=== PATIENT | female | born 1950 | race Caucasian/White ===

== ENCOUNTER 2016-06-20 13:03 | Outpatient (RCR) | payer MEDICARE ==
[2016-06-23] MEDS ORDERED: FOLI1TAB6 PO (10:51)
[2016-06-23] MEDS ORDERED: CALC600T12 PO (10:51)
[2016-06-23] MEDS ORDERED: ASCO1TAB12 PO (10:51)
[2016-06-23] MEDS ORDERED: RAMI2.5C PO (10:51)
[2016-06-23] MEDS ORDERED: IBUP-30 PO (10:51)
[2016-06-23] MEDS ORDERED: PRAV40TA2 PO (10:51)
[2016-06-23] MEDS ORDERED: OMG1KC PO (10:51)
[2016-06-23] MEDS ORDERED: AMIT50TA3 PO (10:51)
[2016-06-23] MEDS ORDERED: RT-ALBUINH IH (10:51)
[2016-06-23] MEDS ORDERED: ESTR0.5T PO (10:51)
[2016-06-23] MEDS ORDERED: CYCL5TAB PO (10:51)
[2016-06-23] MEDS ORDERED: HYDR-3812 PO (11:52)
== END 2016-09-18 | disposition home or self-care (01) ==
LOC: FS 13:03
PROVIDERS: ATTEND Internal Medicine Hematology & Oncology
DX: C34.2 Malignant neoplasm of middle lobe, bronchus or lung (principal); C77.1 Secondary and unspecified malignant neoplasm of intrathoracic lymph nodes; J44.9 Chronic obstructive pulmonary disease, unspecified; F17.210 Nicotine dependence, cigarettes, uncomplicated; I10 Essential (primary) hypertension; E78.00 Pure hypercholesterolemia, unspecified; Z79.899 Other long term (current) drug therapy
CPT/HCPCS: 99214

== ENCOUNTER → 2016-06-22 | Outpatient (CLI) | payer MEDICARE ==
[~2016-06-22] MED LIST: AMIT50TA3 PO; ASCO1TAB12 PO; CALC600T12 PO; CYCL5TAB PO; ESTR0.5T PO; FOLI1TAB6 PO; HYDR-3812 PO; IBUP-30 PO; OMG1KC PO; PRAV40TA2 PO; RAMI2.5C PO; RT-ALBUINH IH
== END ==
LOC: PREOP 15:05
PROVIDERS: ATTEND Surgery
DX: Z01.818 Encounter for other preprocedural examination (principal); C34.2 Malignant neoplasm of middle lobe, bronchus or lung

== ENCOUNTER 2016-06-23 08:35 | Day surgery (SDC) | payer MEDICARE ==
[~2016-06-23] VITALS: Ht 157.5 cm; Wt 75.0 kg
[2016-06-23] MEDS ORDERED: ceFAZolin 1,000 MG (ANCEF) VIAL ONE (09:01)
[2016-06-23] MEDS ORDERED: NS (IVPB) 50 ML ONE (09:01)
[2016-06-23 09:30] VITALS: BP 129/65
[2016-06-23] MEDS ORDERED: proPOfol 200 MG/20 ML (DIPRIVAN) VIAL IV ONE (09:52)
[2016-06-23] MEDS ORDERED: ONDANSETRON 4 MG/2 ML (SDV) Z0FRAN ONE (09:52)
[2016-06-23] MEDS ORDERED: DEXAMETHASONE PF 10 MG/ML (DECADRON) VIAL ONE (09:52)
[2016-06-23] MEDS ORDERED: MIDAZOLAM 2 MG/2 ML (VERSED) VIAL ONE (09:52)
[2016-06-23] MEDS ORDERED: LACTATED RINGERS 1,000 ML IV PRN (09:53)
[2016-06-23] MEDS ORDERED: fentaNYL INJECTION 100 MCG/2 ML AMP ONE (09:53)
[2016-06-23] MEDS ORDERED: ASCO1TAB12 PO (10:51)
[2016-06-23] MEDS ORDERED: RAMI2.5C PO (10:51)
[2016-06-23] MEDS ORDERED: OMG1KC PO (10:51)
[2016-06-23] MEDS ORDERED: PRAV40TA2 PO (10:51)
[2016-06-23] MEDS ORDERED: ESTR0.5T PO (10:51)
[2016-06-23] MEDS ORDERED: AMIT50TA3 PO (10:51)
[2016-06-23] MEDS ORDERED: RT-ALBUINH IH (10:51)
[2016-06-23] MEDS ORDERED: FOLI1TAB6 PO (10:51)
[2016-06-23] MEDS ORDERED: CYCL5TAB PO (10:51)
[2016-06-23] MEDS ORDERED: IBUP-30 PO (10:51)
[2016-06-23] MEDS ORDERED: CALC600T12 PO (10:51)
[2016-06-23] MEDS ORDERED: BUP/EPI 0.25% 1:200,000 (MARCAINE) 30 ML VIAL ONE (10:54)
[2016-06-23] MEDS ORDERED: HEParin (CENTRAL IV FLUSH) 500 UNIT/5 ML SYR ONE (10:54)
[2016-06-23] MEDS ORDERED: SEVOFLURANE (ULTANE) 15 ML INHAL SOLN ONE (11:46)
[2016-06-23] MEDS ORDERED: LACTATED RINGERS 1,000 ML IV ONE (11:47)
--- NOTE | 2016-06-23 11:51 | Progress Note-Pre Operative ---
Pre-Operative Progress Note H&P Reviewed The H&P was reviewed, patient examined and no changes noted. Date H&P Reviewed: Jun 23, 2016 Time H&P Reviewed: 08:15 Pre-Operative Diagnosis: Inoperable carcinoma of right lung ANANYA ABREU MD Jun 23, 2016 11:51 am
[2016-06-23] MEDS ORDERED: HYDR-3812 PO (11:52)
--- NOTE | 2016-06-23 11:52 | Progress Note-Post Operative ---
Post-Operative Progess Note Pre-Operative Diagnosis Inoperable carcinoma of right lung Post-Operative Diagnosis Same Post-Op Procedure Note Date of Procedure: Jun 23, 2016 Name of Procedure: Lnxntl-u-Ajxx placement Anesthesia Type Gen. Estimated blood loss (mL): Minimal ANANYA ABREU MD Jun 23, 2016 11:52 am
--- NOTE | 2016-06-23 11:53 | Discharge Inst-Simple/Standard ---
Discharge Inst-Standard Discharge Medications New, Converted or Re-Newed RX: RX on Chart Patient Instructions/Follow Up Plan of Care/Instructions/FU: Dressings off in 48 hours. May use the port Activity as Tolerated: Yes Discharge Diet: No Restrictions ANANYA ABREU MD Jun 23, 2016 11:53 am
[2016-06-23] MEDS ORDERED: morphine INJ 10 MG/ML 1ML (SYR OR VIAL) IV PRN (12:00)
[2016-06-23] MEDS ORDERED: ONDANSETRON 4 MG/2 ML (SDV) Z0FRAN IV PRN (12:00)
[2016-06-23] MEDS ORDERED: CATHETER FLUSH 10 ML SYR IV PRN (12:15)
[2016-06-23] MEDS ORDERED: ceFAZolin 1 GM/NS 50 ML IVPB IV ONE ×2 (12:15)
[2016-06-23 12:45] VITALS: BP 116/54
[2016-06-23 13:15] VITALS: BP 106/54
[2016-06-23] MEDS ORDERED: HYDROcodone/APAP 5 MG/325 MG (LORTAB) TAB PO ONE (13:30)
[2016-06-23 13:45] VITALS: BP 147/63
--- NOTE | 2016-06-23 18:20 | Diagnostic Imaging Report ---
INDICATION: Port placement. Fluoroscopy was utilized in the operating room during placement of chest wall port. Digital image obtained over the upper thoracic spine reveals catheter reaching the level of upper superior vena cava. IMPRESSION: Catheter reaches superior vena cava. Dictated by: Dictated on workstation # [id number]
--- NOTE | 2016-06-23 19:14 | OPERATIVE REPORT ---
PROCEDURE PHYSICIAN: ANANYA ABREU DATE OF PROCEDURE: 06/23/2016 PREOPERATIVE DIAGNOSIS: Carcinoma of the right lung. POSTOPERATIVE DIAGNOSIS: Carcinoma of the right lung. OPERATION: 1. Ultrasound localization of right internal jugular vein. 2. Intraoperative fluoroscopy. 3. Qxkufh-i-Nghb placement. SURGEON: Dr. Abreu. INDICATION FOR THE PROCEDURE: This lady is due to receive systemic chemotherapy to manage inoperable carcinoma of the middle lobe of the right lung. To facilitate this, placing an Kgclhs-b-Gwjp was felt to be reasonable. Informed consent was obtained after reviewing the operative details and complications of hematoma, wound infection, bacteremia and malfunction of the catheter, requiring replacement. DESCRIPTION OF PROCEDURE: She was placed supine on the operative table and general anesthesia induced using a laryngeal mask airway. A gram of Ancef was administered intravenously as prophylaxis against wound infection. Sequential compression devices were placed around her legs, to minimize the risk of venous thrombosis. Her neck and upper chest were prepared and draped in the usual sterile manner. Right internal jugular vein was localized using a 10 MHz ultrasound probe and a floppy guidewire introduced into the heart, under fluoroscopy. A subcutaneous pocket was created over the infraclavicular fossa and the Carlton catheter brought into the neck, in a retrograde fashion. It was advanced into the heart, under fluoroscopy using the peel-away sheath. The catheter was then pulled back to the superior vena cava and connected to the Ivmnvz-k-Btxw, that had been primed with heparinized saline. I was able to aspirate and flush the system without any difficulty. The port was then secured to the pectoralis tissue, using 2-0 Prolene sutures. The incision was then closed using 3-0 Vicryl for the dermal layer and 4-0 Vicryl for skin, in a subcuticular fashion. Preemptive analgesia was established using 0.25% Marcaine with epinephrine. She tolerated the procedure well, was extubated in the operating room and taken to the recovery room in a stable condition. [place], sponges, and instruments were correct at the end of the operation. Job ID: [id number] Dictated Date: 06/23/2016 11:57:12 Assistant Softball Coach Date: 06/23/2016 19:12:06 / delphine
== END 2016-06-23 13:46 | disposition home or self-care (01) ==
LOC: SDC 08:35
PROVIDERS: ATTEND Surgery
DX: C34.2 Malignant neoplasm of middle lobe, bronchus or lung (principal)
CPT/HCPCS: 87081

== ENCOUNTER 2016-08-21 13:38 | Outpatient (RCR) | payer MEDICARE ==
[2016-06-22 13:42] LABS: BASOPHILS # (AUTO) 0.1 10^3/uL (0.0-0.1); BASOPHILS % (AUTO) 0 % (0-10); EOSINOPHILS # (AUTO) 0.3 10^3/uL (0.0-0.3); EOSINOPHILS % (AUTO) 2 % (0-10); LYMPHOCYTES % (AUTO) 26 % (12-44); MEAN CORPUSCULAR HEMOGLOBIN 23 PG (25-34); MEAN CORPUSCULAR HGB CONC 30 G/DL (32-36); MEAN CORPUSCULAR VOLUME 76 FL (80-99); MEAN PLATELET VOLUME 8.4 FL (7.4-10.4); MONOCYTES # (AUTO) 1.4 X 10^3 (0.0-1.0); MONOCYTES % (AUTO) 12 % (0-12); NEUTROPHILS # (AUTO) 6.7 X 10^3 (1.8-7.8); NEUTROPHILS % (AUTO) 59 % (42-75); PLATELET COUNT 696 10^3/uL (130-400); RED BLOOD COUNT 3.81 10^6/uL (4.35-5.85); RED CELL DISTRIBUTION WIDTH 18.7 % (10.0-14.5); WHITE BLOOD COUNT 11.5 10^3/uL (4.3-11.0)
[2016-06-22 14:23] LABS: ALANINE AMINOTRANSFERASE 16 U/L (0-55); ALBUMIN 3.8 G/DL (3.2-4.5); ANION GAP 10 MMOL/L (5-14); ASPARTATE AMINO TRANSFERASE 16 U/L (5-34); BILIRUBIN,TOTAL 0.2 MG/DL (0.1-1.0); BLOOD UREA NITROGEN 14 MG/DL (7-18); BUN/CREATININE RATIO 18; CALCIUM 9.1 MG/DL (8.5-10.1); CARBON DIOXIDE 25 MMOL/L (21-32); CHLORIDE 104 MMOL/L (98-107); CREATININE SERUM 0.77 MG/DL (0.60-1.30); GFR ESTIMATED > 60; GLUCOSE 112 MG/DL (70-105); POTASSIUM 3.9 MMOL/L (3.6-5.0); SODIUM 139 MMOL/L (135-145); TOTAL PROTEIN 6.8 G/DL (6.4-8.2)
[2016-07-03 10:43] LABS: BASOPHILS % (AUTO) 0 % (0-10); EOSINOPHILS % (AUTO) 0 % (0-10); LYMPHOCYTES # (AUTO) 0.7 X 10^3 (1.0-4.0); LYMPHOCYTES % (AUTO) 5 % (12-44); MEAN CORPUSCULAR HEMOGLOBIN 23 PG (25-34); MEAN CORPUSCULAR HGB CONC 30 G/DL (32-36); MEAN CORPUSCULAR VOLUME 75 FL (80-99); MEAN PLATELET VOLUME 8.6 FL (7.4-10.4); MONOCYTES # (AUTO) 0.1 X 10^3 (0.0-1.0); MONOCYTES % (AUTO) 1 % (0-12); NEUTROPHILS # (AUTO) 12.8 X 10^3 (1.8-7.8); NEUTROPHILS % (AUTO) 94 % (42-75); PLATELET COUNT 630 10^3/uL (130-400); RED CELL DISTRIBUTION WIDTH 17.8 % (10.0-14.5); WHITE BLOOD COUNT 13.6 10^3/uL (4.3-11.0)
[2016-07-03 11:14] LABS: ALANINE AMINOTRANSFERASE 12 U/L (0-55); ALBUMIN 3.8 G/DL (3.2-4.5); ANION GAP 10 MMOL/L (5-14); ASPARTATE AMINO TRANSFERASE 12 U/L (5-34); BILIRUBIN,TOTAL 0.1 MG/DL (0.1-1.0); BLOOD UREA NITROGEN 15 MG/DL (7-18); BUN/CREATININE RATIO 21; CALCIUM 9.2 MG/DL (8.5-10.1); CARBON DIOXIDE 22 MMOL/L (21-32); CHLORIDE 105 MMOL/L (98-107); GFR ESTIMATED > 60; GLUCOSE 192 MG/DL (70-105); POTASSIUM 3.7 MMOL/L (3.6-5.0); SODIUM 137 MMOL/L (135-145); TOTAL PROTEIN 6.7 G/DL (6.4-8.2)
[2016-07-10 09:04] LABS: BASOPHILS % (AUTO) 0 % (0-10); EOSINOPHILS % (AUTO) 0 % (0-10); LYMPHOCYTES # (AUTO) 0.5 X 10^3 (1.0-4.0); LYMPHOCYTES % (AUTO) 5 % (12-44); MEAN CORPUSCULAR HEMOGLOBIN 24 PG (25-34); MEAN CORPUSCULAR HGB CONC 31 G/DL (32-36); MEAN CORPUSCULAR VOLUME 77 FL (80-99); MEAN PLATELET VOLUME 8.3 FL (7.4-10.4); MONOCYTES # (AUTO) 0.1 X 10^3 (0.0-1.0); MONOCYTES % (AUTO) 1 % (0-12); NEUTROPHILS # (AUTO) 8.4 X 10^3 (1.8-7.8); NEUTROPHILS % (AUTO) 94 % (42-75); PLATELET COUNT 552 10^3/uL (130-400); RED BLOOD COUNT 3.63 10^6/uL (4.35-5.85); RED CELL DISTRIBUTION WIDTH 19.7 % (10.0-14.5)
[2016-07-10 09:37] LABS: ANION GAP 11 MMOL/L (5-14); BLOOD UREA NITROGEN 15 MG/DL (7-18); BUN/CREATININE RATIO 19; CALCIUM 9.1 MG/DL (8.5-10.1); CARBON DIOXIDE 21 MMOL/L (21-32); CHLORIDE 103 MMOL/L (98-107); CREATININE SERUM 0.77 MG/DL (0.60-1.30); GFR ESTIMATED > 60; GLUCOSE 228 MG/DL (70-105); POTASSIUM 3.9 MMOL/L (3.6-5.0); SODIUM 135 MMOL/L (135-145)
[2016-07-17 09:12] LABS: BASOPHILS % (AUTO) 0 % (0-10); EOSINOPHILS % (AUTO) 0 % (0-10); LYMPHOCYTES # (AUTO) 0.3 X 10^3 (1.0-4.0); LYMPHOCYTES % (AUTO) 6 % (12-44); MEAN CORPUSCULAR HEMOGLOBIN 25 PG (25-34); MEAN CORPUSCULAR HGB CONC 31 G/DL (32-36); MEAN CORPUSCULAR VOLUME 80 FL (80-99); MEAN PLATELET VOLUME 8.5 FL (7.4-10.4); MONOCYTES % (AUTO) 1 % (0-12); NEUTROPHILS # (AUTO) 5.6 X 10^3 (1.8-7.8); NEUTROPHILS % (AUTO) 93 % (42-75); PLATELET COUNT 516 10^3/uL (130-400); RED BLOOD COUNT 3.33 10^6/uL (4.35-5.85); RED CELL DISTRIBUTION WIDTH 22.4 % (10.0-14.5)
[2016-07-17 09:39] LABS: ANION GAP 11 MMOL/L (5-14); BLOOD UREA NITROGEN 13 MG/DL (7-18); BUN/CREATININE RATIO 18; CALCIUM 9.1 MG/DL (8.5-10.1); CARBON DIOXIDE 23 MMOL/L (21-32); CHLORIDE 103 MMOL/L (98-107); CREATININE SERUM 0.71 MG/DL (0.60-1.30); GFR ESTIMATED > 60; GLUCOSE 198 MG/DL (70-105); POTASSIUM 3.7 MMOL/L (3.6-5.0); SODIUM 137 MMOL/L (135-145)
[2016-07-24 08:51] LABS: BASOPHILS % (AUTO) 0 % (0-10); EOSINOPHILS # (AUTO) 0.1 10^3/uL (0.0-0.3); EOSINOPHILS % (AUTO) 1 % (0-10); LYMPHOCYTES # (AUTO) 0.5 X 10^3 (1.0-4.0); LYMPHOCYTES % (AUTO) 9 % (12-44); MEAN CORPUSCULAR HEMOGLOBIN 25 PG (25-34); MEAN CORPUSCULAR HGB CONC 31 G/DL (32-36); MEAN CORPUSCULAR VOLUME 81 FL (80-99); MEAN PLATELET VOLUME 8.9 FL (7.4-10.4); MONOCYTES # (AUTO) 0.9 X 10^3 (0.0-1.0); MONOCYTES % (AUTO) 16 % (0-12); NEUTROPHILS # (AUTO) 4.3 X 10^3 (1.8-7.8); NEUTROPHILS % (AUTO) 74 % (42-75); PLATELET COUNT 469 10^3/uL (130-400); RED BLOOD COUNT 3.29 10^6/uL (4.35-5.85); RED CELL DISTRIBUTION WIDTH 23.7 % (10.0-14.5); WHITE BLOOD COUNT 5.9 10^3/uL (4.3-11.0)
[2016-07-24 09:28] LABS: ALANINE AMINOTRANSFERASE 21 U/L (0-55); ALBUMIN 3.3 G/DL (3.2-4.5); ANION GAP 9 MMOL/L (5-14); ASPARTATE AMINO TRANSFERASE 16 U/L (5-34); BILIRUBIN,TOTAL 0.2 MG/DL (0.1-1.0); BLOOD UREA NITROGEN 9 MG/DL (7-18); BUN/CREATININE RATIO 13; CALCIUM 8.9 MG/DL (8.5-10.1); CARBON DIOXIDE 25 MMOL/L (21-32); CHLORIDE 103 MMOL/L (98-107); GFR ESTIMATED > 60; GLUCOSE 156 MG/DL (70-105); MAGNESIUM 1.7 MG/DL (1.8-2.4); POTASSIUM 3.7 MMOL/L (3.6-5.0); SODIUM 137 MMOL/L (135-145)
[2016-07-31 09:17] LABS: BASOPHILS % (AUTO) 0 % (0-10); EOSINOPHILS # (AUTO) 0.1 10^3/uL (0.0-0.3); EOSINOPHILS % (AUTO) 1 % (0-10); LYMPHOCYTES # (AUTO) 0.9 X 10^3 (1.0-4.0); LYMPHOCYTES % (AUTO) 12 % (12-44); MEAN CORPUSCULAR HEMOGLOBIN 26 PG (25-34); MEAN CORPUSCULAR HGB CONC 32 G/DL (32-36); MEAN CORPUSCULAR VOLUME 82 FL (80-99); MEAN PLATELET VOLUME 8.7 FL (7.4-10.4); MONOCYTES # (AUTO) 1.2 X 10^3 (0.0-1.0); MONOCYTES % (AUTO) 17 % (0-12); NEUTROPHILS # (AUTO) 4.9 X 10^3 (1.8-7.8); NEUTROPHILS % (AUTO) 69 % (42-75); PLATELET COUNT 483 10^3/uL (130-400); RED CELL DISTRIBUTION WIDTH 23.3 % (10.0-14.5); WHITE BLOOD COUNT 7.1 10^3/uL (4.3-11.0)
[2016-07-31 09:37] LABS: ANION GAP 9 MMOL/L (5-14); BLOOD UREA NITROGEN 14 MG/DL (7-18); BUN/CREATININE RATIO 18; CALCIUM 8.9 MG/DL (8.5-10.1); CARBON DIOXIDE 25 MMOL/L (21-32); CHLORIDE 103 MMOL/L (98-107); CREATININE SERUM 0.79 MG/DL (0.60-1.30); GFR ESTIMATED > 60; GLUCOSE 106 MG/DL (70-105); POTASSIUM 3.8 MMOL/L (3.6-5.0); SODIUM 137 MMOL/L (135-145)
[2016-08-07 09:19] LABS: BASOPHILS % (AUTO) 0 % (0-10); EOSINOPHILS # (AUTO) 0.1 10^3/uL (0.0-0.3); EOSINOPHILS % (AUTO) 2 % (0-10); LYMPHOCYTES % (AUTO) 17 % (12-44); MEAN CORPUSCULAR HEMOGLOBIN 26 PG (25-34); MEAN CORPUSCULAR HGB CONC 31 G/DL (32-36); MEAN CORPUSCULAR VOLUME 84 FL (80-99); MEAN PLATELET VOLUME 8.8 FL (7.4-10.4); MONOCYTES % (AUTO) 16 % (0-12); NEUTROPHILS # (AUTO) 3.9 X 10^3 (1.8-7.8); NEUTROPHILS % (AUTO) 66 % (42-75); PLATELET COUNT 452 10^3/uL (130-400); RED BLOOD COUNT 3.77 10^6/uL (4.35-5.85); WHITE BLOOD COUNT 5.9 10^3/uL (4.3-11.0)
[2016-08-07 09:51] LABS: ANION GAP 8 MMOL/L (5-14); BLOOD UREA NITROGEN 10 MG/DL (7-18); BUN/CREATININE RATIO 15; CARBON DIOXIDE 25 MMOL/L (21-32); CHLORIDE 106 MMOL/L (98-107); CREATININE SERUM 0.68 MG/DL (0.60-1.30); GFR ESTIMATED > 60; GLUCOSE 109 MG/DL (70-105); POTASSIUM 3.9 MMOL/L (3.6-5.0); SODIUM 139 MMOL/L (135-145)
[2016-08-14 09:45] LABS: BASOPHILS % (AUTO) 0 % (0-10); EOSINOPHILS # (AUTO) 0.1 10^3/uL (0.0-0.3); EOSINOPHILS % (AUTO) 1 % (0-10); LYMPHOCYTES # (AUTO) 1.1 X 10^3 (1.0-4.0); LYMPHOCYTES % (AUTO) 18 % (12-44); MEAN CORPUSCULAR HEMOGLOBIN 27 PG (25-34); MEAN CORPUSCULAR HGB CONC 32 G/DL (32-36); MEAN CORPUSCULAR VOLUME 86 FL (80-99); MONOCYTES # (AUTO) 0.8 X 10^3 (0.0-1.0); MONOCYTES % (AUTO) 14 % (0-12); NEUTROPHILS # (AUTO) 4.1 X 10^3 (1.8-7.8); NEUTROPHILS % (AUTO) 68 % (42-75); PLATELET COUNT 399 10^3/uL (130-400); RED BLOOD COUNT 3.85 10^6/uL (4.35-5.85); RED CELL DISTRIBUTION WIDTH 26.5 % (10.0-14.5); WHITE BLOOD COUNT 6.1 10^3/uL (4.3-11.0)
[2016-08-14 10:17] LABS: ALANINE AMINOTRANSFERASE 23 U/L (0-55); ALBUMIN 3.7 G/DL (3.2-4.5); ANION GAP 8 MMOL/L (5-14); ASPARTATE AMINO TRANSFERASE 15 U/L (5-34); BILIRUBIN,TOTAL 0.3 MG/DL (0.1-1.0); BLOOD UREA NITROGEN 15 MG/DL (7-18); BUN/CREATININE RATIO 21; CALCIUM 9.5 MG/DL (8.5-10.1); CARBON DIOXIDE 25 MMOL/L (21-32); CHLORIDE 104 MMOL/L (98-107); CREATININE SERUM 0.71 MG/DL (0.60-1.30); GFR ESTIMATED > 60; GLUCOSE 114 MG/DL (70-105); MAGNESIUM 1.9 MG/DL (1.8-2.4); POTASSIUM 3.9 MMOL/L (3.6-5.0); SODIUM 137 MMOL/L (135-145); TOTAL PROTEIN 6.3 G/DL (6.4-8.2)
[~2016-08-21] VITALS: Ht 157.5 cm; Wt 75.3 kg
[~2016-08-21 13:38] MED LIST changes: +ACETAMINOPHEN 500 MG TAB (TYLENOL) CANCER CTR ONE; +CARBOPLATIN 170 MG in D5W 50 ML IV(CANCER CTR) 50 ML IV SCH; +FAMOTIDINE 20MG/2ML IV (CANCER CTR) IV SCH; +FERRIC CARBOXYMALTOSE (CANCER) 750 MG in NS (IVPB) CANCER CENTER 250 ML IV SCH; +NORMAL SALINE IV SCH; +NS IV 1000 ML (CANCER CTR) IV SCH; +NS IV 500 ML (CANCER CENTER) 500 ML ONE; +NS IV SCH; +PACLITAXEL IV SCH; +PALONOSETRON 0.25 MG, DEXAMETHASONE 10 MG/NS 50 ML IVPB IV PRN; +diphenhydrAMINE 25 MG TAB (BENADRYL) CANCER CENTER PO SCH; +diphenhydrAMINE 50 MG/ML INJ (CANCER CENTER) IV PRN
== END 2016-09-19 | disposition home or self-care (01) ==
LOC: ONC 13:38
PROVIDERS: ATTEND Internal Medicine Hematology & Oncology
DX: Z51.11 Encounter for antineoplastic chemotherapy (principal); Z51.0 Encounter for antineoplastic radiation therapy; C34.2 Malignant neoplasm of middle lobe, bronchus or lung; C77.1 Secondary and unspecified malignant neoplasm of intrathoracic lymph nodes; J44.9 Chronic obstructive pulmonary disease, unspecified; F17.210 Nicotine dependence, cigarettes, uncomplicated; I10 Essential (primary) hypertension; E78.00 Pure hypercholesterolemia, unspecified; Z79.899 Other long term (current) drug therapy
CPT/HCPCS: 36415; 36430; 36591; 77280; 77290; 77295; 77300; 77307; 77332; 77334; 77336; 77417; 77470; 80048; 80053; 82728; 83540; 83735; 85025; 86850; 86900; 86901; 86920; 96367; 96375; 96413; 96417; 99213; 99214

== ENCOUNTER 2016-12-11 10:50 | Outpatient (RCR) | payer MEDICARE ==
[2016-09-20 11:19] LABS: BASOPHILS % (AUTO) 1 % (0-10); EOSINOPHILS # (AUTO) 0.3 10^3/uL (0.0-0.3); EOSINOPHILS % (AUTO) 4 % (0-10); LYMPHOCYTES % (AUTO) 14 % (12-44); MEAN CORPUSCULAR HEMOGLOBIN 29 PG (25-34); MEAN CORPUSCULAR HGB CONC 32 G/DL (32-36); MEAN CORPUSCULAR VOLUME 91 FL (80-99); MEAN PLATELET VOLUME 9.1 FL (7.4-10.4); MONOCYTES % (AUTO) 14 % (0-12); NEUTROPHILS # (AUTO) 4.9 X 10^3 (1.8-7.8); NEUTROPHILS % (AUTO) 67 % (42-75); PLATELET COUNT 508 10^3/uL (130-400); RED CELL DISTRIBUTION WIDTH 23.8 % (10.0-14.5); WHITE BLOOD COUNT 7.2 10^3/uL (4.3-11.0)
[2016-09-20 11:47] LABS: ALANINE AMINOTRANSFERASE 17 U/L (0-55); ALBUMIN 4.1 G/DL (3.2-4.5); ANION GAP 9 MMOL/L (5-14); ASPARTATE AMINO TRANSFERASE 15 U/L (5-34); BILIRUBIN,TOTAL 0.2 MG/DL (0.1-1.0); BLOOD UREA NITROGEN 11 MG/DL (7-18); BUN/CREATININE RATIO 16; CALCIUM 9.7 MG/DL (8.5-10.1); CARBON DIOXIDE 26 MMOL/L (21-32); CHLORIDE 106 MMOL/L (98-107); CREATININE SERUM 0.67 MG/DL (0.60-1.30); GFR ESTIMATED > 60; GLUCOSE 106 MG/DL (70-105); MAGNESIUM 1.9 MG/DL (1.8-2.4); POTASSIUM 3.8 MMOL/L (3.6-5.0); SODIUM 141 MMOL/L (135-145)
[2016-09-20 11:49] LABS: BAND NEUTROPHILS 3 %; BASOPHILS % (MANUAL) 1 %; EOSINOPHILS % (MANUAL) 1 %; LYMPHOCYTES % (MANUAL) 18 %; NEUTROPHILS % (MANUAL) 65 %; REACTIVE LYMPHOCYTES 2 %
[2016-09-20 11:50] LABS: ANISOCYTOSIS MODERATE; HOWELL-JOLLY BODIES MODERATE; POIKILOCYTOSIS SLIGHT; TARGET CELLS SLIGHT
[2016-10-02 10:11] LABS: BASOPHILS % (AUTO) 0 % (0-10); EOSINOPHILS # (AUTO) 0.2 10^3/uL (0.0-0.3); EOSINOPHILS % (AUTO) 3 % (0-10); LYMPHOCYTES % (AUTO) 13 % (12-44); MEAN CORPUSCULAR HEMOGLOBIN 29 PG (25-34); MEAN CORPUSCULAR HGB CONC 32 G/DL (32-36); MEAN CORPUSCULAR VOLUME 92 FL (80-99); MEAN PLATELET VOLUME 9.1 FL (7.4-10.4); MONOCYTES # (AUTO) 0.6 X 10^3 (0.0-1.0); MONOCYTES % (AUTO) 8 % (0-12); NEUTROPHILS # (AUTO) 5.9 X 10^3 (1.8-7.8); NEUTROPHILS % (AUTO) 76 % (42-75); PLATELET COUNT 484 10^3/uL (130-400); RED BLOOD COUNT 3.72 10^6/uL (4.35-5.85); RED CELL DISTRIBUTION WIDTH 21.2 % (10.0-14.5); WHITE BLOOD COUNT 7.8 10^3/uL (4.3-11.0)
[2016-10-02 10:32] LABS: ANION GAP 9 MMOL/L (5-14); BLOOD UREA NITROGEN 13 MG/DL (7-18); BUN/CREATININE RATIO 19 (0-20); CALCIUM 9.4 MG/DL (8.5-10.1); CARBON DIOXIDE 26 MMOL/L (21-32); CHLORIDE 106 MMOL/L (98-107); CREATININE SERUM 0.68 MG/DL (0.60-1.30); GFR ESTIMATED > 60; GLUCOSE 124 MG/DL (70-105); HEMOLYSIS 3 (-100-29); ICTERUS 0.2 (-100-1.9); LIPEMIA 6 (-100-49); POTASSIUM 3.7 MMOL/L (3.6-5.0); SODIUM 141 MMOL/L (135-145)
[2016-10-09 10:23] LABS: BASOPHILS % (AUTO) 0 % (0-10); EOSINOPHILS # (AUTO) 0.1 10^3/uL (0.0-0.3); EOSINOPHILS % (AUTO) 1 % (0-10); LYMPHOCYTES # (AUTO) 0.8 X 10^3 (1.0-4.0); LYMPHOCYTES % (AUTO) 13 % (12-44); MEAN CORPUSCULAR HEMOGLOBIN 31 PG (25-34); MEAN CORPUSCULAR HGB CONC 33 G/DL (32-36); MEAN CORPUSCULAR VOLUME 92 FL (80-99); MONOCYTES # (AUTO) 0.8 X 10^3 (0.0-1.0); MONOCYTES % (AUTO) 13 % (0-12); NEUTROPHILS # (AUTO) 4.3 X 10^3 (1.8-7.8); NEUTROPHILS % (AUTO) 72 % (42-75); PLATELET COUNT 566 10^3/uL (130-400); RED BLOOD COUNT 3.57 10^6/uL (4.35-5.85); RED CELL DISTRIBUTION WIDTH 20.8 % (10.0-14.5)
[2016-10-09 10:44] LABS: ANION GAP 8 MMOL/L (5-14); BLOOD UREA NITROGEN 12 MG/DL (7-18); BUN/CREATININE RATIO 18 (0-20); CALCIUM 9.4 MG/DL (8.5-10.1); CARBON DIOXIDE 27 MMOL/L (21-32); CHLORIDE 104 MMOL/L (98-107); CREATININE SERUM 0.66 MG/DL (0.60-1.30); GFR ESTIMATED > 60; GLUCOSE 100 MG/DL (70-105); HEMOLYSIS 4 (-100-29); ICTERUS 0.3 (-100-1.9); LIPEMIA 4 (-100-49); POTASSIUM 3.9 MMOL/L (3.6-5.0); SODIUM 139 MMOL/L (135-145)
[2016-10-23 11:03] LABS: BASOPHILS % (AUTO) 0 % (0-10); EOSINOPHILS # (AUTO) 0.1 10^3/uL (0.0-0.3); EOSINOPHILS % (AUTO) 1 % (0-10); LYMPHOCYTES % (AUTO) 12 % (12-44); MEAN CORPUSCULAR HEMOGLOBIN 30 PG (25-34); MEAN CORPUSCULAR HGB CONC 32 G/DL (32-36); MEAN CORPUSCULAR VOLUME 94 FL (80-99); MEAN PLATELET VOLUME 8.8 FL (7.4-10.4); MONOCYTES # (AUTO) 1.2 X 10^3 (0.0-1.0); MONOCYTES % (AUTO) 14 % (0-12); NEUTROPHILS # (AUTO) 5.8 X 10^3 (1.8-7.8); NEUTROPHILS % (AUTO) 72 % (42-75); PLATELET COUNT 486 10^3/uL (130-400); RED BLOOD COUNT 3.58 10^6/uL (4.35-5.85); WHITE BLOOD COUNT 8.1 10^3/uL (4.3-11.0)
[2016-10-23 11:29] LABS: ALANINE AMINOTRANSFERASE 17 U/L (0-55); ALBUMIN 3.7 GM/DL (3.2-4.5); ANION GAP 8 MMOL/L (5-14); ASPARTATE AMINO TRANSFERASE 14 U/L (5-34); BILIRUBIN,TOTAL 0.3 MG/DL (0.1-1.0); BLOOD UREA NITROGEN 12 MG/DL (7-18); BUN/CREATININE RATIO 17; CALCIUM 9.6 MG/DL (8.5-10.1); CARBON DIOXIDE 25 MMOL/L (21-32); CHLORIDE 104 MMOL/L (98-107); CREATININE SERUM 0.71 MG/DL (0.60-1.30); GFR ESTIMATED > 60; GLUCOSE 109 MG/DL (70-105); MAGNESIUM 1.7 MG/DL (1.8-2.4); POTASSIUM 3.8 MMOL/L (3.6-5.0); SODIUM 137 MMOL/L (135-145); TOTAL PROTEIN 6.8 GM/DL (6.4-8.2)
[2016-10-30 09:16] LABS: BASOPHILS % (AUTO) 0 % (0-10); EOSINOPHILS # (AUTO) 0.1 10^3/uL (0.0-0.3); EOSINOPHILS % (AUTO) 1 % (0-10); LYMPHOCYTES # (AUTO) 0.8 X 10^3 (1.0-4.0); LYMPHOCYTES % (AUTO) 10 % (12-44); MEAN CORPUSCULAR HEMOGLOBIN 31 PG (25-34); MEAN CORPUSCULAR HGB CONC 33 G/DL (32-36); MEAN CORPUSCULAR VOLUME 95 FL (80-99); MEAN PLATELET VOLUME 8.9 FL (7.4-10.4); MONOCYTES # (AUTO) 0.8 X 10^3 (0.0-1.0); MONOCYTES % (AUTO) 10 % (0-12); NEUTROPHILS # (AUTO) 6.8 X 10^3 (1.8-7.8); NEUTROPHILS % (AUTO) 80 % (42-75); PLATELET COUNT 469 10^3/uL (130-400); RED BLOOD COUNT 3.41 10^6/uL (4.35-5.85); WHITE BLOOD COUNT 8.5 10^3/uL (4.3-11.0)
[2016-10-30 09:51] LABS: ANION GAP 11 MMOL/L (5-14); BLOOD UREA NITROGEN 9 MG/DL (7-18); BUN/CREATININE RATIO 13; CALCIUM 9.2 MG/DL (8.5-10.1); CARBON DIOXIDE 24 MMOL/L (21-32); CHLORIDE 105 MMOL/L (98-107); CREATININE SERUM 0.69 MG/DL (0.60-1.30); GFR ESTIMATED > 60; GLUCOSE 107 MG/DL (70-105); POTASSIUM 3.5 MMOL/L (3.6-5.0); SODIUM 140 MMOL/L (135-145)
[2016-11-06 09:11] LABS: BASOPHILS % (AUTO) 1 % (0-10); EOSINOPHILS # (AUTO) 0.1 10^3/uL (0.0-0.3); EOSINOPHILS % (AUTO) 1 % (0-10); LYMPHOCYTES # (AUTO) 0.8 X 10^3 (1.0-4.0); LYMPHOCYTES % (AUTO) 12 % (12-44); MEAN CORPUSCULAR HEMOGLOBIN 31 PG (25-34); MEAN CORPUSCULAR HGB CONC 32 G/DL (32-36); MEAN CORPUSCULAR VOLUME 95 FL (80-99); MEAN PLATELET VOLUME 9.2 FL (7.4-10.4); MONOCYTES # (AUTO) 0.7 X 10^3 (0.0-1.0); MONOCYTES % (AUTO) 11 % (0-12); NEUTROPHILS # (AUTO) 4.9 X 10^3 (1.8-7.8); NEUTROPHILS % (AUTO) 76 % (42-75); PLATELET COUNT 410 10^3/uL (130-400); RED BLOOD COUNT 3.24 10^6/uL (4.35-5.85); WHITE BLOOD COUNT 6.5 10^3/uL (4.3-11.0)
[2016-11-06 09:43] LABS: ANION GAP 9 MMOL/L (5-14); BLOOD UREA NITROGEN 13 MG/DL (7-18); BUN/CREATININE RATIO 21; CALCIUM 9.3 MG/DL (8.5-10.1); CARBON DIOXIDE 25 MMOL/L (21-32); CHLORIDE 104 MMOL/L (98-107); CREATININE SERUM 0.63 MG/DL (0.60-1.30); GFR ESTIMATED > 60; GLUCOSE 107 MG/DL (70-105); POTASSIUM 3.7 MMOL/L (3.6-5.0); SODIUM 138 MMOL/L (135-145)
[2016-11-20 10:09] LABS: BASOPHILS % (AUTO) 0 % (0-10); EOSINOPHILS # (AUTO) 0.1 10^3/uL (0.0-0.3); EOSINOPHILS % (AUTO) 1 % (0-10); LYMPHOCYTES # (AUTO) 0.8 X 10^3 (1.0-4.0); LYMPHOCYTES % (AUTO) 13 % (12-44); MEAN CORPUSCULAR HEMOGLOBIN 31 PG (25-34); MEAN CORPUSCULAR HGB CONC 33 G/DL (32-36); MEAN CORPUSCULAR VOLUME 96 FL (80-99); MEAN PLATELET VOLUME 8.9 FL (7.4-10.4); MONOCYTES # (AUTO) 0.8 X 10^3 (0.0-1.0); MONOCYTES % (AUTO) 14 % (0-12); NEUTROPHILS % (AUTO) 71 % (42-75); PLATELET COUNT 518 10^3/uL (130-400); RED BLOOD COUNT 3.38 10^6/uL (4.35-5.85); WHITE BLOOD COUNT 5.6 10^3/uL (4.3-11.0)
[2016-11-20 10:41] LABS: ALANINE AMINOTRANSFERASE 17 U/L (0-55); ALBUMIN 3.5 GM/DL (3.2-4.5); ANION GAP 11 MMOL/L (5-14); ASPARTATE AMINO TRANSFERASE 17 U/L (5-34); BILIRUBIN,TOTAL 0.3 MG/DL (0.1-1.0); BLOOD UREA NITROGEN 13 MG/DL (7-18); BUN/CREATININE RATIO 19; CALCIUM 9.7 MG/DL (8.5-10.1); CARBON DIOXIDE 22 MMOL/L (21-32); CHLORIDE 106 MMOL/L (98-107); CREATININE SERUM 0.69 MG/DL (0.60-1.30); GFR ESTIMATED > 60; GLUCOSE 107 MG/DL (70-105); MAGNESIUM 1.6 MG/DL (1.8-2.4); POTASSIUM 3.6 MMOL/L (3.6-5.0); SODIUM 139 MMOL/L (135-145); TOTAL PROTEIN 6.7 GM/DL (6.4-8.2)
--- NOTE | 2016-11-20 11:11 | Diagnostic Imaging Report ---
EXAMINATION: PA and lateral views of the chest. INDICATION: Lung cancer. Shortness of breath. COMPARISON: 04/28/2007. FINDINGS: There is an infusion port through the right IJ with the tip at the upper SVC level. There are predominantly interstitial infiltrates seen in the right lung and a small right pleural effusion. The left lung is clear. The heart size is normal. No effusion or pneumothorax. The mediastinum and isamar appear unremarkable. If comparison study is available from a more recent date, it can be helpful. IMPRESSION: Predominantly interstitial infiltrates seen in the right lung with a small right pleural effusion. Consider possibility of atypical pneumonia. Dictated by: Dictated on workstation # [id number]
[2016-12-04 10:02] LABS: BASOPHILS % (AUTO) 0 % (0-10); EOSINOPHILS % (AUTO) 0 % (0-10); LYMPHOCYTES # (AUTO) 0.9 X 10^3 (1.0-4.0); LYMPHOCYTES % (AUTO) 6 % (12-44); MEAN CORPUSCULAR HEMOGLOBIN 31 PG (25-34); MEAN CORPUSCULAR HGB CONC 33 G/DL (32-36); MEAN CORPUSCULAR VOLUME 95 FL (80-99); MEAN PLATELET VOLUME 8.4 FL (7.4-10.4); MONOCYTES # (AUTO) 1.3 X 10^3 (0.0-1.0); MONOCYTES % (AUTO) 8 % (0-12); NEUTROPHILS # (AUTO) 13.9 X 10^3 (1.8-7.8); NEUTROPHILS % (AUTO) 86 % (42-75); PLATELET COUNT 495 10^3/uL (130-400); RED BLOOD COUNT 3.67 10^6/uL (4.35-5.85); RED CELL DISTRIBUTION WIDTH 17.9 % (10.0-14.5); WHITE BLOOD COUNT 16.1 10^3/uL (4.3-11.0)
[2016-12-04 10:34] LABS: ANION GAP 8 MMOL/L (5-14); BLOOD UREA NITROGEN 19 MG/DL (7-18); BUN/CREATININE RATIO 27; CARBON DIOXIDE 28 MMOL/L (21-32); CHLORIDE 101 MMOL/L (98-107); GFR ESTIMATED > 60; GLUCOSE 152 MG/DL (70-105); POTASSIUM 3.8 MMOL/L (3.6-5.0); SODIUM 137 MMOL/L (135-145)
[~2016-12-11] VITALS: Ht 157.5 cm; Wt 72.6 kg
[~2016-12-11 10:50] MED LIST changes: -ACETAMINOPHEN 500 MG TAB (TYLENOL) CANCER CTR ONE; -NS IV 500 ML (CANCER CENTER) 500 ML ONE; -NS IV SCH; +PACLITAXEL 130 MG in NORMAL SALINE (CANCER CENTER) 250 ML IV SCH; +PALONOSETRON HCL 0.25 MG, DEXAMETHASONE PF INJ (CANCER C 5 MG in NS (IVPB) CANCER CENTE... IV PRN; -diphenhydrAMINE 50 MG/ML INJ (CANCER CENTER) IV PRN
[2016-12-11 11:31] LABS: BASOPHILS % (AUTO) 0 % (0-10); EOSINOPHILS # (AUTO) 0.1 10^3/uL (0.0-0.3); EOSINOPHILS % (AUTO) 1 % (0-10); LYMPHOCYTES # (AUTO) 0.8 X 10^3 (1.0-4.0); LYMPHOCYTES % (AUTO) 8 % (12-44); MEAN CORPUSCULAR HEMOGLOBIN 30 PG (25-34); MEAN CORPUSCULAR HGB CONC 32 G/DL (32-36); MEAN CORPUSCULAR VOLUME 95 FL (80-99); MONOCYTES # (AUTO) 0.7 X 10^3 (0.0-1.0); MONOCYTES % (AUTO) 7 % (0-12); NEUTROPHILS # (AUTO) 8.9 X 10^3 (1.8-7.8); NEUTROPHILS % (AUTO) 85 % (42-75); PLATELET COUNT 423 10^3/uL (130-400); RED BLOOD COUNT 3.49 10^6/uL (4.35-5.85); RED CELL DISTRIBUTION WIDTH 17.7 % (10.0-14.5); WHITE BLOOD COUNT 10.5 10^3/uL (4.3-11.0)
[2016-12-11 11:51] LABS: ANION GAP 10 MMOL/L (5-14); BLOOD UREA NITROGEN 17 MG/DL (7-18); BUN/CREATININE RATIO 27; CALCIUM 9.2 MG/DL (8.5-10.1); CARBON DIOXIDE 25 MMOL/L (21-32); CHLORIDE 103 MMOL/L (98-107); CREATININE SERUM 0.62 MG/DL (0.60-1.30); GFR ESTIMATED > 60; GLUCOSE 119 MG/DL (70-105); POTASSIUM 3.6 MMOL/L (3.6-5.0); SODIUM 138 MMOL/L (135-145)
[2016-12-19] MEDS ORDERED: CYCL10TA9 PO (11:11)
[2016-12-19] MEDS ORDERED: FLUT1AER IH (11:11)
[2016-12-19] MEDS ORDERED: CA C1TAB75 PO (11:11)
[2016-12-19] MEDS ORDERED: HYDR-3812 PO (11:11)
[2016-12-19] MEDS ORDERED: DOCU-143 PO (11:12)
== END 2016-12-19 | disposition home or self-care (01) ==
LOC: ONC 10:50
PROVIDERS: ATTEND Internal Medicine Hematology & Oncology
DX: Z51.11 Encounter for antineoplastic chemotherapy (principal); C34.2 Malignant neoplasm of middle lobe, bronchus or lung; C77.1 Secondary and unspecified malignant neoplasm of intrathoracic lymph nodes; J44.9 Chronic obstructive pulmonary disease, unspecified; F17.210 Nicotine dependence, cigarettes, uncomplicated; I10 Essential (primary) hypertension; E78.00 Pure hypercholesterolemia, unspecified; Z79.899 Other long term (current) drug therapy
CPT/HCPCS: 36591; 71020; 80048; 80053; 83735; 85007; 85025; 85027; 96375; 96413; 96417; 99213

== ENCOUNTER 2016-12-18 21:48 | Inpatient (IN) | payer MEDICARE ==
[~2016-12-18] VITALS: Ht 160 cm; Wt 78.0 kg
[~2016-12-18 21:48] MED LIST changes: -CARBOPLATIN 170 MG in D5W 50 ML IV(CANCER CTR) 50 ML IV SCH; -FAMOTIDINE 20MG/2ML IV (CANCER CTR) IV SCH; -FERRIC CARBOXYMALTOSE (CANCER) 750 MG in NS (IVPB) CANCER CENTER 250 ML IV SCH; -NORMAL SALINE IV SCH; -NS IV 1000 ML (CANCER CTR) IV SCH; -PACLITAXEL 130 MG in NORMAL SALINE (CANCER CENTER) 250 ML IV SCH; -PACLITAXEL IV SCH; -PALONOSETRON 0.25 MG, DEXAMETHASONE 10 MG/NS 50 ML IVPB IV PRN; -PALONOSETRON HCL 0.25 MG, DEXAMETHASONE PF INJ (CANCER C 5 MG in NS (IVPB) CANCER CENTE... IV PRN; -diphenhydrAMINE 25 MG TAB (BENADRYL) CANCER CENTER PO SCH
[2016-12-18] MEDS ORDERED: morphine INJ 10 MG/ML 1ML (SYR OR VIAL) IVP STA (22:34)
[2016-12-18 22:52] LABS: BASOPHILS % (AUTO) 0 % (0-10); EOSINOPHILS # (AUTO) 0.1 10^3/uL (0.0-0.3); EOSINOPHILS % (AUTO) 1 % (0-10); LYMPHOCYTES # (AUTO) 0.9 X 10^3 (1.0-4.0); LYMPHOCYTES % (AUTO) 10 % (12-44); MEAN CORPUSCULAR HEMOGLOBIN 31 PG (25-34); MEAN CORPUSCULAR HGB CONC 33 G/DL (32-36); MEAN CORPUSCULAR VOLUME 94 FL (80-99); MEAN PLATELET VOLUME 9.3 FL (7.4-10.4); MONOCYTES # (AUTO) 0.8 X 10^3 (0.0-1.0); MONOCYTES % (AUTO) 9 % (0-12); NEUTROPHILS # (AUTO) 7.4 X 10^3 (1.8-7.8); NEUTROPHILS % (AUTO) 80 % (42-75); PLATELET COUNT 406 10^3/uL (130-400); RED BLOOD COUNT 3.33 10^6/uL (4.35-5.85); WHITE BLOOD COUNT 9.2 10^3/uL (4.3-11.0)
[2016-12-18 23:03] LABS: PROTHROMBIN TIME PATIENT 12.9 SEC (12.2-14.7)
[2016-12-18 23:14] LABS: ALANINE AMINOTRANSFERASE 19 U/L (0-55); ALBUMIN 3.4 GM/DL (3.2-4.5); ANION GAP 9 MMOL/L (5-14); ASPARTATE AMINO TRANSFERASE 9 U/L (5-34); BILIRUBIN,TOTAL 0.4 MG/DL (0.1-1.0); BLOOD UREA NITROGEN 18 MG/DL (7-18); BUN/CREATININE RATIO 27; CARBON DIOXIDE 24 MMOL/L (21-32); CHLORIDE 100 MMOL/L (98-107); CREATININE SERUM 0.66 MG/DL (0.60-1.30); GFR ESTIMATED > 60; GLUCOSE 140 MG/DL (70-105); POTASSIUM 3.7 MMOL/L (3.6-5.0); SODIUM 133 MMOL/L (135-145)
[2016-12-19] VITALS (11 sets, daily range): BP systolic 92–148; BP diastolic 48–88
[2016-12-19] MEDS ORDERED: LEVOFLOXACIN 750 MG/150 ML IV 150 ML IV ONE
[2016-12-19] MEDS ORDERED: NS (IVPB) 0 ML ONE ×2 (01:31→20:18)
[2016-12-19] MEDS ORDERED: CEFEPIME 1 GM (MAXIPIME) VIAL ONE (01:31)
[2016-12-19] MEDS ORDERED: NS (IVPB) 50 ML ONE (01:33)
[2016-12-19] MEDS ORDERED: CEFEPIME HCL 2 GM (MAXIPIME) VIAL ONE (01:33)
[2016-12-19] MEDS ORDERED: CATHETER FLUSH 10 ML SYR IV PRN (03:30)
[2016-12-19] MEDS ORDERED: RT-ALBUTEROL/IPRATROPIUM 3 ML (DUONEB) VIAL INH PRN (03:30)
[2016-12-19] MEDS: morphine INJ 4 MG/ML 1 ML (VIAL/SYRINGE) IV PRN ×4 (03:34→17:37)
[2016-12-19 05:36] LABS: BASOPHILS % (AUTO) 0 % (0-10); EOSINOPHILS # (AUTO) 0.1 10^3/uL (0.0-0.3); EOSINOPHILS % (AUTO) 1 % (0-10); LYMPHOCYTES # (AUTO) 0.8 X 10^3 (1.0-4.0); LYMPHOCYTES % (AUTO) 8 % (12-44); MEAN CORPUSCULAR HEMOGLOBIN 31 PG (25-34); MEAN CORPUSCULAR HGB CONC 33 G/DL (32-36); MEAN CORPUSCULAR VOLUME 94 FL (80-99); MEAN PLATELET VOLUME 9.3 FL (7.4-10.4); MONOCYTES # (AUTO) 0.8 X 10^3 (0.0-1.0); MONOCYTES % (AUTO) 8 % (0-12); NEUTROPHILS # (AUTO) 7.8 X 10^3 (1.8-7.8); NEUTROPHILS % (AUTO) 83 % (42-75); PLATELET COUNT 385 10^3/uL (130-400); RED BLOOD COUNT 3.42 10^6/uL (4.35-5.85); RED CELL DISTRIBUTION WIDTH 17.9 % (10.0-14.5); WHITE BLOOD COUNT 9.3 10^3/uL (4.3-11.0)
[2016-12-19 05:58] LABS: ALANINE AMINOTRANSFERASE 18 U/L (0-55); ALBUMIN 3.2 GM/DL (3.2-4.5); ANION GAP 9 MMOL/L (5-14); ASPARTATE AMINO TRANSFERASE 10 U/L (5-34); BILIRUBIN,TOTAL 0.4 MG/DL (0.1-1.0); BLOOD UREA NITROGEN 16 MG/DL (7-18); BUN/CREATININE RATIO 26; CALCIUM 8.6 MG/DL (8.5-10.1); CARBON DIOXIDE 24 MMOL/L (21-32); CHLORIDE 101 MMOL/L (98-107); CREATININE SERUM 0.62 MG/DL (0.60-1.30); GFR ESTIMATED > 60; GLUCOSE 156 MG/DL (70-105); POTASSIUM 3.8 MMOL/L (3.6-5.0); SODIUM 134 MMOL/L (135-145); TOTAL PROTEIN 5.7 GM/DL (6.4-8.2)
[2016-12-19] MEDS: RT-ALBUTEROL/IPRATROPIUM 3 ML (DUONEB) VIAL INH SCH ×5 (06:54→21:42)
--- NOTE | 2016-12-19 07:04 | Diagnostic Imaging Report ---
INDICATION: Chest discomfort and dyspnea PA and lateral views of the chest are obtained. Comparison is made to study of 11/20/2016. There has been an overall increase in abnormal density throughout the right lung with an upper lobe predominance. Left lung remains clear. Right anterior chest wall port is in stable position. No significant pleural fluid is identified. IMPRESSION: Increasing pneumonitis and/or atypical pneumonia in the right lung. Dictated by: Dictated on workstation # [id number]
[2016-12-19] MEDS: ACETAMINOPHEN 325 MG TABLET/CAPLET (TYLENOL) PO PRN (08:30)
[2016-12-19] MEDS ORDERED: CYCL10TA9 PO (11:11)
[2016-12-19] MEDS ORDERED: CA C1TAB75 PO (11:11)
[2016-12-19] MEDS ORDERED: FLUT1AER IH (11:11)
[2016-12-19] MEDS ORDERED: HYDR-3812 PO (11:11)
[2016-12-19] MEDS ORDERED: DOCU-143 PO (11:12)
[2016-12-19] MEDS ORDERED: CEFEPIME 2 GM/NS 50 ML IVPB IV SCH ×2 (12:00)
[2016-12-19] MEDS: CATHETER FLUSH 10 ML SYR IV SCH ×2 (13:06→22:10)
[2016-12-19] MEDS ORDERED: RT-ALBUTEROL HFA (VENTOLIN) PER PUFF IH PRN (14:45)
--- NOTE | 2016-12-19 14:53 | History & Physical-Hospitalist ---
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 She he subsequently went combination chemotherapy and radiation therapy. She was to take 3 additional courses of chemotherapy. She had been feeling sluggish because of her illness and treatment. Yesterday she noted fever to 102+, diaphoresis and increased cough and shortness of breath. Chest x-ray last night showed increasing pneumonitis or pneumonia in the right lung and she was admitted. Source: patient Exam Limitations: no limitations Date Seen 12/19/16 Time Seen by Provider: 14:48 Attending Physician Lauren Bermeo PCP No,Local Physician Referring Physician Date of Admission Dec 19, 2016 at 01:00 Home Medications & Allergies Home Medications Reviewed patient Home Medication Reconciliation Form Allergies Allergies Coded Allergies clindamycin (Verified Allergy, Unknown, 04/01/07) rofecoxib (Verified Allergy, Unknown, PT CAN TAKE MOTRIN, 04/01/07) Past Fgwqhjo-Efclaa-Zfivep Hx Patient Social History Alcohol Use: Denies Use Recreational Drug Use: No Smoking Status: Current Everyday Smoker Type Used: Cigarettes Physical Abuse Screen: No Sexual Abuse: No Recent Foreign Travel: No Contact w/other who traveled: No Recent Hopitalizations: No Recent Infectious Disease Expo: No Immunizations Up To Date Tetanus Booster (TDap): Unknown Date of Pneumonia Vaccine: Jun 21, 2016 Date of Influenza Vaccine: Feb 14, 2016 Seasonal Allergies Seasonal Allergies: No Surgeries Yes (FACIAL SX x3, SPLEENECTOMY, COLON RESECTION, A&P VAGINAL REPAIR) Adenoidectomy, Appendectomy, Gallbladder, Hysterectomy, Tonsillectomy Respiratory Yes (PNEUMONIA HX) Cardiovascular Yes High Cholesterol, Hypertension Neurological 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 Genitourinary Yes (STRESS INCONT) Gastrointestinal Yes (HX C-DIFF WITH CLINDAMYCIN) Musculoskeletal No Endocrine History of Endocrine Disorders: No HEENT Loss of Vision: Bilateral Hearing Impairment: Denies Cancer Yes (ADENOCARCINOMA MIDDLE LOBE RT LUNG) Lung Psychosocial History of Psychiatric Problem: Yes Behavioral Health Disorders: Depression Integumentary 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) Blood Transfusions History of Blood Disorders: No Adverse Reaction to a Blood Tr: No (HAD BLOOD WITHOUT REACTION) Review of Systems Constitutional: see HPI EENTM: no symptoms reported Respiratory: cough, phlegm, short of breath Cardiovascular: no symptoms reported Gastrointestinal: loss of appetite, nausea Genitourinary: no symptoms reported : No Musculoskeletal: no symptoms reported Skin: no symptoms reported Psychiatric/Neurological: No Symptoms Reported Physical Exam Physical Exam Vital Signs Vital Sign - Last 12Hours 12/18/16 12/18/16 22:08 23:00 Temp 99.2 Pulse 108 Resp 22 B/P (MAP) 156/79 Pulse Ox 93 O2 Delivery Room Air O2 Flow Rate 2.00 Capillary Refill : Less Than 3 Seconds General Appearance: Other (chemotherapy-related alopecia) Eyes: Bilateral Eye Normal Inspection HEENT: Normal ENT Inspection Neck: Normal Inspection Respiratory: Decreased Breath Sounds Cardiovascular: Regular Rate, Rhythm Gastrointestinal: Abnormal Bowel Sounds (decreased ) Extremity: Normal Capillary Refill, Normal Inspection, Normal Range of Motion, Non Tender, No Calf Tenderness, No Pedal Edema Neurologic/Psychiatric: Alert, Oriented x3, No Motor/Sensory Deficits, Normal Mood/Affect Skin: Normal Color, Warm/Dry Lymphatic: No Adenopathy Results Results/Procedures Lab Laboratory Tests 12/18/16 22:40 12/19/16 05:20 Assessment/Plan Admission Diagnosis Adenocarcinoma of the right lung. 2.pneumonitis/pneumonia right lung. 3.COPD Assessment and Plan Await cultures. Empiric antibiotic. Clinical Quality Measures DVT/VTE Risk/Contraindication: Risk Factor Score Per Nursin RFS Level Per Nursing on Admit: 4+=Very High NATHALIE PATRICIA MD Dec 19, 2016 14:53
[2016-12-19] MEDS ORDERED: HYDROcodone/APAP 5 MG/325 MG (LORTAB) TAB PO PRN (15:45)
--- NOTE | 2016-12-19 16:06 | Clinic Account Progress/Dx ---
Clinic Account Progress/Dx DIAGNOSIS: Date Seen by Provider: Dec 19, 2016 Time Seen by Provider: 16:03 Diagnosis S: Called by RN about increased HR. Patient feeling poorly. EKG ordered and showed a-fib with RVR. Went to bedside and patient alert and awake. Reports heart racing. Denies history of a-fib. No respiratory distress. O: Gen: NAD, pleasant, lying in bed Resp: No distress, rhonchi bilaterally Card: irregularly irregular rhythm, tachycardiac no murmurs Abd: soft nontender, normal BS Neuro: Alert and oriented, normal speech A/P Atrial Fibrillation with RVR - Will transfer to ICU and start on cardizem gtt (SBP low 100s so will avoid bolus) - Will consult cardiology - New onset, could potentially by cardioverted - Echo ordered, CXR order, adding TSH and Mag to lab - Will start therapeutic lovenox for anticoagulation ([id number] of 3) 32minutes critical care time spent caring for the patient and directing management. GILLES RICHARDSON MD Dec 19, 2016 16:06
[2016-12-19] MEDS: ONDANSETRON 4 MG/2 ML (SDV) Z0FRAN IVP PRN (16:28)
[2016-12-19] MEDS: predniSONE 20 MG TAB PO SCH (16:30)
[2016-12-19] MEDS: BENZONATATE 100 MG (TESSALON) CAPSULE PO SCH ×2 (16:30→22:09)
[2016-12-19] MEDS ORDERED: DILTIAZEM 120 MG (CARDIZEM CD) CAP PO ONE (16:53)
[2016-12-19 16:55] LABS: MAGNESIUM 1.6 MG/DL (1.8-2.4)
[2016-12-19] MEDS: DILTIAZEM 120 MG (CARDIZEM CD) CAP PO SCH (17:01)
--- NOTE | 2016-12-19 17:02 | Diagnostic Imaging Report ---
EXAM: CHEST 1 VIEW, AP/PA ONLY. INDICATION: History of lung cancer. Shortness of breath. Atrial fibrillation. COMPARISON: Chest radiographs 12/18/2016. FINDINGS: Interval progression of the airspace opacities in the right upper lobe and right lung base. No definite pleural effusion or pneumothorax. Right IJ tunneled port CVC tip upper SVC. Normal heart size and pulmonary vascularity. No acute osseous findings. IMPRESSION: Interval progression of the airspace opacities in the right upper lobe and right lung base. Dictated by: Dictated on workstation # [id number]
[2016-12-19] MEDS: IBUPROFEN TABLET 200 MG TAB PO SCH (17:10)
[2016-12-19 17:21] LABS: THYROID STIMULATING HORMONE 3.23 UIU/ML (0.35-4.94)
[2016-12-19] MEDS: ENOXAPARIN 80 MG/0.8 ML (LOVENOX) SYR SC SCH (17:39)
[2016-12-19] MEDS: MAGNESIUM 1 GM/100 ML IVPB 100 ML IV SCH ×2 (18:51→20:29)
[2016-12-19] MEDS ORDERED: VANCOMYCIN INJECTION 1,000 MG in NS (IVPB) 250 ML IV SCH (19:15)
[2016-12-19] MEDS ORDERED: VANCOMYCIN 1250 MG/NS 250 ML IVPB IV NR ×2 (19:30)
[2016-12-19] MEDS ORDERED: VANCOMYCIN 500 MG/VIAL IV ONE (20:18)
[2016-12-19] MEDS ORDERED: VANCOMYCIN 750 MG/VIAL IV ONE (20:18)
[2016-12-19] MEDS ORDERED: cefTRIAXone INJECTION 1,000 MG in NS (IVPB) 50 ML IV SCH (21:00)
[2016-12-19] MEDS: LEVOFLOXACIN 750 MG/D5W 150 ML PRE-MIX IV SCH (22:09)
[2016-12-19] MEDS: CYCLOBENZAPRINE 10 MG (FLEXERIL) TAB PO SCH (22:10)
[2016-12-19] MEDS: AMITRIPTYLINE 50 MG (ELAVIL) TAB PO SCH (22:25)
[2016-12-20] VITALS (20 sets, daily range): BP systolic 94–144; BP diastolic 46–98
[2016-12-20] MEDS: morphine INJ 4 MG/ML 1 ML (VIAL/SYRINGE) IV PRN ×2 (00:19→04:23)
[2016-12-20] MEDS: RT-ALBUTEROL/IPRATROPIUM 3 ML (DUONEB) VIAL INH SCH ×6 (02:04→22:34)
--- NOTE | 2016-12-20 02:14 | CONSULTATION REPORT ---
DATE OF SERVICE: 12/19/2016 The patient is admitted to ICU bed 7. REFERRING PHYSICIAN: Tyrese Morrison MD. IMPRESSION: 1. Fever and right lung pneumonia. 2. Non-small cell lung cancer adenocarcinoma subtype stage III, status post combined chemoradiation followed by adjuvant chemotherapy with carboplatinum and paclitaxel regimen on a weekly basis. 3. Diagnosis of radiation pneumonitis a month ago, status post treatment with prednisone 40 mg daily x2 weeks followed by 30 mg daily x2 weeks, currently on 20 mg daily. 4. 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 5. New onset atrial fibrillation with rapid ventricular response, currently on Cardizem with controlled rate. RECOMMENDATIONS: 1. I agree with monitoring the patient in ICU and management of atrial fibrillation as your doing. 2. With regards to the pneumonia and fever, we would recommend adding vancomycin and Rocephin to the regimen and replacing cefepime because of her splenectomy and high risk for Strep pneumoniae. 3. I will hold further chemotherapy for a non-small cell lung cancer at this point until she has recovered from the infectious etiology. 4. Continue prednisone 20 mg daily as treatment for radiation pneumonitis. 5. We will follow patient with you. BRIEF HISTORY: The patient is a 66-year-old female with a stage III non-small lung cancer, adenocarcinoma subtype diagnosed in early 2016. She had a mediastinal lymphadenopathy as well as severe COPD and was not a surgical candidate. Because of this combined chemoradiation using the low dose carboplatinum and paclitaxel regimen was completed. The patient tolerated this well. Following this she was started on adjuvant chemotherapy with the same regimen and has completed 2 cycles and is currently on third cycle. She developed radiation pneumonitis with increasing shortness of breath and lung infiltrates within the radiation field. After consultation with Dr. Say Miner from radiation oncology, she was started on prednisone 40 mg daily for two weeks followed by 30 mg daily for two weeks and is currently on 20 mg daily. She was feeling better and her respirations have had improved. Approximately, 3 days ago she started developing pleuritic right-sided chest pain and yesterday developed fever to more than 102 degree Fahrenheit at home and came to the emergency room. She was noted to have a new right lung infiltrates in the upper and lower lobes and was admitted to the hospital for further management and antibiotic therapy. PAST MEDICAL HISTORY: Significant for lung cancer as mentioned above and treated as listed above. 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 History of hypertension for 10 years and is on treatment. Hypercholesterolemia for 5 years and on treatment. PRIOR SURGERIES: Include 3 facial surgeries for hemangioma in the 1960s. Tonsillectomy and adenoidectomy in 1964. Vaginal hysterectomy in 1979 because of bleeding. Cholecystectomy in 1981. Abdominal perineal repair and bladder tie up in 2006. A perforated diverticula requiring emergency descending and sigmoid colectomy in March 2007. Two days later she required an emergency splenectomy and appendectomy for splenic laceration and bleeding. SOCIAL HISTORY: The patient is and lives alone [place], [place]. She has 3 children, 1 daughter and 2 sons ranging in age from 37 through 46 years. A son lives in [place], [place] and another son in [place], [place]. Daughter lives in [place], but is estranged from the patient with no contact. 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 She has more than 100 pack year history of tobacco use and was smoking two packs of cigarettes a day prior to diagnosis. Denied any significant alcohol or other recreational drug use. FAMILY HISTORY: Significant for both parents with nonmelanoma skin cancer. Maternal grandmother with questionable primary brain cancer. Paternal aunt with colon cancer diagnosed at the age of 55 years. No other malignancies in the family that the patient knows of. PHYSICAL EXAMINATION: GENERAL: Today, showed an elderly female, weak appearing, awake and oriented and in mild discomfort because of the right-sided pleuritic chest pain. VITAL SIGNS: Temperature was 99.4 with a Tmax of 102 degree Fahrenheit at the time of admission. Pulse rate 109, respiratory rate 24, blood pressure 111/53, and oxygen saturation of 94% on room air. HEENT: Normocephalic with alopecia, extraocular muscles intact, evidence of right-sided hemangiomas. Oral mucosa moist. NECK: Supple with no JVD. No cervical, supraclavicular or axillary lymphadenopathy palpable. CHEST: Symmetrical. LUNGS: With diminished breath sounds bilaterally. A few rhonchi heard on the right lung kay without wheezes. CARDIOVASCULAR: Irregular and tachycardic with no murmurs heard. ABDOMEN: Obese, soft, nontender with no hepatosplenomegaly or other masses palpable. EXTREMITIES: Showed no edema. NEUROLOGIC: Grossly intact without focal motor deficits. Review her lab work. A CBC done today showed WBC 9.3, hemoglobin 10.5 and platelet count of 385,000 with neutrophil count of 7.8. Chemistry panel showed sodium level of 134 with rest of the electrolytes normal. BUN was 16 and creatinine 0.62 with a GFR more than 60 mL per minute and fasting glucose was 156. Liver function studies were within normal limits. Lactic acid level drawn at the emergency room was normal at 1.17. Chest x-ray done at the emergency room showed overall increase in abdominal density throughout the right lung with upper lobe predominance. Left lung was clear. Right anterior chest was port in stable position. No significant pleural fluid identified. A repeat chest x-ray done today morning showed interval progression of airspace opacities in the right upper lobe and right lung base. Thank you for allowing me to participate in this patient's care. I will follow the patient with you and make appropriate recommendations. Job ID: [id number] DocumentID: [id number] Dictated Date: 12/19/2016 19:06:35 Supervisor Purification Date: 12/20/2016 02:13:42 Dictated By: SAL SCHWARZ MD
[2016-12-20] MEDS: ENOXAPARIN 80 MG/0.8 ML (LOVENOX) SYR SC SCH ×2 (04:23→17:12)
[2016-12-20 04:26] LABS: BASOPHILS % (AUTO) 0 % (0-10); EOSINOPHILS % (AUTO) 0 % (0-10); LYMPHOCYTES # (AUTO) 0.4 X 10^3 (1.0-4.0); LYMPHOCYTES % (AUTO) 4 % (12-44); MEAN CORPUSCULAR HEMOGLOBIN 31 PG (25-34); MEAN CORPUSCULAR HGB CONC 33 G/DL (32-36); MEAN CORPUSCULAR VOLUME 93 FL (80-99); MEAN PLATELET VOLUME 8.7 FL (7.4-10.4); MONOCYTES # (AUTO) 0.9 X 10^3 (0.0-1.0); MONOCYTES % (AUTO) 8 % (0-12); NEUTROPHILS # (AUTO) 9.4 X 10^3 (1.8-7.8); NEUTROPHILS % (AUTO) 88 % (42-75); PLATELET COUNT 339 10^3/uL (130-400); RED BLOOD COUNT 3.25 10^6/uL (4.35-5.85); RED CELL DISTRIBUTION WIDTH 17.5 % (10.0-14.5); WHITE BLOOD COUNT 10.8 10^3/uL (4.3-11.0)
[2016-12-20 04:45] LABS: ANION GAP 12 MMOL/L (5-14); BLOOD UREA NITROGEN 18 MG/DL (7-18); BUN/CREATININE RATIO 25; CALCIUM 8.1 MG/DL (8.5-10.1); CARBON DIOXIDE 21 MMOL/L (21-32); CHLORIDE 97 MMOL/L (98-107); CREATININE SERUM 0.71 MG/DL (0.60-1.30); GFR ESTIMATED > 60; GLUCOSE 154 MG/DL (70-105); MAGNESIUM 2.1 MG/DL (1.8-2.4); POTASSIUM 3.9 MMOL/L (3.6-5.0); SODIUM 130 MMOL/L (135-145)
[2016-12-20] MEDS: ONDANSETRON 4 MG/2 ML (SDV) Z0FRAN IVP PRN (06:30)
[2016-12-20] MEDS: KCL 20 MEQ TAB (K-DUR) PO SCH (06:30)
[2016-12-20] MEDS: CATHETER FLUSH 10 ML SYR IV SCH ×3 (06:30→19:59)
[2016-12-20] MEDS: MAGNESIUM 1 GM/100 ML IVPB 100 ML IV SCH (06:30)
[2016-12-20] MEDS: POTASSIUM CL 10MEQ/50ML IVPB 50 ML IV SCH (06:31)
[2016-12-20] MEDS: DILTIAZEM DRIP 100 MG in SODIUM CHLORIDE (ADD-VANTAGE) 100 ML IV SCH ×2 (07:59→12:15)
--- NOTE | 2016-12-20 08:27 | ED Respiratory ---
General Chief Complaint: Respiratory Problems Stated Complaint: [id number]-LCC-JHAR CANCER ON CHEMO Nursing Triage Note: Pt ambulatory to ED reporting difficulty with right lung pain. Can not take deep breathe for coughing spells. Pt on treatment for right lung CA and has completed radiation. Chemo scheduled for tomorrow. Source: patient History of Present Illness Time seen by provider: 22:25 Initial Comments PT ARRIVES VIA POV FROM HOME C/O RIGHT SIDED CHEST PAIN WITH BREATHING FOR 3-4 DAYS--THINKS SHE HAS PNEUMONIA PT HAS CHRONIC COUGH, BUT HAS BEEN NON-PRODUCTIVE AND HAS ACTUALLY HAD A DECREASED COUGH THE LAST FEW DAYS PT WAS DX WITH LUNG CANCER 06/06/16 ( METS TO STERNUM ) AND HAS COMPLETED RADIATION TREATMENT AND IS NOW GETTING CHEMO ( 3 WEEKS ON, 1 WEEK OFF) --NEXT ROUND IS TO START TOMORROW HAS HAD TEMP OF 101 TONIGHT--TOOK TYLENOL AND HYDROCODONE HAS BEEN SHORT OF BREATH, BUT NO WHEEZING PT HAS USED REGULAR BREO INHALER THIS MORNING AND PROAIR INHALER X 1 TODAY-- AROUND 2030 TONIGHT HAS COPD, BUT IS NOT ON HOME O2. PT CONTINUES TO SMOKE AT LEAST 2 PPD NO SWELLING IN LEGS/ FEET OR PAIN IN CALVES. PT WANTING MORPHINE SOON SHE ARRIVES. PCP: FT. KENDELL VELÁZQUEZ ONCOLOGIST: DR. SCHWARZ Allergies and Home Medications Allergies Coded Allergies: clindamycin (Verified Allergy, Unknown, 04/01/07) rofecoxib (Verified Allergy, Unknown, PT CAN TAKE MOTRIN, 04/01/07) Home Medications Albuterol Sulfate 6.7 Gm Hfa.aer.ad, 2 PUFF IH Q6H PRN for SHORTNESS OF BREATH, (Reported) Amitriptyline HCl 50 Mg Tablet, 50 MG PO HS, (Reported) Ascorbate Calcium/Bioflavonoid 1 Each Tablet, 1 TAB PO DAILY, (Reported) Ca Carbonate/Vitamin D3/Vit K 1 Each Tab.chew, 1 TAB.CHEW PO BID, (Reported) Cyclobenzaprine HCl 10 Mg Tablet, 5 MG PO HS, (Reported) TAKES 1/2 (10MG) TABLET Docusate Sodium 100 Mg Capsule, 100 MG PO DAILY PRN for CONSTIPATION-1ST LINE, ( Reported) Fluticasone/Vilanterol 1 Each Blst.w.dev, 1 PUFF IH DAILY, (Reported) Hydrocodone/Acetaminophen 1 Each Tablet, 1-2 TAB PO Q6H PRN for PAIN-MODERATE, ( Reported) Ibuprofen 200 Mg Tablet, 800 MG PO BID, (Reported) TAKES 4 (200MG) TABLETS Multivitamin/Iron/Folic Acid 1 Each Tablet, 1 TAB PO DAILY, (Reported) [place] 3 Polyunsat Fatty Acids 1,000 Mg Cap, 1,000 MG PO DAILY, (Reported) Pravastatin Sodium 40 Mg Tablet, 40 MG PO HS, (Reported) Ramipril 2.5 Mg Capsule, 2.5 MG PO DAILY, (Reported) Constitutional: see HPI, fever EENTM: no symptoms reported Respiratory: see HPI, cough, short of breath, No wheezing Cardiovascular: see HPI, chest pain, No edema, No palpitations, No syncope Gastrointestinal: no symptoms reported Genitourinary: no symptoms reported : No Musculoskeletal: see HPI Skin: no symptoms reported Psychiatric/Neurological: No Symptoms Reported Past Zsdfqon-Fqminy-Kwgxjh Hx Patient Social History Alcohol Use: Denies Use Recreational Drug Use: No Smoking Status: Current Everyday Smoker (2 PPD) Type Used: Cigarettes Recent Foreign Travel: No Contact w/Someone Who Travel: No Recent Infectious Disease Expo: No Recent Hopitalizations: No Immunizations Up To Date Tetanus Booster (TDap): Unknown Date of Pneumonia Vaccine: Jun 21, 2016 Date of Influenza Vaccine: Feb 14, 2016 Seasonal Allergies Seasonal Allergies: No Surgeries History of Surgeries: Yes (FACIAL SX x3 FOR HEMANGIOMA; LAMINECTOMY; SPLEENECTOMY FOR SPLENIC RUPTURE 04/2007, COLON RESECTION FOR DIVERTICULITIS WITH PERFORATION 2006, A&P VAGINAL REPAIR; COLONOSCOPY) Surgeries: Abdominal, Adenoidectomy, Appendectomy, Bowel Surgery, Gallbladder, Hysterectomy, Tonsillectomy Respiratory History of Respiratory Disorde: Yes (LUNG CANCER WITH METS TO STERNUM DX ) Respiratory Disorders: Pneumonia, COPD, Emphysema Cardiovascular History of Cardiac Disorders: Yes Cardiac Disorders: High Cholesterol, Hypertension Neurological History of Neurological Disord: No 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 ) HEENT: PERRL/EOMI, other (HEMANGIOMA RIGHT FACE) Neck: normal inspection Respiratory: no respiratory distress, no accessory muscle use, decreased breath sounds (LUNG SOUNDS DIMINISHED ON RIGHT, AND SLIGHTLY COARSE), No accessory muscle use Cardiovascular: regular rate, rhythm, no murmur Gastrointestinal: non tender, soft Extremities: normal inspection, no pedal edema, normal capillary refill Neurologic/Psychiatric: foamite mixer II-XII nml as tested, no motor/sensory deficits, alert, normal mood/affect, oriented x 3 Skin: normal color, warm/dry Focused Exam Evaluation Lactate Level Laboratory Tests 12/18/16 22:40: Lactic Acid Level 1.17 Lactic Acid Level Laboratory Tests Test 12/18/16 22:40 Lactic Acid Level 1.17 MMOL/L (0.50-2.00) Progress/Results/Core Measures Results/Orders Lab Results Laboratory Tests Test 12/18/16 22:40 Range/Units White Blood Count 9.2 4.3-11.0 10^3/uL Red Blood Count 3.33 L 4.35-5.85 10^6/uL Hemoglobin 10.3 L 11.5-16.0 G/DL Hematocrit 31 L 35-52 % Mean Corpuscular Volume 94 80-99 FL Mean Corpuscular Hemoglobin 31 25-34 PG Mean Corpuscular Hemoglobin Concent 33 32-36 G/DL Red Cell Distribution Width 18.0 H 10.0-14.5 % Platelet Count 406 H 130-400 10^3/uL Mean Platelet Volume 9.3 7.4-10.4 FL Neutrophils (%) (Auto) 80 H 42-75 % Lymphocytes (%) (Auto) 10 L 12-44 % Monocytes (%) (Auto) 9 0-12 % Eosinophils (%) (Auto) 1 0-10 % Basophils (%) (Auto) 0 0-10 % Neutrophils # (Auto) 7.4 1.8-7.8 X 10^3 Lymphocytes # (Auto) 0.9 L 1.0-4.0 X 10^3 Monocytes # (Auto) 0.8 0.0-1.0 X 10^3 Eosinophils # (Auto) 0.1 0.0-0.3 10^3/uL Basophils # (Auto) 0.0 0.0-0.1 10^3/uL Prothrombin Time 12.9 12.2-14.7 SEC INR Comment 1.0 0.8-1.4 Activated Partial Thromboplast Time 28 24-35 SEC Sodium Level 133 L 135-145 MMOL/L Potassium Level 3.7 3.6-5.0 MMOL/L Chloride Level 100 98-107 MMOL/L Carbon Dioxide Level 24 21-32 MMOL/L Anion Gap 9 5-14 MMOL/L Blood Urea Nitrogen 18 7-18 MG/DL Creatinine 0.66 0.60-1.30 MG/DL Estimat Glomerular Filtration Rate > 60 BUN/Creatinine Ratio 27 Glucose Level 140 H 70-105 MG/DL Lactic Acid Level 1.17 0.50-2.00 MMOL/L Calcium Level 9.0 8.5-10.1 MG/DL Total Bilirubin 0.4 0.1-1.0 MG/DL Aspartate Amino Transf (AST/SGOT) 9 5-34 U/L Alanine Aminotransferase (ALT/SGPT) 19 0-55 U/L Alkaline Phosphatase 67 40-136 U/L B-Type Natriuretic Peptide 37.2 <100.0 PG/ML Total Protein 6.0 L 6.4-8.2 GM/DL Albumin 3.4 3.2-4.5 GM/DL Micro Results Microbiology 12/18/16 Blood Culture - Preliminary, Resulted No growth 12/18/16 Blood Culture - Preliminary, Resulted No growth My Orders Orders - EARLINE CHAO DO Saline Lock/Iv-Start (12/18/16 22:34) Monitor-Rhythm Ecg Trace Only (12/18/16 22:34) BNP (12/18/16 22:34) Cbc With Automated Diff (12/18/16 22:34) Comprehensive Metabolic Panel (12/18/16 22:34) Lactic Acid Analyzer (12/18/16 22:34) Protime With Inr (12/18/16 22:34) Partial Thromboplastin Time (12/18/16 22:34) Blood Culture (12/18/16 22:34) Morphine Injection (Morphine Injection (12/18/16 22:34) O2 (12/18/16 22:59) Chest Pa/Lat (2 View) (12/18/16 22:59) Levofloxacin 750 Mg/150 Ml Iv (Levaquin (12/19/16 00:00) Vital Signs/I&O Vital Sign - Last 12Hours 12/18/16 12/18/16 22:08 23:00 Temp 99.2 Pulse 108 Resp 22 B/P (MAP) 156/79 Pulse Ox 93 92 O2 Delivery Room Air Nasal Cannula O2 Flow Rate 2.00 Blood Pressure Mean: 67 Progress Note : Progress Note O2 SATS 91-92% ON ROOM AIR--UP TO MID TO UPPER 90'S ON O2 AT 2L/NC PAIN IMPROVED WITH MORPHINE Diagnostic Imaging Comments CXR--RIGHT SIDED INFILTRATES-VIJAY RLL, PENDING RADIOLOGIST REVIEW Reviewed: Reviewed by Me Departure Communication (Admissions) Progress Notes [id number]--ATTEMPTING TO CONTACT DR. SCHWARZ, MESSAGE ON CELL. NO ANSWER ON HOME PHONE [phone]--PAGED/ SPOKE WITH DR. SCHWARZ. ACCEPTS PT FOR ADMIT. ORDERS FOR ANTIBIOTICS NOTED. 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 Referrals: NO,LOCAL PHYSICIAN (PCP) Primary Care Physician EARLINE CHAO DO Dec 20, 2016 08:27
--- NOTE | 2016-12-20 08:29 | Pulmonary Consultation ---
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 She has underwent chemo/radiation presented secondary to feeling worsening fatigue and SOB and was found to have a fever of 102. CXR shows worsening pneumonia. SHe was admitted to ICU for close observation. I am consulted for Pulm/ICU management. Allergies and Home Medications Allergies Coded Allergies: clindamycin (Verified Allergy, Unknown, 04/01/07) rofecoxib (Verified Allergy, Unknown, PT CAN TAKE MOTRIN, 04/01/07) Home Medications Albuterol Sulfate 6.7 Gm Hfa.aer.ad, 2 PUFF IH Q6H PRN for SHORTNESS OF BREATH, (Reported) Amitriptyline HCl 50 Mg Tablet, 50 MG PO HS, (Reported) Ascorbate Calcium/Bioflavonoid 1 Each Tablet, 1 TAB PO DAILY, (Reported) Ca Carbonate/Vitamin D3/Vit K 1 Each Tab.chew, 1 TAB.CHEW PO BID, (Reported) Cyclobenzaprine HCl 10 Mg Tablet, 5 MG PO HS, (Reported) TAKES 1/2 (10MG) TABLET Docusate Sodium 100 Mg Capsule, 100 MG PO DAILY PRN for CONSTIPATION-1ST LINE, ( Reported) Fluticasone/Vilanterol 1 Each Blst.w.dev, 1 PUFF IH DAILY, (Reported) Hydrocodone/Acetaminophen 1 Each Tablet, 1-2 TAB PO Q6H PRN for PAIN-MODERATE, ( Reported) Ibuprofen 200 Mg Tablet, 800 MG PO BID, (Reported) TAKES 4 (200MG) TABLETS Multivitamin/Iron/Folic Acid 1 Each Tablet, 1 TAB PO DAILY, (Reported) [place] 3 Polyunsat Fatty Acids 1,000 Mg Cap, 1,000 MG PO DAILY, (Reported) Pravastatin Sodium 40 Mg Tablet, 40 MG PO HS, (Reported) Ramipril 2.5 Mg Capsule, 2.5 MG PO DAILY, (Reported) Past Talcciv-Krrpeu-Saeeqv Hx Patient Social History Alcohol Use: Denies Use Recreational Drug Use: No Smoking Status: Current Everyday Smoker Type Used: Cigarettes Recent Foreign Travel: No Contact w/Someone Who Travel: No Recent Infectious Disease Expo: No Recent Hopitalizations: No Immunizations Up To Date Tetanus Booster (TDap): Unknown Date of Pneumonia Vaccine: Jun 21, 2016 Date of Influenza Vaccine: Feb 14, 2016 Seasonal Allergies Seasonal Allergies: No Surgeries History of Surgeries: Yes (FACIAL SX x3, SPLEENECTOMY, COLON RESECTION, A&P VAGINAL REPAIR) Surgeries: Adenoidectomy, Appendectomy, Gallbladder, Hysterectomy, Tonsillectomy Respiratory History of Respiratory Disorde: Yes (PNEUMONIA HX) Respiratory Disorders: Pneumonia, COPD, Emphysema Cardiovascular History of Cardiac Disorders: Yes Cardiac Disorders: High Cholesterol, Hypertension Neurological History of Neurological Disord: No 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 Genitourinary History of Genitourinary Disor: Yes (STRESS INCONT) Gastrointestinal History of Gastrointestinal Di: Yes (HX C-DIFF WITH CLINDAMYCIN) Musculoskeletal History of Musculoskeletal Dis: No Endocrine History of Endocrine Disorders: No HEENT Loss of Vision: Bilateral Hearing Impairment: Denies Cancer History of Cancer: Yes (ADENOCARCINOMA MIDDLE LOBE RT LUNG) Cancer: Lung Psychosocial History of Psychiatric Problem: Yes Behavioral Health Disorders: Depression Integumentary 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) Blood Transfusions History of Blood Disorders: No Adverse Reaction to a Blood Tr: No (HAD BLOOD WITHOUT REACTION) Review of Systems Time Seen by Provider: 09:25 Exam Exam Vital Signs Date Time Temp Pulse Resp B/P (MAP) Pulse Ox O2 Delivery O2 Flow Rate FiO2 12/20/16 07:56 98.0 12/20/16 07:00 105 12/20/16 06:00 93 16 103/50 98 Nasal Cannula 6.00 12/20/16 05:00 88 17 101/48 93 Nasal Cannula 6.00 12/20/16 04:00 98 23 102/52 93 Nasal Cannula 6.00 12/20/16 03:00 102 21 100/50 93 Nasal Cannula 6.00 12/20/16 02:30 Nasal Cannula 6.00 12/20/16 02:04 93 Nasal Cannula 4.00 12/20/16 02:00 99 25 99/46 92 Nasal Cannula 4.00 12/20/16 01:00 102 19 94/49 92 Nasal Cannula 4.00 12/20/16 01:00 102 12/20/16 00:30 Nasal Cannula 4.00 12/20/16 00:00 87 20 105/53 94 Nasal Cannula 8.00 12/19/16 23:00 84 19 92/55 94 Nasal Cannula 8.00 12/19/16 22:00 90 13 110/49 93 Nasal Cannula 8.00 12/19/16 22:00 Nasal Cannula 8.00 12/19/16 21:42 96 Nasal Cannula 4.00 12/19/16 21:00 Nasal Cannula 4.00 12/19/16 21:00 82 19 100/52 94 Nasal Cannula 4.00 12/19/16 20:00 88 17 100/55 93 Nasal Cannula 4.00 12/19/16 20:00 98.4 Nasal Cannula 4.00 12/19/16 19:00 112 14 125/59 97 Nasal Cannula 4.00 12/19/16 19:00 93 Nasal Cannula 4.00 12/19/16 19:00 112 12/19/16 18:00 106 20 101/48 94 Room Air 12/19/16 17:00 109 24 111/53 94 Room Air 12/19/16 16:25 116 12/19/16 12:04 99.4 111 18 106/69 93 Room Air 12/19/16 11:31 90 Nasal Cannula 4.00 12/19/16 09:00 Nasal Cannula 4.00 12/19/16 08:30 102.0 General Appearance: Mild Distress, Other (chemotherapy-related alopecia) HEENT: Normal ENT Inspection Neck: Normal Inspection Respiratory: Decreased Breath Sounds Cardiovascular: Regular Rate, Rhythm Capillary Refill: Less Than 3 Seconds Extremity: Normal Capillary Refill, Normal Inspection, Normal Range of Motion, Non Tender, No Calf Tenderness, No Pedal Edema Neurologic/Psychiatric: Alert, Oriented x3, No Motor/Sensory Deficits, Normal Mood/Affect Skin: Normal Color, Warm/Dry Lymphatic: No Adenopathy Results Lab Laboratory Tests 12/18/16 22:40 12/19/16 05:20 12/20/16 04:20 Assessment/Plan Assessment/Plan Pneumonia HCAP -broadspectrum abx with Rocephin , vanco, and levaquin Adenocarcinoma of lung stage III s/p chemoradiation followed by adjuvant chemotherapy -Oncology is following radiation pneumonitis dx 1 month ago -S/p tx with prednisone Afib RVR -cardiology following -Cardizem gtt Continue to monitor in ICU 255 Clinical Quality Measures DVT/VTE Risk/Contraindication: Risk Factor Score Per Nursin RFS Level Per Nursing on Admit: 4+=Very High CELIA BARKSDALE DO Dec 20, 2016 08:29
[2016-12-20] MEDS ORDERED: PROMETHAZINE INJ 25 MG/ML (PHENERGAN) AMP ONE (08:33)
[2016-12-20] MEDS: PROMETHAZINE INJ 25 MG/ML (PHENERGAN) AMP IVP PRN ×3 (08:42→17:04)
[2016-12-20] MEDS: VANCOMYCIN 1 GM/NS 250 ML IVPB IV SCH ×4 (08:50→19:58)
[2016-12-20] MEDS ORDERED: CEFEPIME INJECTION 2,000 MG in NS (IVPB) 50 ML IV SCH (09:00)
--- NOTE | 2016-12-20 09:05 | Progress Note-Hospitalist ---
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 She he subsequently went combination chemotherapy and radiation therapy. She was to take 3 additional courses of chemotherapy. She had been feeling sluggish because of her illness and treatment. Yesterday she noted fever to 102+, diaphoresis and increased cough and shortness of breath. Chest x-ray last night showed increasing pneumonitis or pneumonia in the right lung and she was admitted. Subjective/Events-last exam She reports feeling poorly this morning due to nausea. She ultimately never needed cardizem gtt yesterday as rate improved and tolerated cardizem PO. She is now having intractable nausea withmultiple episodes of emesis despite Zofran use. Objective Exam Vital Signs Vital Sign - Last 12Hours 12/18/16 12/18/16 22:08 23:00 Temp 99.2 Pulse 108 Resp 22 B/P (MAP) 156/79 Pulse Ox 93 O2 Delivery Room Air O2 Flow Rate 2.00 Capillary Refill : Less Than 3 Seconds General Appearance: No Apparent Distress, WD/WN Respiratory: No Accessory Muscle Use, No Respiratory Distress, Rhonci (right sided) Cardiovascular: No JVD, No Murmur, Tachycardia Gastrointestinal: Normal Bowel Sounds, Non Tender, Soft Neurologic/Psychiatric: Alert, Oriented x3 Skin: Ecchymosis (on right side of face) Results/Procedures Lab Laboratory Tests 12/20/16 04:20 Assessment/Plan Assessment and Plan Assess & Plan/Chief Complaint CAP Diagnosis/Problems Diagnosis/Problems (1) Adenocarcinoma of lung Assessment & Plan: Follows with Dr. Bermeo, receives radiation and chemotherapy Holding chemo per Jean-Claude's recs (2) Atrial fibrillation Assessment & Plan: Was in a-fib with RVR yesterday, never necessitated cardizem gtt so will transfer out of ICU Cardiology consulted, appreciate recs Follow up ECHO TSH, K, and Mag normal Continue oral Cardizem Lovenox for anticoagulation (3) Intractable nausea and vomiting Status: Acute Assessment & Plan: Refractory to Zofran, will add phenergan Will continue IVF (4) Pneumonia involving right lung Status: Acute Assessment & Plan: Diagnosed with radiation pneumonitis recently (on steroids) On Ceftriaxone, Levaquin, Vanc Follows with Dr. Bermeo for oncology Continue on Prednisone (may need stress dosing if becomes hypotensive) (5) COPD (chronic obstructive pulmonary disease) Status: Chronic Assessment & Plan: No acute exacerbation GILLES RICHARDSON MD Dec 20, 2016 09:05
[2016-12-20] MEDS: DILTIAZEM 120 MG (CARDIZEM CD) CAP PO SCH (10:31)
[2016-12-20] MEDS: NICOTINE 14 MG (NICODERM) PATCH TD SCH (12:52)
[2016-12-20] MEDS: BENZONATATE 100 MG (TESSALON) CAPSULE PO SCH ×3 (12:55→20:34)
--- NOTE | 2016-12-20 13:18 | Consultation-Cardiology ---
HPI-Cardiology Cardiology Consultation: Date of Consultation 12/20/16 Date of Admission Attending Physician Lauren Bermeo Admitting Physician No,Local Physician Consulting Physician Ashley VICTORIA MD HPI: Time Seen by Provider: 13:15 Chief Complaint: Shortness of breath, not feeling well This is a 66-year-old lady with history of lung cancer with admission for pneumonia. She complains of shortness of breath and was found to have atrial fibrillation during her hospitalization. She was started on by mouth Cardizem. She converted to sinus rhythm. However she continues to feel unwell. Review of Systems-Cardiology Review of Systems Constitutional: malaise, tiredness Eyes: No As described under HPI, No no symptoms reported, No blindness, No blurred vision, No contact lenses, No drainage, No decreased acuity, No foreign body sensation, No glasses, No inflammation, No pain, No photophobia, No previous injury, No shadows, No tunnel vision, No other, No vision change Ears/Nose/Throat: No As described under HPI, No no symptoms reported, No chronic hearing loss, No epistaxis, No ear discharge, No ear pain, No loose teeth, No mouth pain, No mouth swelling, No nasal drainage, No nose pain, No recent hearing loss, No throat pain, No throat swelling, No ulcerations, No other Respiratory: shortness of breath Cardiovascular: irregular heart rate Gastrointestinal: No no symptoms reported, No As described under HPI, No abdomen distended, No abdominal pain, No blood streaked bowels, No constipation , No diarrhea, No difficulty swallowing, No nausea, No poor appetite, No poor fluid intake, No rectal bleeding, No vomiting, No other, No nausea/vomiting/ diarrhea, No stool coloration changes Genitourinary: No no symptoms reported, No As described under HPI, No burning, No dysuria, No discharge, No frequency, No flank pain, No hematuria, No incontinence, No pain, No urgency, No other, No urine frequency changes, No urine coloration changes : No Musculoskeletal: No no symptoms reported, No As describe under HPI, No back pain, No gout, No joint pain, No joint swelling, No muscle pain, No muscle stiffness, No neck pain, No other Skin: No no symptoms reported, No As described under HPI, No change in color, No change in hair/nails, No dryness, No lesions, No lumps, No rash, No other, No skin related problems, No ulcerations, No rash on exposed areas, No ulcerations on exposed areas Psychiatric/Neurological: No no symptoms reported, No As described under HPI, No anxiety, No depression, No emotional problems, No headache, No numbness, No pre-existing deficit, No seizure, No tingling, No tremors, No weakness, No other , No focal weakness, No syncope [id number] Hx Patient Social History Alcohol Use: Denies Use Recreational Drug Use: No Smoking Status: Current Everyday Smoker (2 PPD) Type Used: Cigarettes Recent Foreign Travel: No Recent Infectious Disease Expo: No Hospitalization with Isolation: Denies Physical Abuse Screen: No Sexual Abuse: No Immunizations Up To Date Tetanus Booster (TDap): Unknown Date of Pneumonia Vaccine: Jun 21, 2016 Date of Influenza Vaccine: Feb 14, 2016 Past Medical History PMH As described under Assessment. Allergies and Home Medications Allergies Coded Allergies: clindamycin (Verified Allergy, Unknown, 04/01/07) rofecoxib (Verified Allergy, Unknown, PT CAN TAKE MOTRIN, 04/01/07) Home Medications Albuterol Sulfate 6.7 Gm Hfa.aer.ad, 2 PUFF IH Q6H PRN for SHORTNESS OF BREATH, (Reported) Amitriptyline HCl 50 Mg Tablet, 50 MG PO HS, (Reported) Ascorbate Calcium/Bioflavonoid 1 Each Tablet, 1 TAB PO DAILY, (Reported) Ca Carbonate/Vitamin D3/Vit K 1 Each Tab.chew, 1 TAB.CHEW PO BID, (Reported) Cyclobenzaprine HCl 10 Mg Tablet, 5 MG PO HS, (Reported) TAKES 1/2 (10MG) TABLET Docusate Sodium 100 Mg Capsule, 100 MG PO DAILY PRN for CONSTIPATION-1ST LINE, ( Reported) Fluticasone/Vilanterol 1 Each Blst.w.dev, 1 PUFF IH DAILY, (Reported) Hydrocodone/Acetaminophen 1 Each Tablet, 1-2 TAB PO Q6H PRN for PAIN-MODERATE, ( Reported) Ibuprofen 200 Mg Tablet, 800 MG PO BID, (Reported) TAKES 4 (200MG) TABLETS Multivitamin/Iron/Folic Acid 1 Each Tablet, 1 TAB PO DAILY, (Reported) [place] 3 Polyunsat Fatty Acids 1,000 Mg Cap, 1,000 MG PO DAILY, (Reported) Pravastatin Sodium 40 Mg Tablet, 40 MG PO HS, (Reported) Ramipril 2.5 Mg Capsule, 2.5 MG PO DAILY, (Reported) Physical Exam-Cardiology Physical Exam Vital Signs/I&O Vital Sign - Last 12Hours 12/20/16 12/20/16 12/20/16 12/20/16 02:00 02:04 02:30 03:00 Pulse 99 102 Resp 25 21 B/P (MAP) 99/46 100/50 Pulse Ox 92 93 93 O2 Delivery Nasal Cannula Nasal Cannula Nasal Cannula Nasal Cannula O2 Flow Rate 4.00 4.00 6.00 6.00 12/20/16 12/20/16 12/20/16 12/20/16 04:00 05:00 06:00 07:00 Pulse 98 88 93 99 Resp 23 17 16 28 B/P (MAP) 102/52 101/48 103/50 144/56 Pulse Ox 93 93 98 98 O2 Delivery Nasal Cannula Nasal Cannula Nasal Cannula Nasal Cannula O2 Flow Rate 6.00 6.00 6.00 6.00 12/20/16 12/20/16 12/20/16 12/20/16 07:00 07:56 08:00 08:29 Temp 98.0 Pulse 105 104 Resp 21 B/P (MAP) 144/98 Pulse Ox 91 96 O2 Delivery Nasal Cannula Nasal Cannula O2 Flow Rate 3.00 4.00 12/20/16 12/20/16 12/20/16 12/20/16 09:00 09:00 10:00 11:00 Pulse 96 102 96 Resp 26 30 24 B/P (MAP) 111/59 116/59 132/61 Pulse Ox 93 97 95 O2 Delivery Nasal Cannula Nasal Cannula Nasal Cannula Nasal Cannula O2 Flow Rate 3.00 6.00 3.00 3.00 12/20/16 12:00 Temp 98.2 Capillary Refill : Less Than 3 Seconds Constitutional: apparent distress, other (looks unwell) HEENT: No PERRL, No normal ENT inspection, No TMs normal, No pharynx normal, No scleral icterus (R), No scleral icterus (L), No pale conjunctivae (R), No pale conjunctivae (L), No photophobia, No TM abnormal (R), No TM abnormal (L), No pharyngeal erythema, No tonsillar exudate, No other, No discharge, No EOMI, No hearing is well preserved, No hard of hearing, No oral hygience is good, No ulceration, No xanthelasmas are seen Neck: No non-tender, No full range of motion, No supple, No normal inspection, No carotid bruit, No limited range of motion, No lymphadenopathy (R), No lymphadenopathy (L), No tender lateral, No tender midline, No thyromegaly, No other, No carotid pulses are 2 + bilaterally, No with good upstrokes Respiratory: No accessory muscle use, No respiratory distress, No chest tender , No chest expansion is symmetric, No chest is bilaterally symmetric, No lungs clear to percussion, No lungs clear to auscultation, No crackles, No rhonchi, No rales, No stridor, No wheezing, No pleural rub, No other Cardiovascular: irregularly irregular, tachycardia, S1 and S2 Gastrointestinal: No tender, No soft, No round, No distended, No pulsatile mass , No organomegaly, No guarding, No rebound, No tenderness, No hernia, No mass, No audible bowel sounds, No abnormal bowel sounds, No abdominal bruits, No spleenomegaly, No other Rectal: deferred Extremities: No normal range of motion, No non-tender, No normal inspection, No pedal edema, No calf tenderness, No normal capillary refill, No pelvis stable , No calf tenderness, No inflammation, No pedal edema, No slow capillary refill , No swelling, No other, No abrasion, No clubbing, No cyanosis, No ecchymosis, No laceration, No no lower extremity edema bilateral, No significant edema, No tenderness, No wound Skin: No normal color, No warm/dry, No cyanosis, No cool, No diaphoresis, No damp, No ecchymosis, No jaundice, No mottled, No pallor, No rash, No tattoos/ piercings, No ulcerations, No rash on exposed areas, No ulcerations on exposed areas, No other Data Review Labs Laboratory Tests 12/20/16 04:20: White Blood Count 10.8, Red Blood Count 3.25L, Hemoglobin 9.9L, Hematocrit 30L, Mean Corpuscular Volume 93, Mean Corpuscular Hemoglobin 31, Mean Corpuscular Hemoglobin Concent 33, Red Cell Distribution Width 17.5H, Platelet Count 339, Mean Platelet Volume 8.7, Neutrophils (%) (Auto) 88H, Lymphocytes (%) (Auto) 4L , Monocytes (%) (Auto) 8, Eosinophils (%) (Auto) 0, Basophils (%) (Auto) 0, Neutrophils # (Auto) 9.4H, Lymphocytes # (Auto) 0.4L, Monocytes # (Auto) 0.9, Eosinophils # (Auto) 0.0, Basophils # (Auto) 0.0, Sodium Level 130L, Potassium Level 3.9, Chloride Level 97L, Carbon Dioxide Level 21, Anion Gap 12, Blood Urea Nitrogen 18, Creatinine 0.71, Estimat Glomerular Filtration Rate > 60, BUN/ Creatinine Ratio 25, Glucose Level 154H, Calcium Level 8.1L, Phosphorus Level 4.0, Magnesium Level 2.1 Microbiology 12/18/16 Blood Culture - Preliminary, Resulted No growth ECG Impression ECG Initial ECG Rhythm: Normal Sinus, PAC A/P-Cardiology Assessment/Admission Diagnosis Lung cancer, Pneumonia, Paroxysmal atrial fibrillation, Frequent PACs Plan Lung cancer: On chemotherapy. Pneumonia: Defer to primary service. Paroxysmal atrial fibrillation: Likely agree to lung cancer and pneumonia. Currently in sinus rhythm with frequent PACs. On examination the patient does not have any wheezing, therefore, I've recommended changing Cardizem to metoprolol 25 mg 3 times a day. Echocardiogram is recommended. Dr. Jay to take over my service from this afternoon. Thank you for your consultation. Please call me if you have any questions. Mateus Victoria MD, FACP, FACC, FSCAI, FHRS, CCDS Interventional Cardiology Cardiac Electrophysiology Vascular Medicine and Endovascular Interventions Clinical Quality Measures DVT/VTE Risk/Contraindication: Risk Factor Score Per Nursin RFS Level Per Nursing on Admit: 4+=Very High Ashley VICTORIA MD Dec 20, 2016 1:18 pm
--- NOTE | 2016-12-20 15:29 | Progress Note-Standard ---
Standard Progress Note Progress Notes/Assess & Plan Date Seen by Provider: Dec 20, 2016 Time Seen by Provider: 15:24 Progress/Assessment & Plan 66 year old female non-small cell lung cancer, status post combined chemoradiation. Currently on adjuvant chemotherapy with weekly carboplatinum paclitaxel regimen. Patient admitted with fever and right upper lobe infiltrates consistent with pneumonia. She was diagnosed with radiation pneumonitis in the right lower lobe approximately a month ago and was on treatment with weaning dose of prednisone. Currently she is on 20 mg by mouth daily. No further temperature spikes. Paroxysmal cough productive of scanty sputum. Complained of mild nausea and not eating or drinking today. History of splenectomy following laceration. Currently on broad-spectrum antibiotics with Rocephin, Levaquin and vancomycin. Exam today showed tongue coated and few whitish lesions suspicious for candidiasis. We will start her on Diflucan 100 mg IV daily. History of atrial fibrillation with rapid ventricular response , currently in sinus rhythm. Cardiology adjusting medications. Chemotherapy on hold. Recheck lab work tomorrow. Recheck chest x-ray tomorrow. SAL SCHWARZ Dec 20, 2016 15:29
[2016-12-20] MEDS: OMEGA 3 (FISH OIL) 1000 MG CAP PO SCH (15:41)
[2016-12-20] MEDS: IBUPROFEN TABLET 200 MG TAB PO SCH ×2 (15:41→17:05)
[2016-12-20] MEDS: RAMIPRIL 2.5 MG (ALTACE) CAP PO SCH (15:41)
[2016-12-20] MEDS: predniSONE 20 MG TAB PO SCH (15:41)
[2016-12-20] MEDS: FLUCONAZOLE 100 MG/50 ML 50 ML IV SCH (17:12)
[2016-12-20] MEDS: meTOprolol TARTRATE 25 MG (LOPRESSOR) TABLET PO SCH (20:34)
[2016-12-20] MEDS: CYCLOBENZAPRINE 10 MG (FLEXERIL) TAB PO SCH (20:34)
[2016-12-20] MEDS: AMITRIPTYLINE 50 MG (ELAVIL) TAB PO SCH (20:34)
[2016-12-20] MEDS: LEVOFLOXACIN 750 MG/D5W 150 ML PRE-MIX IV SCH (21:04)
[2016-12-20] MEDS: ACETAMINOPHEN 325 MG TABLET/CAPLET (TYLENOL) PO PRN (23:33)
[2016-12-21] VITALS (7 sets, daily range): BP systolic 94–175; BP diastolic 50–116
[2016-12-21] MEDS: PROMETHAZINE INJ 25 MG/ML (PHENERGAN) AMP IVP PRN (00:29)
[2016-12-21] MEDS: RT-ALBUTEROL/IPRATROPIUM 3 ML (DUONEB) VIAL INH SCH ×6 (01:54→22:03)
[2016-12-21] MEDS: CATHETER FLUSH 10 ML SYR IV SCH ×3 (02:13→19:27)
[2016-12-21] MEDS: morphine INJ 4 MG/ML 1 ML (VIAL/SYRINGE) IV PRN (02:13)
[2016-12-21] MEDS: KCL 20 MEQ TAB (K-DUR) PO SCH (05:07)
[2016-12-21] MEDS: POTASSIUM CL 10MEQ/50ML IVPB 50 ML IV SCH (05:07)
[2016-12-21] MEDS: MAGNESIUM 1 GM/100 ML IVPB 100 ML IV SCH (05:07)
[2016-12-21] MEDS: ENOXAPARIN 80 MG/0.8 ML (LOVENOX) SYR SC SCH ×2 (05:37→17:29)
[2016-12-21 06:58] LABS: BASOPHILS % (AUTO) 0 % (0-10); EOSINOPHILS % (AUTO) 0 % (0-10); LYMPHOCYTES # (AUTO) 0.8 X 10^3 (1.0-4.0); LYMPHOCYTES % (AUTO) 6 % (12-44); MEAN CORPUSCULAR HEMOGLOBIN 30 PG (25-34); MEAN CORPUSCULAR HGB CONC 32 G/DL (32-36); MEAN CORPUSCULAR VOLUME 93 FL (80-99); MEAN PLATELET VOLUME 8.7 FL (7.4-10.4); MONOCYTES # (AUTO) 0.9 X 10^3 (0.0-1.0); MONOCYTES % (AUTO) 7 % (0-12); NEUTROPHILS # (AUTO) 11.6 X 10^3 (1.8-7.8); NEUTROPHILS % (AUTO) 87 % (42-75); PLATELET COUNT 336 10^3/uL (130-400); RED BLOOD COUNT 2.88 10^6/uL (4.35-5.85); RED CELL DISTRIBUTION WIDTH 17.3 % (10.0-14.5); WHITE BLOOD COUNT 13.3 10^3/uL (4.3-11.0)
[2016-12-21] MEDS ORDERED: TROUGH ORDER-PHARMACY XX NR (07:00)
[2016-12-21 07:20] LABS: ALANINE AMINOTRANSFERASE 18 U/L (0-55); ALBUMIN 2.5 GM/DL (3.2-4.5); ANION GAP 9 MMOL/L (5-14); ASPARTATE AMINO TRANSFERASE 12 U/L (5-34); BILIRUBIN,TOTAL 0.5 MG/DL (0.1-1.0); BLOOD UREA NITROGEN 26 MG/DL (7-18); BUN/CREATININE RATIO 34; CALCIUM 8.4 MG/DL (8.5-10.1); CARBON DIOXIDE 24 MMOL/L (21-32); CHLORIDE 98 MMOL/L (98-107); CREATININE SERUM 0.76 MG/DL (0.60-1.30); GFR ESTIMATED > 60; GLUCOSE 155 MG/DL (70-105); POTASSIUM 4.1 MMOL/L (3.6-5.0); SODIUM 131 MMOL/L (135-145); TOTAL PROTEIN 5.1 GM/DL (6.4-8.2)
--- NOTE | 2016-12-21 07:56 | Diagnostic Imaging Report ---
EXAM: CHEST 1 VIEW, AP/PA ONLY INDICATION: Pneumonia. Lung cancer. COMPARISON: Chest radiograph 12/19/2016. FINDINGS: Increasing consolidation in the right upper lobe. Persistent bibasilar atelectasis or infiltrate. Normal heart size and pulmonary vascularity. No definite pleural effusion or pneumothorax. No acute osseous findings. Right IJ CVC tip upper SVC. IMPRESSION: Increasing consolidation in the right upper lobe. Stable bibasilar atelectasis and/or infiltrate. Dictated by: Dictated on workstation # [id number]
[2016-12-21] MEDS: NICOTINE 14 MG (NICODERM) PATCH TD SCH (08:06)
[2016-12-21] MEDS: OMEGA 3 (FISH OIL) 1000 MG CAP PO SCH (08:06)
[2016-12-21] MEDS: BENZONATATE 100 MG (TESSALON) CAPSULE PO SCH ×3 (08:06→20:00)
[2016-12-21] MEDS: VANCOMYCIN 1 GM/NS 250 ML IVPB IV SCH ×4 (08:06→19:27)
[2016-12-21] MEDS: meTOprolol TARTRATE 25 MG (LOPRESSOR) TABLET PO SCH ×3 (08:06→20:00)
[2016-12-21] MEDS: RAMIPRIL 2.5 MG (ALTACE) CAP PO SCH (08:06)
[2016-12-21] MEDS: IBUPROFEN TABLET 200 MG TAB PO SCH ×2 (08:14→17:28)
[2016-12-21] MEDS: predniSONE 20 MG TAB PO SCH (08:14)
--- NOTE | 2016-12-21 08:39 | Pulmonary Progress Note ---
Exam Exam Vital Signs Date Time Temp Pulse Resp B/P (MAP) Pulse Ox O2 Delivery O2 Flow Rate FiO2 12/21/16 03:37 97.7 77 18 94/61 92 High Flow N/C 6.00 12/21/16 01:54 92 Nasal Cannula 6.00 12/21/16 01:00 86 12/21/16 00:30 97.9 12/20/16 23:10 101.7 95 20 104/55 90 High Flow N/C 6.00 12/20/16 22:34 90 Nasal Cannula 6.00 12/20/16 20:40 99.7 98 24 98/63 91 High Flow N/C 6.00 12/20/16 20:00 High Flow N/C 6.00 12/20/16 19:00 122 12/20/16 18:44 91 Nasal Cannula 6.00 12/20/16 16:30 98.2 62 22 114/61 91 High Flow N/C 6.00 12/20/16 16:00 116 28 111/60 90 Nasal Cannula 6.00 12/20/16 16:00 98.6 Nasal Cannula 6.00 12/20/16 15:27 91 Nasal Cannula 6.00 12/20/16 15:00 110 22 136/54 94 Nasal Cannula 6.00 12/20/16 14:00 115 27 141/58 93 Nasal Cannula 6.00 12/20/16 13:00 114 12/20/16 13:00 114 20 129/78 93 Nasal Cannula 3.00 12/20/16 12:00 111 25 120/52 98 Nasal Cannula 3.00 12/20/16 12:00 98.2 12/20/16 12:00 Nasal Cannula 6.00 12/20/16 11:00 96 24 132/61 95 Nasal Cannula 3.00 12/20/16 10:00 102 30 116/59 97 Nasal Cannula 3.00 12/20/16 09:00 Nasal Cannula 6.00 12/20/16 09:00 96 26 111/59 93 Nasal Cannula 3.00 General Appearance: No Apparent Distress, WD/WN Neck: Normal Inspection Respiratory: No Accessory Muscle Use, No Respiratory Distress, Rhonci (right sided) Cardiovascular: No JVD, No Murmur, Tachycardia Capillary Refill: Less Than 3 Seconds Gastrointestinal: non tender, soft Extremity: Normal Capillary Refill, Normal Inspection, Normal Range of Motion, Non Tender, No Calf Tenderness, No Pedal Edema Neurologic/Psychiatric: Alert, Oriented x3 Skin: Ecchymosis (on right side of face) Lymphatic: No Adenopathy Results Lab Laboratory Tests 12/20/16 04:20 12/21/16 06:50 Assessment/Plan Assessment/Plan Pneumonia HCAP -broadspectrum abx with Rocephin , vanco, and levaquin Adenocarcinoma of lung stage III s/p chemoradiation followed by adjuvant chemotherapy -Oncology is following Thrush -Diflucan radiation pneumonitis dx 1 month ago prednisone Afib RVR -cardiology following -Cardizem gtt 232 Clinical Quality Measures DVT/VTE Risk/Contraindication: Risk Factor Score Per Nursin RFS Level Per Nursing on Admit: 4+=Very High CELIA BARKSDALE DO Dec 21, 2016 08:39
[2016-12-21] MEDS: FLUCONAZOLE 100 MG/50 ML 50 ML IV SCH (09:11)
--- NOTE | 2016-12-21 09:37 | Progress Note-Hospitalist ---
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 She he subsequently went combination chemotherapy and radiation therapy. She was to take 3 additional courses of chemotherapy. She had been feeling sluggish because of her illness and treatment. Yesterday she noted fever to 102+, diaphoresis and increased cough and shortness of breath. Chest x-ray last night showed increasing pneumonitis or pneumonia in the right lung and she was admitted. Subjective/Events-last exam Patient reports feeling better today than yesterday. Her nausea is improved from yesterday and she has been able to tolerate some of her food. She had minimal UOP yesterday but states she is "filled her depends" this morning. Still complains of cough. Objective Exam Vital Signs Vital Sign - Last 12Hours 12/18/16 12/18/16 22:08 23:00 Temp 99.2 Pulse 108 Resp 22 B/P (MAP) 156/79 Pulse Ox 93 O2 Delivery Room Air O2 Flow Rate 2.00 Capillary Refill : Less Than 3 Seconds General Appearance: No Apparent Distress, WD/WN Respiratory: Chest Non Tender, No Accessory Muscle Use, No Respiratory Distress , No Respiratory Distress, Rhonci, No Stridor, Wheezing Cardiovascular: Regular Rate, Rhythm, No Edema, No Murmur Gastrointestinal: Normal Bowel Sounds, Non Tender, Soft Neurologic/Psychiatric: Alert, Oriented x3 Results/Procedures Lab Laboratory Tests 12/21/16 06:50 Assessment/Plan Assessment and Plan Assess & Plan/Chief Complaint CAP Diagnosis/Problems Diagnosis/Problems (1) Pneumonia involving right lung Status: Acute Assessment & Plan: Diagnosed with radiation pneumonitis recently (on steroids) On Ceftriaxone, Levaquin, Vanc Follows with Dr. Bermeo for oncology Continue on Prednisone (may need stress dosing if becomes hypotensive) Has persistent coughing, will add promethazine/codeine cough syrup along with tessalon Will check for pertussis as well (2) Adenocarcinoma of lung Assessment & Plan: Follows with Dr. Bermeo, receives radiation and chemotherapy Holding chemo per Jean-Claude's recs (3) Atrial fibrillation Assessment & Plan: Was in a-fib with RVR 12/19, never necessitated cardizem gtt Cardiology consulted, appreciate recs Follow up ECHO Continue oral Cardizem, started on metoprolol as aell Lovenox for anticoagulation (4) Intractable nausea and vomiting Status: Acute Assessment & Plan: Improved with Phenergan and Zofran Will continue IVF (5) COPD (chronic obstructive pulmonary disease) Status: Chronic Assessment & Plan: No acute exacerbation (6) Prophylactic measure Assessment & Plan: Therapeutic Lovenox for a fib, no further dvt ppx GILLES RICHARDSON MD Dec 21, 2016 09:36
[2016-12-21] MEDS: PROMETHAZINE/ CODEINE SYRUP 5 ML UDC PO PRN (11:21)
--- NOTE | 2016-12-21 16:44 | Cardiology Progress Note ---
Subjective Date Seen by Provider: Dec 21, 2016 Time Seen by Provider: 16:42 Subjective/Events-last exam patient is sitting up, seen at bedside, still having shortness of breath and cough. No chest pain, still in sinus rhythm Review of Systems General: No Chills, No Night Sweats, Fatigue, Malaise, No Appetite, No Other HEENT: No Head Aches, No Visual Changes, No Eye Pain, No Ear Pain, No Dysphasia , No Sinus Congestion, No Post Nasal Drip, No Sore Throat, No Other Pulmonary: Dyspnea, Cough Cardiovascular: No: Chest Pain, Palpitations, Orthopnea, Paroxysmal Noc. Dyspnea, Edema, Lt Headedness, Other Objective-Cardiology Exam Last Set of Vital Signs Vital Signs 12/21/16 15:34 Temp 96.5 Pulse 92 Resp 22 B/P (MAP) 110/55 Pulse Ox 85 O2 Delivery High Flow N/C O2 Flow Rate 6.00 Capillary Refill : Less Than 3 Seconds I&O Intake and Output 12/22/16 00:00 Intake Total 200 ml Output Total 125 ml Balance 75 ml Intake Oral 200 ml Output Urine Total 125 ml General: Alert, Oriented X3, Cooperative HEENT: Atraumatic, PERRLA Neck: Supple, No JVD, No Thyromegaly Lungs: Normal Air Movement, Other (bilateral rhonchi) Heart: Regular Rate, Normal S1, Normal S2, No Murmurs Abdomen: Normal Bowel Sounds, Soft, No Tenderness, No Hepatosplenomegaly, No Masses Extremities: No Clubbing, No Cyanosis, No Edema, Normal Pulses, No Tenderness/ Swelling Skin: No Rashes, No Breakdown, No Significant Lesion Neuro: Normal Gait, Normal Speech, Strength at 5/5 X4 Ext, Normal Tone, Sensation Intact Psych/Mental Status: Mental Status NL, Mood NL Results Lab Laboratory Tests 12/21/16 06:50 A/P-Cardiology Admission Diagnosis Paroxysmal atrial fibrillation Pneumonia Lung cancer Shortness of breath Assessment/Plan Paroxysmal atrial fibrillation, back to sinus rhythm, continue on telemetry and monitored, continue current medication. Pneumonia, radiation pneumonitis, lung cancer, receiving treatment and antibiotics. Followed and managed by primary care physician Shortness of breath, cough, secondary to pneumonia. COPD. Clinical Quality Measures DVT/VTE Risk/Contraindication: Risk Factor Score Per Nursin RFS Level Per Nursing on Admit: 4+=Very High JIGNESH MAE MD Dec 21, 2016 4:44 pm
--- NOTE | 2016-12-21 18:08 | Progress Note-Standard ---
Standard Progress Note Progress Notes/Assess & Plan Date Seen by Provider: Dec 21, 2016 Time Seen by Provider: 18:01 Progress/Assessment & Plan 66 year old female non-small cell lung cancer, status post combined chemoradiation. Was on adjuvant chemotherapy with weekly carboplatin and paclitaxel regimen. Patient admitted with fever, right-sided pleuritic pain and right upper lobe infiltrates consistent with pneumonia. She was diagnosed with radiation pneumonitis in the right lower lobe approximately a month ago and was on treatment with weaning dose of prednisone. Currently she is on 20 mg by mouth daily. No further temperature spikes. Feels better today and right -sided pleuritic pain has resolved. Paroxysmal cough productive of scanty sputum. Starting to eat small amounts. No diarrhea. History of splenectomy following laceration. Currently on broad-spectrum antibiotics with Rocephin, Levaquin and vancomycin. Continue. On Diflucan 100 mg IV daily since 12/20/2016 because of evidence of oral candidiasis. History of atrial fibrillation with rapid ventricular response on 12/19/16, currently in sinus rhythm. Cardiology following and adjusting medications. Chemotherapy on hold. Gradually worsening anemia, recheck lab work tomorrow. If worsening or symptomatic, she may need packed red blood cell transfusion. I am out of town until 01/01/2017. No medical oncology coverage this weekend. Dr. Duncan is diversional therapist next week. SAL SCHWARZ Dec 21, 2016 18:08
[2016-12-21] MEDS: CYCLOBENZAPRINE 10 MG (FLEXERIL) TAB PO SCH (20:00)
[2016-12-21] MEDS: AMITRIPTYLINE 50 MG (ELAVIL) TAB PO SCH (20:05)
[2016-12-21] MEDS: LEVOFLOXACIN 750 MG/D5W 150 ML PRE-MIX IV SCH (20:40)
[2016-12-22] MEDS: PROMETHAZINE/ CODEINE SYRUP 5 ML UDC PO PRN ×3 (00:14→13:03)
[2016-12-22] MEDS: RT-ALBUTEROL/IPRATROPIUM 3 ML (DUONEB) VIAL INH SCH ×6 (03:07→21:42)
[2016-12-22 04:05] VITALS: BP 117/80
[2016-12-22] MEDS: ENOXAPARIN 80 MG/0.8 ML (LOVENOX) SYR SC SCH ×2 (05:23→16:26)
[2016-12-22] MEDS: CATHETER FLUSH 10 ML SYR IV SCH ×3 (05:23→21:13)
[2016-12-22 05:36] LABS: BASOPHILS % (AUTO) 0 % (0-10); EOSINOPHILS % (AUTO) 0 % (0-10); LYMPHOCYTES # (AUTO) 0.6 X 10^3 (1.0-4.0); LYMPHOCYTES % (AUTO) 4 % (12-44); MEAN CORPUSCULAR HEMOGLOBIN 30 PG (25-34); MEAN CORPUSCULAR HGB CONC 33 G/DL (32-36); MEAN CORPUSCULAR VOLUME 92 FL (80-99); MONOCYTES % (AUTO) 7 % (0-12); NEUTROPHILS # (AUTO) 12.6 X 10^3 (1.8-7.8); NEUTROPHILS % (AUTO) 89 % (42-75); PLATELET COUNT 349 10^3/uL (130-400); RED BLOOD COUNT 2.74 10^6/uL (4.35-5.85); RED CELL DISTRIBUTION WIDTH 17.2 % (10.0-14.5); WHITE BLOOD COUNT 14.3 10^3/uL (4.3-11.0)
[2016-12-22 08:20] VITALS: BP 117/65
[2016-12-22] MEDS: predniSONE 20 MG TAB PO SCH (09:11)
[2016-12-22] MEDS: RAMIPRIL 2.5 MG (ALTACE) CAP PO SCH (09:11)
[2016-12-22] MEDS: meTOprolol TARTRATE 25 MG (LOPRESSOR) TABLET PO SCH ×3 (09:11→21:13)
[2016-12-22] MEDS: IBUPROFEN TABLET 200 MG TAB PO SCH ×2 (09:12→16:28)
[2016-12-22] MEDS: BENZONATATE 100 MG (TESSALON) CAPSULE PO SCH ×3 (09:12→21:13)
[2016-12-22] MEDS: FLUCONAZOLE 100 MG/50 ML 50 ML IV SCH (09:13)
[2016-12-22] MEDS: NICOTINE 14 MG (NICODERM) PATCH TD SCH (09:13)
[2016-12-22] MEDS: VANCOMYCIN 1 GM/NS 250 ML IVPB IV SCH ×4 (09:13→20:00)
[2016-12-22] MEDS: OMEGA 3 (FISH OIL) 1000 MG CAP PO SCH (09:13)
[2016-12-22 12:00] VITALS: BP 140/66
--- NOTE | 2016-12-22 13:45 | Progress Note-Hospitalist ---
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 She he subsequently went combination chemotherapy and radiation therapy. She was to take 3 additional courses of chemotherapy. She had been feeling sluggish because of her illness and treatment. Yesterday she noted fever to 102+, diaphoresis and increased cough and shortness of breath. Chest x-ray last night showed increasing pneumonitis or pneumonia in the right lung and she was admitted. Subjective/Events-last exam She reports feeling better today. She has been able to eat more food and she still feels short of breath and has increased oxygen requirement she is asking for a transfusion of blood. She does acknowledge a history of ARDS secondary to a blood transfusion in the past though. Objective Exam Vital Signs Vital Sign - Last 12Hours 12/18/16 12/18/16 22:08 23:00 Temp 99.2 Pulse 108 Resp 22 B/P (MAP) 156/79 Pulse Ox 93 O2 Delivery Room Air O2 Flow Rate 2.00 Capillary Refill : Less Than 3 Seconds General Appearance: No Apparent Distress Respiratory: Chest Non Tender, No Accessory Muscle Use, No Respiratory Distress , Wheezing Cardiovascular: Regular Rate, Rhythm, No Edema, No Murmur Gastrointestinal: Normal Bowel Sounds, Non Tender, Soft Extremity: Non Tender, No Calf Tenderness, No Pedal Edema Neurologic/Psychiatric: Alert, Oriented x3 Results/Procedures Lab Laboratory Tests 12/22/16 05:30 Assessment/Plan Assessment and Plan Assess & Plan/Chief Complaint CAP Diagnosis/Problems Diagnosis/Problems (1) Pneumonia involving right lung Status: Acute Assessment & Plan: Diagnosed with radiation pneumonitis recently (on steroids) On Ceftriaxone, Levaquin, Vanc Follows with Dr. Bermeo for oncology Continue on Prednisone (may need stress dosing if becomes hypotensive) Cont promethazine/codeine cough syrup along with tessalon Awaiting pertussis results (2) Adenocarcinoma of lung Assessment & Plan: Follows with Dr. Bermeo, receives radiation and chemotherapy Holding chemo per Jean-Claude's recs (3) Normocytic anemia Status: Chronic Assessment & Plan: Baseline anemia, stable over past few days Discussed pros and cons of blood transfusion and how no indication at this time for one Will continue to trend blood counts (4) Atrial fibrillation Assessment & Plan: Was in a-fib with RVR 12/19, never necessitated cardizem gtt Cardiology consulted, appreciate recs Continue oral Cardizem and metoprolol as well Lovenox for anticoagulation- consider switch to warfarin (5) Intractable nausea and vomiting Status: Resolved Assessment & Plan: Improved with Phenergan and Zofran Tolerating PO now (6) COPD (chronic obstructive pulmonary disease) Status: Chronic Assessment & Plan: No acute exacerbation (7) Prophylactic measure Assessment & Plan: Therapeutic Lovenox for a fib, no further dvt ppx Saline lock GILLES RICHARDSON MD Dec 22, 2016 13:45
--- NOTE | 2016-12-22 13:57 | Physical Therapy Evaluation ---
PT Evaluation-General Medical Diagnosis Admission Date Dec 19, 2016 at 01:00 Medical Diagnosis: pneumonia/lung cancer Onset Date: Dec 19, 2016 Therapy Diagnosis Therapy Diagnosis: generalized weakness/debility Height/Weight Height (Feet): 5 Height (Inches): 3.00 Weight (Pounds): 165 Weight (Ounces): 0.0 Precautions Precautions/Isolations: Chemo Precautions, Standard Precautions Referral Physician: Ricardo Reason for Referral: Evaluation/Treatment Medical History Pertinent Medical History: Atrial Fib, COPD, HTN, Smoking Additional Medical History congenital facial hemangioma Current History ED with fever and SOA diagnosed with lung cancer with mets to sternum Reviewed History: Yes Social History Home: Single Level Current Living Status: Alone Prior/Core FIM Prior Level of Function Functional [place] Measure 0=Not Assessed/NA 4=Minimal Assistance 1=Total Assistance 5=Supervision or Setup 2=Maximal Assistance 6=Modified [place] 3=Moderate Assistance 7=Complete [place] Bed Mobility: 7 Transfers (B,C,W/C) (FIM): 7 Gait: 7 Locomotion: 7 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 Currently on 10L O2 NC. SAO2 at rest 95%. Pain Numeric Pain Scale: 0-No Pain Location: No Pain Reported Objective Patient Orientation: Normal For Age Problem Solving: Good Attachments: Oxygen, IV ROM/Strength ROM Lower Extremities bilateral LE WNL Strenght Lower Extremities right knee flexion/extension 3+/5; hip flexion 3+/5; ankle dorsi/plantarflexion 3+/5 left knee flexion/extension 3+/5; hip flexion 3+/5; ankle dorsi/plantarflexion 3 +/5 Integumentary/Posture Integumentary refer to nursing notes Bowel Incontinence: No Bladder Incontinence: No Posture WNL Neuromuscular (Tone, Coordination, Reflexes) grossly intact Sensory Vision: Wears Glasses Hearing: Functional Sensation Right Lower Extremit: Intact Sensation Left Lower Extremity: Intact Transfers Functional [place] Measure 0=Not Assessed/NA 4=Minimal Assistance 1=Total Assistance 5=Supervision or Setup 2=Maximal Assistance 6=Modified [place] 3=Moderate Assistance 7=Complete [place] Transfers (B, C, W/C) (FIM): 5 Scootin Rollin Supine to/from Sit: 5 Sit to/from Stand: 5 Gait Mode of Locomotion: Walk Anticipated Mode of Locomotion: Walk Gait (FIM): 1 Distance (FIM): 1=up to 49 ft Distance: 5' Gait Level of Assist: 5 Gait Persons Needed: 1 Gait Assistive Device: FWW Comments/Gait Description functional; increase SOA with minimal activity Balance Sitting Static: Normal Sitting Dynamic: Normal Standing Static: Normal Standing Dynamic: Normal Assessment/Needs 66 y.o. female, will benefit from short term skilled PT to address functional mobility to improve current LOF and to safely return to home at maximum LOF. SAO2 maintained 95% with activity. Rehab Potential: Guarded PT Nursing Home Goals Education General Manager Goals PT Nursing Home Goals Time Frame: Jan 05, 2017 Transfers (B,C,W/C) (FIM): 6 Gait (FIM): 2 Gait distance (FIM): 6=493-10 ft Distance: 75' Gait Level of Assist: 6 Gait Assistive Device: FWW PT Plan Problem List Problem List: Activity Tolerance, Safety, Gait Treatment/Plan Treatment Plan: Continue Plan of Care Treatment Plan: Education, Functional Activity Silvana, Functional Strength, Gait , Safety, Therapeutic Exercise, Transfers Treatment Duration: Jan 05, 2017 Frequency: 6 times per week Estimated Hrs Per Day: .25 hour per day Patient and/or Family Agrees t: Yes Safety Risks/Education Patient Education: Disease Process Teaching Recipient: Patient Teaching Methods: Discussion Response to Teaching: Verbalize Understanding Discharge Recommendations Therapy D/C Recommendations: Home Independently Time/GCodes Time In: 1250 Time Out: 1315 Total Billed Treatment Time: 25 Total Billed Treatment 1 visit EVModC 25 min JEANNE BANDA PT Dec 22, 2016 13:57
--- NOTE | 2016-12-22 14:22 | Occupational Therapy Eval ---
OT Evaluation-General/PLF Medical Diagnosis Admission Date Dec 19, 2016 at 01:00 Medical Diagnosis: pneumonia/lung cancer Onset Date: Dec 19, 2016 Therapy Diagnosis Therapy Diagnosis: decr self care, weakness, decr activity tolerance Height/Weight Height (Feet): 5 Height (Inches): 3.00 Weight (Pounds): 165 Weight (Ounces): 0.0 Precautions Precautions/Isolations: Droplet Isolation, Chemo Precautions, Standard Precautions Safety Interventions: None Referral Physician: Ricardo Referral Reason: Evaluation/Treatment Medical History Pertinent Medical History: Atrial Fib, COPD, HTN, Smoking Additional Medical History Facial surgery x 3 for congenital hemangioma. laminectomy. Colon resection. Stress incontinence. Hx c diff. Loss of vision bilat. Depression. Lung CA May 2016, with chemo and radiation. Current History Admitted through ED with R lung pain. Reviewed History: Yes Social History Home: Single Level Current Living Status: Alone Steps Into Home: 3 Steps Inside Home: 2 ADL-Prior Level of Function ADL PLOF Comments Pt reported that she has been managing her basic ADLs and IADLs ("My house is a mess but I don't have the energy to deal with it."). 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 Pain 0/10 Appearance Alert, cooperative Mental Status/Objective Patient Orientation: Person, Place, Time, Situation Attachments: Central Line, Oxygen (10L/min nc), Ventilator Current Glasses/Contacts: Yes Hearing Aids: No Dentures/Partials: No Hand Dominance: Right Upper Extremity ROM grossly WFL. Pt reported limited range R shoulder but it was grossly equal to L shoulder. Upper Extremity Coordination Pt reported no problems Upper Extremity Strength grossly 4/5 bilat ADL-Treatment ADL-Current Pt has been getting up to use BSC with assistance and able to get drink. She reported her biggest problem was decreased activity tolerance and coughing. pt coughed quite a bit during evaluation. Transferring SBA, amb with FWW Functional [place] Measure 0=Not Assessed/NA 4=Minimal Assistance 1=Total Assistance 5=Supervision or Setup 2=Maximal Assistance 6=Modified [place] 3=Moderate Assistance 7=Complete IndependenceIRFPAI Quality Coding Scale 6 Independent with activity with or without an assistive device 5 Patient requires set up or clean up by helper. Patient completes activity by themselves 4 Supervision or touching assist (CGA). [place] provide cues , steadying assist 3 The helper provides less than half the effort to complete the activity 2 The helper provides more than half the effort to complete the activity 1 Dependent. The helper does all the effort to complete an activity 7 Patient refused to complete or attempt activity 9 The patient did not perform the activity before the current illness or injury 88 Not attempted due to Medical conditions or safety concerns Education OT Patient Education: Purpose of tx/functional activities, Rehab process Teaching Recipient: Patient Teaching Methods: Discussion Response to Teaching: Verbalize Understanding OT Short Term Goals Short Term Goals 1=Demonstrate adherence to instructed precautions during ADL tasks. 2=Patient will verbalize/demonstrate understanding of assistive devices/ modifications for ADL. 3=Patient will improve strength/tolerance for activity to enable patient to perform ADL's. OT Skein Bander Goals Skein Bander Goals Time Frame: Jan 05, 2017 Eating (FIM): 6 Grooming(FIM): 6 Bathing(FIM): 5 Upper Body Dressing(FIM): 5 Lower Body Dressing(FIM): 5 Toileting(FIM): 6 Toilet/Commode Transfer(FIM): 6 Shower Transfer(FIM): 5 1=Demonstrate adherence to instructed precautions during ADL tasks. 2=Patient will verbalize/demonstrate understanding of assistive devices/ modifications for ADL. 3=Patient will improve strength/tolerance for activity to enable patient to perform ADL's. OT Education/Plan Problem List/Assessment Assessment: Decreased Activ Tolerance, Decreased UE Strength, Impaired Self- Care Skills Pt would benefit from skilled OT to increase her independence in basic self care to allow her to safely return to her home and decrease caregiver burden Discharge Recommendations Plan/Recommendations: Continue POC Treatment Plan/Plan of Care Treatment,Training & Education: Yes Patient would benefit from OT for education, treatment and training to promote independence in ADL's, mobility, safety and/or upper extremity function for ADL' s. Plan of Care: ADL Retraining, UE Funct Exercise/Act, OTHER (energy conservation education) Treatment Duration: Jan 05, 2017 Frequency: 5 times per week Estimated Hrs Per Day: .5 hour per day Agreement: Yes Rehab Potential: Guarded Time/GCodes Start Time: 13:15 Stop Time: 13:30 Total Time Billed (hr/min): 15 Billed Treatment Time visit, 15 minutes evaluation low intensity JAMES JORDAN OT Dec 22, 2016 14:22
[2016-12-22 14:37] LABS: B PARAPERTUSIS DNA Not Detected (Not Detected); B PERTUSSIS DNA Not Detected (Not Detected)
[2016-12-22 15:25] VITALS: BP 123/71
[2016-12-22] MEDS ORDERED: FUROSEMIDE 40 MG/4 ML INJ (LASIX) IVP NR (16:15)
[2016-12-22] MEDS: LACTOBACILLUS Acidoph/Bulgar 1 GM (LACTINEX) PACKET PO SCH ×2 (16:50→21:12)
[2016-12-22] MEDS: methylPREDNISolone 40 MG/ML (Solu-MEDROL) VIAL IV SCH ×2 (17:37→23:19)
--- NOTE | 2016-12-22 19:58 | Clinic Account Progress/Dx ---
Clinic Account Progress/Dx DIAGNOSIS: Date Seen by Provider: Dec 22, 2016 Time Seen by Provider: 16:00 Diagnosis Called to bedside over increasing oxygen requirement. When I entered room, breathing comfortably and talking in full sentences despite increased oxygen requirement (necessitating vapotherm and 35% FiO2). Gen: Laying in bed, appears comfortable Resp: Decreased breath sounds in bases, no wheezing appreciable Card: RRR, no murmur Ext: Trace pedal edema, no calf tenderness Discussed plan with patient to attempt IV lasix to help diurese as she is ~3.5L positive since admission. Will also adjust steroids to IV at this time. Discussed goals of care if respiratory needs increased and expectancy for potentially long course on MV if intubated. She elected to change her code status to DNI/DNR. Orders entered. Time spent at bedside and developing plan of care [id number]. GILLES RICHARDSON MD Dec 22, 2016 19:58
[2016-12-22] MEDS: LEVOFLOXACIN 750 MG/D5W 150 ML PRE-MIX IV SCH (21:12)
[2016-12-22] MEDS: AMITRIPTYLINE 50 MG (ELAVIL) TAB PO SCH (21:13)
[2016-12-22] MEDS: CYCLOBENZAPRINE 10 MG (FLEXERIL) TAB PO SCH (21:13)
[2016-12-22 23:03] VITALS: BP 167/81
[2016-12-23] VITALS (7 sets, daily range): BP systolic 119–153; BP diastolic 64–80
[2016-12-23] MEDS: RT-ALBUTEROL/IPRATROPIUM 3 ML (DUONEB) VIAL INH SCH ×6 (03:16→23:07)
[2016-12-23] MEDS: ENOXAPARIN 80 MG/0.8 ML (LOVENOX) SYR SC SCH ×2 (05:53→17:46)
[2016-12-23] MEDS: CATHETER FLUSH 10 ML SYR IV SCH ×3 (05:55→22:27)
[2016-12-23] MEDS: methylPREDNISolone 40 MG/ML (Solu-MEDROL) VIAL IV SCH ×4 (05:55→23:28)
[2016-12-23] MEDS ORDERED: FUROSEMIDE 40 MG/4 ML INJ (LASIX) IVP ONE (08:30)
--- NOTE | 2016-12-23 08:40 | Progress Note-Hospitalist ---
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 She he subsequently went combination chemotherapy and radiation therapy. She was to take 3 additional courses of chemotherapy. She had been feeling sluggish because of her illness and treatment. Yesterday she noted fever to 102+, diaphoresis and increased cough and shortness of breath. Chest x-ray last night showed increasing pneumonitis or pneumonia in the right lung and she was admitted. Subjective/Events-last exam Reports feeling okay. Not coughing as much. Oxygen was increased overnight while asleep but they have already started to titrate down. She has difficulty going to the bathroom and thinks oxygen gets worse then and is requesting a cody. Speaks in full sentences Objective Exam Vital Signs Vital Sign - Last 12Hours 12/18/16 12/18/16 12/22/16 22:08 23:00 19:32 Temp 99.2 Pulse 108 Resp 22 B/P (MAP) 156/79 Pulse Ox 93 O2 Delivery Room Air O2 Flow Rate 2.00 FiO2 100 Capillary Refill : Less Than 3 Seconds General Appearance: No Apparent Distress, WD/WN Respiratory: No Accessory Muscle Use, Rhonci (right worse than left), No Stridor, No Wheezing Cardiovascular: Regular Rate, Rhythm, No JVD, No Murmur Gastrointestinal: Non Tender, Soft Extremity: Non Tender, No Calf Tenderness, Pedal Edema (trace) Neurologic/Psychiatric: Alert, Oriented x3 Assessment/Plan Assessment and Plan Assess & Plan/Chief Complaint CAP Diagnosis/Problems Diagnosis/Problems (1) Pneumonia involving right lung Status: Acute Assessment & Plan: Had worsening oxygen requirements yesterday- will continue Lasix Diagnosed with radiation pneumonitis recently- adjusting steroids to IV On Ceftriaxone, Levaquin, Vanc Follows with Dr. Bermeo for oncology Cont promethazine/codeine cough syrup along with tessalon Vapotherm MAT protocol Will place cody to help avoid desaturations with movement Qualifiers: Qualified Codes: J18.1 - Lobar pneumonia, unspecified organism (2) COPD (chronic obstructive pulmonary disease) Status: Chronic Assessment & Plan: Some wheezing yesterday afternoon Adjusted steroids to IV from oral Continue Vapotherm, Duonebs, MAT Protocol Qualifiers: Qualified Codes: J44.1 - Chronic obstructive pulmonary disease with (acute) exacerbation (3) Adenocarcinoma of lung Assessment & Plan: Follows with Dr. Bermeo, receives radiation and chemotherapy Holding chemo per Jean-Claude's recs (4) Normocytic anemia Status: Chronic Assessment & Plan: Baseline anemia, stable over past few days Discussed pros and cons of blood transfusion and how no indication at this time for one Will continue to trend blood counts and check blood conservatively (5) Atrial fibrillation Assessment & Plan: Paroxysmal Was in a-fib with RVR 12/19, never necessitated cardizem gtt Cardiology consulted, appreciate recs Continue oral Cardizem and metoprolol as well Lovenox for anticoagulation- consider switch to warfarin (6) Intractable nausea and vomiting Status: Resolved Assessment & Plan: Improved with Phenergan and Zofran Tolerating PO now (7) Prophylactic measure Assessment & Plan: Therapeutic Lovenox for a fib, no further dvt ppx Saline lock GILLES RICHARDSON MD Dec 23, 2016 08:40
--- NOTE | 2016-12-23 09:47 | Physical Therapy Progress Note ---
Therapy Progress Note Pt refused PT treatment today. ALEXI JOHNSON PT Dec 23, 2016 09:47
[2016-12-23] MEDS: VANCOMYCIN 1 GM/NS 250 ML IVPB IV SCH ×4 (10:14→20:03)
[2016-12-23] MEDS: meTOprolol TARTRATE 25 MG (LOPRESSOR) TABLET PO SCH ×3 (10:14→21:16)
[2016-12-23] MEDS: BENZONATATE 100 MG (TESSALON) CAPSULE PO SCH ×3 (10:15→21:16)
[2016-12-23] MEDS: OMEGA 3 (FISH OIL) 1000 MG CAP PO SCH (10:15)
[2016-12-23] MEDS: LACTOBACILLUS Acidoph/Bulgar 1 GM (LACTINEX) PACKET PO SCH ×4 (10:15→21:16)
[2016-12-23] MEDS: IBUPROFEN TABLET 200 MG TAB PO SCH ×2 (10:15→17:46)
[2016-12-23] MEDS: RAMIPRIL 2.5 MG (ALTACE) CAP PO SCH (10:15)
[2016-12-23] MEDS: NICOTINE 14 MG (NICODERM) PATCH TD SCH (10:23)
[2016-12-23] MEDS: FLUCONAZOLE 100 MG/50 ML 50 ML IV SCH (12:01)
--- NOTE | 2016-12-23 19:01 | Pulmonary Progress Note ---
Exam Exam Vital Signs Date Time Temp Pulse Resp B/P (MAP) Pulse Ox O2 Delivery O2 Flow Rate FiO2 12/23/16 16:55 98.2 101 18 133/76 96 Vapotherm 30.00 12/23/16 15:06 Vapotherm 30.00 90 12/23/16 12:00 97.6 78 18 137/74 93 Vapotherm 30.00 12/23/16 11:37 92 Vapotherm 30.00 90 12/23/16 08:45 95 Vapotherm 30.00 12/23/16 08:05 98.5 93 20 134/65 92 Vapotherm 30.00 12/23/16 07:23 91 Vapotherm 30.00 90 12/23/16 07:05 73 12/23/16 04:00 96.7 73 20 119/64 94 Vapotherm 30.00 12/23/16 03:16 92 Vapotherm 30.00 90 12/23/16 00:39 100 12/23/16 00:00 96.1 76 20 153/80 95 Vapotherm 12/22/16 23:03 97.2 72 20 167/81 92 Vapotherm 100.00 35.00 12/22/16 21:42 Vapotherm 30.00 90 12/22/16 20:00 95 Vapotherm 30.00 12/22/16 19:45 110 12/22/16 19:32 97 Vapotherm 30.00 100 I & O 12/24/16 07:00 Intake Total 420 ml Output Total 1600 ml Balance -1180 ml General Appearance: No Apparent Distress, WD/WN Neck: Normal Inspection Respiratory: No Accessory Muscle Use, Rhonci (right worse than left), No Stridor, No Wheezing Cardiovascular: Regular Rate, Rhythm, No JVD, No Murmur Capillary Refill: Less Than 3 Seconds Gastrointestinal: non tender, soft Extremity: Non Tender, No Calf Tenderness, Pedal Edema (trace) Neurologic/Psychiatric: Alert, Oriented x3 Skin: Ecchymosis (on right side of face) Lymphatic: No Adenopathy Results Lab Laboratory Tests 12/22/16 05:30 Assessment/Plan Assessment/Plan Pneumonia HCAP Last temp was 12/20 -broadspectrum abx with Rocephin , vanco, and levaquin -Repeat CXR and LAbs Adenocarcinoma of lung stage III s/p chemoradiation followed by adjuvant chemotherapy -Oncology is following Thrush -Diflucan radiation pneumonitis dx 1 month ago prednisone Afib RVR -cardiology following -Cardizem gtt 232 Clinical Quality Measures DVT/VTE Risk/Contraindication: Risk Factor Score Per Nursin RFS Level Per Nursing on Admit: 4+=Very High CELIA BARKSDALE DO Dec 23, 2016 19:01
[2016-12-23 20:04] LABS: BASOPHILS % (AUTO) 0 % (0-10); EOSINOPHILS % (AUTO) 0 % (0-10); LYMPHOCYTES # (AUTO) 0.3 X 10^3 (1.0-4.0); LYMPHOCYTES % (AUTO) 2 % (12-44); MEAN CORPUSCULAR HEMOGLOBIN 30 PG (25-34); MEAN CORPUSCULAR HGB CONC 33 G/DL (32-36); MEAN CORPUSCULAR VOLUME 91 FL (80-99); MEAN PLATELET VOLUME 9.5 FL (7.4-10.4); MONOCYTES # (AUTO) 0.7 X 10^3 (0.0-1.0); MONOCYTES % (AUTO) 5 % (0-12); NEUTROPHILS # (AUTO) 13.3 X 10^3 (1.8-7.8); NEUTROPHILS % (AUTO) 93 % (42-75); PLATELET COUNT 388 10^3/uL (130-400); RED BLOOD COUNT 2.85 10^6/uL (4.35-5.85); RED CELL DISTRIBUTION WIDTH 17.5 % (10.0-14.5); WHITE BLOOD COUNT 14.3 10^3/uL (4.3-11.0)
[2016-12-23 20:17] LABS: ANION GAP 12 MMOL/L (5-14); BLOOD UREA NITROGEN 29 MG/DL (7-18); BUN/CREATININE RATIO 37; CALCIUM 9.2 MG/DL (8.5-10.1); CARBON DIOXIDE 25 MMOL/L (21-32); CHLORIDE 99 MMOL/L (98-107); CREATININE SERUM 0.79 MG/DL (0.60-1.30); GFR ESTIMATED > 60; GLUCOSE 229 MG/DL (70-105); MAGNESIUM 1.4 MG/DL (1.8-2.4); PHOSPHORUS 3.2 MG/DL (2.3-4.7); POTASSIUM 3.5 MMOL/L (3.6-5.0); SODIUM 136 MMOL/L (135-145)
[2016-12-23] MEDS: MEROPENEM 500 MG in NS (IVPB) 100 ML IV SCH (21:16)
--- NOTE | 2016-12-23 21:18 | Diagnostic Imaging Report ---
INDICATION: History of lung cancer. Pneumonia. COMPARISON: 12/21/16. EXAMINATION: Single view of the chest was obtained. FINDINGS: Unchanged infiltrate in the hilum and right upper lobe. Stable effusion is seen in both bases. There is no pneumothorax. The heart remains prominent. Osseous structures are stable. Port-A-Cath is unchanged. IMPRESSION: Unchanged aeration of lungs. Dictated by: Dictated on workstation # [id number]
[2016-12-23] MEDS: AMITRIPTYLINE 50 MG (ELAVIL) TAB PO SCH (21:51)
[2016-12-23] MEDS: CYCLOBENZAPRINE 10 MG (FLEXERIL) TAB PO SCH (21:51)
[2016-12-23] MEDS: LEVOFLOXACIN 750 MG/D5W 150 ML PRE-MIX IV SCH (21:51)
[2016-12-24] VITALS: BP 121/60
[2016-12-24 00:24] VITALS: BP_SYST 153
[2016-12-24] MEDS: MEROPENEM 500 MG in NS (IVPB) 100 ML IV SCH ×4 (02:30→19:29)
[2016-12-24] MEDS: RT-ALBUTEROL/IPRATROPIUM 3 ML (DUONEB) VIAL INH SCH ×6 (02:51→23:07)
[2016-12-24 04:00] VITALS: BP 133/68
[2016-12-24] MEDS: methylPREDNISolone 40 MG/ML (Solu-MEDROL) VIAL IV SCH ×4 (05:36→23:36)
[2016-12-24] MEDS: ENOXAPARIN 80 MG/0.8 ML (LOVENOX) SYR SC SCH ×2 (05:37→17:30)
[2016-12-24 05:49] LABS: BASOPHILS % (AUTO) 0 % (0-10); EOSINOPHILS % (AUTO) 0 % (0-10); LYMPHOCYTES # (AUTO) 0.3 X 10^3 (1.0-4.0); LYMPHOCYTES % (AUTO) 2 % (12-44); MEAN CORPUSCULAR HEMOGLOBIN 30 PG (25-34); MEAN CORPUSCULAR HGB CONC 34 G/DL (32-36); MEAN CORPUSCULAR VOLUME 91 FL (80-99); MEAN PLATELET VOLUME 9.3 FL (7.4-10.4); MONOCYTES # (AUTO) 0.8 X 10^3 (0.0-1.0); MONOCYTES % (AUTO) 6 % (0-12); NEUTROPHILS # (AUTO) 13.1 X 10^3 (1.8-7.8); NEUTROPHILS % (AUTO) 92 % (42-75); PLATELET COUNT 389 10^3/uL (130-400); RED CELL DISTRIBUTION WIDTH 17.5 % (10.0-14.5); WHITE BLOOD COUNT 14.3 10^3/uL (4.3-11.0)
[2016-12-24] MEDS: CATHETER FLUSH 10 ML SYR IV SCH ×3 (06:53→21:22)
[2016-12-24 08:00] VITALS: BP 160/75
[2016-12-24] MEDS: IBUPROFEN TABLET 200 MG TAB PO SCH ×2 (08:06→17:30)
[2016-12-24] MEDS: meTOprolol TARTRATE 25 MG (LOPRESSOR) TABLET PO SCH ×3 (08:07→21:20)
[2016-12-24] MEDS: OMEGA 3 (FISH OIL) 1000 MG CAP PO SCH ×2 (08:07→08:09)
[2016-12-24] MEDS: BENZONATATE 100 MG (TESSALON) CAPSULE PO SCH ×3 (08:07→21:19)
[2016-12-24] MEDS: RAMIPRIL 2.5 MG (ALTACE) CAP PO SCH (08:07)
[2016-12-24] MEDS: VANCOMYCIN 1 GM/NS 250 ML IVPB IV SCH ×4 (08:24→20:12)
[2016-12-24] MEDS: LACTOBACILLUS Acidoph/Bulgar 1 GM (LACTINEX) PACKET PO SCH ×4 (08:46→21:19)
[2016-12-24] MEDS: NICOTINE 14 MG (NICODERM) PATCH TD SCH (08:47)
[2016-12-24] MEDS: FLUCONAZOLE 100 MG/50 ML 50 ML IV SCH (10:01)
[2016-12-24] MEDS: PROMETHAZINE/ CODEINE SYRUP 5 ML UDC PO PRN (10:01)
--- NOTE | 2016-12-24 10:23 | Progress Note-Hospitalist ---
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 She he subsequently went combination chemotherapy and radiation therapy. She was to take 3 additional courses of chemotherapy. She had been feeling sluggish because of her illness and treatment. Yesterday she noted fever to 102+, diaphoresis and increased cough and shortness of breath. Chest x-ray last night showed increasing pneumonitis or pneumonia in the right lung and she was admitted. Subjective/Events-last exam Patient reports feeling slightly better this morning. Did have a headache last night. improved with decreased oxygen flow rate. Would like us to DC her fish oil. Objective Exam Vital Signs Vital Sign - Last 12Hours 12/18/16 12/18/16 12/22/16 22:08 23:00 19:32 Temp 99.2 Pulse 108 Resp 22 B/P (MAP) 156/79 Pulse Ox 93 O2 Delivery Room Air O2 Flow Rate 2.00 FiO2 100 Capillary Refill : Less Than 3 Seconds General Appearance: No Apparent Distress, WD/WN Respiratory: No Accessory Muscle Use, Wheezing Cardiovascular: Regular Rate, Rhythm Extremity: Non Tender, No Calf Tenderness, Pedal Edema Neurologic/Psychiatric: Alert, Oriented x3, Normal Mood/Affect Results/Procedures Lab Laboratory Tests 12/23/16 19:42 12/24/16 05:45 Assessment/Plan Assessment and Plan Assess & Plan/Chief Complaint CAP Diagnosis/Problems Diagnosis/Problems (1) Pneumonia involving right lung Status: Acute Assessment & Plan: Had worsening oxygen requirements yesterday throughout day but have been improving today - will continue Vicix Diagnosed with radiation pneumonitis recently- cont IV steroids On Levaquin, Vanc, Meropenem Follows with Dr. Bermeo for oncology Cont promethazine/codeine cough syrup along with tessalon Vapotherm MAT protocol Qualifiers: Qualified Codes: J18.1 - Lobar pneumonia, unspecified organism (2) COPD (chronic obstructive pulmonary disease) Status: Chronic Assessment & Plan: Some wheezing again today Continue IV steroids Continue Vapotherm, Duonebs, MAT Protocol Qualifiers: Qualified Codes: J44.1 - Chronic obstructive pulmonary disease with (acute) exacerbation (3) Adenocarcinoma of lung Assessment & Plan: Follows with Dr. Bermeo, receives radiation and chemotherapy Holding chemo per Jean-Claude's recs (4) Normocytic anemia Status: Chronic Assessment & Plan: Baseline anemia, slight drop today - If further drop tomorrow will likely need tranfusion Will continue to trend blood counts and check blood conservatively (5) Atrial fibrillation Assessment & Plan: Paroxysmal Was in a-fib with RVR /, never necessitated cardizem gtt Cardiology consulted, appreciate recs Continue oral Cardizem and metoprolol as well Lovenox for anticoagulation- consider switch to warfarin (6) Intractable nausea and vomiting Status: Resolved Assessment & Plan: Improved with Phenergan and Zofran Tolerating PO now (7) Prophylactic measure Assessment & Plan: Therapeutic Lovenox for a fib, no further dvt ppx Saline lock GILLES RICHARDSON MD Dec 24, 2016 10:23
[2016-12-24] MEDS ORDERED: FUROSEMIDE 40 MG/4 ML INJ (LASIX) IVP ONE (10:30)
[2016-12-24] MEDS: CALCIUM CARB + VIT D 600 MG (CALCARB + D) TAB PO SCH ×2 (11:05→21:20)
[2016-12-24 12:00] VITALS: BP 154/62
[2016-12-24 15:45] VITALS: BP 147/63
[2016-12-24] MEDS: LEVOFLOXACIN 750 MG/D5W 150 ML PRE-MIX IV SCH (21:19)
[2016-12-24] MEDS: AMITRIPTYLINE 50 MG (ELAVIL) TAB PO SCH (21:20)
[2016-12-24] MEDS: DOCUSATE SODIUM 100 MG (COLACE) CAP PO PRN (21:20)
[2016-12-24] MEDS: CYCLOBENZAPRINE 10 MG (FLEXERIL) TAB PO SCH (21:20)
[2016-12-25] VITALS: BP 125/60
[2016-12-25] MEDS: MEROPENEM 500 MG in NS (IVPB) 100 ML IV SCH ×4 (01:33→19:53)
[2016-12-25] MEDS: RT-ALBUTEROL/IPRATROPIUM 3 ML (DUONEB) VIAL INH SCH ×6 (03:38→22:22)
[2016-12-25 04:00] VITALS: BP 135/62
[2016-12-25] MEDS: methylPREDNISolone 40 MG/ML (Solu-MEDROL) VIAL IV SCH ×4 (05:38→23:50)
[2016-12-25] MEDS: ENOXAPARIN 80 MG/0.8 ML (LOVENOX) SYR SC SCH ×2 (05:38→18:51)
[2016-12-25] MEDS: CATHETER FLUSH 10 ML SYR IV SCH ×3 (05:39→22:14)
[2016-12-25 05:54] LABS: BASOPHILS % (AUTO) 0 % (0-10); EOSINOPHILS % (AUTO) 0 % (0-10); LYMPHOCYTES # (AUTO) 0.3 X 10^3 (1.0-4.0); LYMPHOCYTES % (AUTO) 2 % (12-44); MEAN CORPUSCULAR HEMOGLOBIN 30 PG (25-34); MEAN CORPUSCULAR HGB CONC 33 G/DL (32-36); MEAN CORPUSCULAR VOLUME 91 FL (80-99); MEAN PLATELET VOLUME 9.2 FL (7.4-10.4); MONOCYTES % (AUTO) 7 % (0-12); NEUTROPHILS # (AUTO) 12.5 X 10^3 (1.8-7.8); NEUTROPHILS % (AUTO) 91 % (42-75); PLATELET COUNT 393 10^3/uL (130-400); RED BLOOD COUNT 2.51 10^6/uL (4.35-5.85); RED CELL DISTRIBUTION WIDTH 17.8 % (10.0-14.5); WHITE BLOOD COUNT 13.7 10^3/uL (4.3-11.0)
[2016-12-25 06:15] LABS: ANION GAP 9 MMOL/L (5-14); BLOOD UREA NITROGEN 30 MG/DL (7-18); BUN/CREATININE RATIO 43; CALCIUM 9.2 MG/DL (8.5-10.1); CARBON DIOXIDE 29 MMOL/L (21-32); CHLORIDE 101 MMOL/L (98-107); CREATININE SERUM 0.69 MG/DL (0.60-1.30); GFR ESTIMATED > 60; GLUCOSE 190 MG/DL (70-105); POTASSIUM 3.5 MMOL/L (3.6-5.0); SODIUM 139 MMOL/L (135-145)
[2016-12-25 08:00] VITALS: BP 100/56
[2016-12-25] MEDS: LACTOBACILLUS Acidoph/Bulgar 1 GM (LACTINEX) PACKET PO SCH ×4 (08:25→20:40)
[2016-12-25] MEDS: NICOTINE 14 MG (NICODERM) PATCH TD SCH (08:26)
[2016-12-25] MEDS: IBUPROFEN TABLET 200 MG TAB PO SCH ×2 (08:26→18:52)
[2016-12-25] MEDS: RAMIPRIL 2.5 MG (ALTACE) CAP PO SCH (08:26)
[2016-12-25] MEDS: meTOprolol TARTRATE 25 MG (LOPRESSOR) TABLET PO SCH ×3 (08:27→20:40)
[2016-12-25] MEDS: CALCIUM CARB + VIT D 600 MG (CALCARB + D) TAB PO SCH ×2 (08:27→20:40)
[2016-12-25] MEDS: BENZONATATE 100 MG (TESSALON) CAPSULE PO SCH ×3 (08:28→20:40)
--- NOTE | 2016-12-25 09:48 | Physical Therapy Progress Note ---
Therapy Progress Note Patient has had a decline in medical status and is currently on vapotherm at 100 %/20L. Patient is on hold per Dr. Allison and RT. JEANNE BANDA PT Dec 25, 2016 09:48
--- NOTE | 2016-12-25 10:08 | Progress Note-Hospitalist ---
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 She he subsequently went combination chemotherapy and radiation therapy. She was to take 3 additional courses of chemotherapy. She had been feeling sluggish because of her illness and treatment. Yesterday she noted fever to 102+, diaphoresis and increased cough and shortness of breath. Chest x-ray last night showed increasing pneumonitis or pneumonia in the right lung and she was admitted. Progress Notes/Assess & Plan Date Seen 12/25/16 Time Seen by Provider: 10:00 Diagonsis/Assessment & Plan Patient requiring Vapotherm of 20 L maximum level and patient is breathing well Wondering about titrating the steroids down as much as possible Dr. Bloom will evaluate COPD management Once to start her iron therapy she takes every day due to her hemoglobin is 7.6 Denies any pain No BM yet the taking stool softeners of which help her in the past AFVSS, Pleasant, O x 3, pale, chronically ill RRR, CTAB diminished BS all kay No edema (1) Pneumonia involving right lung Status: Acute Assessment & Plan: Had worsening oxygen requirements yesterday throughout day but have been improving today - will continue Lasix Diagnosed with radiation pneumonitis recently- cont IV steroids On Levaquin, Vanc, Meropenem Follows with Dr. Bermeo for oncology Cont promethazine/codeine cough syrup along with tessalon Vapotherm MAT protocol Qualifiers: Qualified Codes: J18.1 - Lobar pneumonia, unspecified organism (2) COPD (chronic obstructive pulmonary disease) Status: Chronic Assessment & Plan: Some wheezing again today Continue IV steroids Continue Vapotherm, Duonebs, MAT Protocol Qualifiers: Qualified Codes: J44.1 - Chronic obstructive pulmonary disease with (acute) exacerbation (3) Adenocarcinoma of lung Assessment & Plan: Follows with Dr. Bermeo, receives radiation and chemotherapy Holding chemo per Jean-Claude's recs (4) Normocytic anemia Status: Chronic Assessment & Plan: Baseline anemia, slight drop today - If further drop tomorrow will likely need tranfusion Will continue to trend blood counts and check blood conservatively (5) Atrial fibrillation Assessment & Plan: Paroxysmal Was in a-fib with RVR 9/5, never necessitated cardizem gtt Cardiology consulted, appreciate recs Continue oral Cardizem and metoprolol as well Lovenox for anticoagulation- consider switch to warfarin (6) Intractable nausea and vomiting Status: Resolved Assessment & Plan: Improved with Phenergan and Zofran Tolerating PO now (7) Prophylactic measure Assessment & Plan: Therapeutic Lovenox for a fib, no further dvt ppx Saline lock Plan: Add Iron therapy home dose Colace for constipation Dr Bloom for steroid dosing she is requesting to decrease it Monitor closely Palliative Care consultation Poor prognosis DNR STACI BARTHOLOMEW DO Dec 25, 2016 10:08
[2016-12-25] MEDS ORDERED: FERROUS SULF 325 MG (IRON) TAB PO SCH (10:15)
[2016-12-25] MEDS: VANCOMYCIN 1 GM/NS 250 ML IVPB IV SCH ×4 (10:17→20:40)
--- NOTE | 2016-12-25 10:17 | Occ Therapy Progress Note ---
Therapy Progress Note Patient has had a decline in medical status and is currently on vapotherm at 100 %/20L. Patient is on hold per Nrsg. DURGA FAGAN Dec 25, 2016 10:17
--- NOTE | 2016-12-25 10:17 | Diagnostic Imaging Report ---
Portable upright radiograph of the chest. INDICATION: Pneumonia. FINDINGS: There are right upper lobe infiltrates. There is a component of the infiltrate with central lucency in the right upper lobe. Cavity formation or abscess is not ruled out. Bilateral small/moderate effusions are suggested with adjacent basilar atelectasis. The heart size is at the upper limits of normal. Overall prominence of interstitial markings seen similar to prior exam. There is an infusion port seen without change through the right IJ line with the tip at the upper SVC level. IMPRESSION: Persistent right upper lobe infiltrate with prominent central lucency, may relate to forming abscess or cavity. Consider CT evaluation if this finding persists or if clinically indicated. Dictated by: Dictated on workstation # [id number]
--- NOTE | 2016-12-25 11:41 | Pulmonary Progress Note ---
Subjective Time Seen by Provider: 11:36 Subjective/Events-last exam PT does not appear to be doing any better and CXR now questions abscess formation. Exam Exam Vital Signs Date Time Temp Pulse Resp B/P (MAP) Pulse Ox O2 Delivery O2 Flow Rate FiO2 12/25/16 10:28 89 Vapotherm 20.00 100 12/25/16 08:15 91 Vapotherm 15.00 12/25/16 08:00 97.3 101 20 100/56 99 Vapotherm 95.00 15.00 12/25/16 06:53 87 Vapotherm 15.00 95 12/25/16 04:00 97.1 91 22 135/62 94 Vapotherm 95.00 15.00 12/25/16 01:00 89 12/25/16 00:00 96.2 96 25 125/60 92 Vapotherm 95.00 15.00 12/24/16 23:07 93 Vapotherm 15.00 95 12/24/16 19:37 91 Vapotherm 15.00 95 12/24/16 19:30 91 Vapotherm 15.00 12/24/16 19:00 97 12/24/16 15:45 97.5 113 20 147/63 90 Vapotherm 95.00 15.00 12/24/16 15:21 93 Vapotherm 20.00 95 12/24/16 12:00 98.7 99 20 154/62 94 Vapotherm 18.00 General Appearance: WD/WN, Anxious, Chronically ill, Mild Distress Neck: Normal Inspection Respiratory: Accessory Muscle Use, Wheezing Cardiovascular: Regular Rate, Rhythm Capillary Refill: Less Than 3 Seconds Gastrointestinal: non tender, soft Extremity: Non Tender, No Calf Tenderness, Pedal Edema Neurologic/Psychiatric: Alert, Oriented x3, Normal Mood/Affect Skin: Ecchymosis (on right side of face) Lymphatic: No Adenopathy Results Lab Laboratory Tests 12/23/16 19:42 12/24/16 05:45 12/25/16 05:41 Assessment/Plan Assessment/Plan Pneumonia HCAP Last temp was 12/20 -- Pt is now requiring 100% oxygen via a -Abx increase to vanco merrem yesterday -Today's CXR questions lung abscess will obtain a CT of chest. COPD -SVNS, oxygen Adenocarcinoma of lung stage III s/p chemoradiation followed by adjuvant chemotherapy -Oncology is following Thrush -Diflucan radiation pneumonitis dx 1 month ago prednisone Afib RVR -cardiology following -Cardizem gtt 232 Clinical Quality Measures DVT/VTE Risk/Contraindication: Risk Factor Score Per Nursin RFS Level Per Nursing on Admit: 4+=Very High CELIA BARKSDALE DO Dec 25, 2016 11:41
[2016-12-25] MEDS: FLUCONAZOLE 100 MG/50 ML 50 ML IV SCH (11:52)
[2016-12-25 12:00] VITALS: BP 124/60
[2016-12-25] MEDS: FERROUS SULF 325 MG (IRON) TAB PO SCH (12:43)
[2016-12-25] MEDS ORDERED: NS 100 ML (IVPB) BAG IV ONE (13:15)
[2016-12-25] MEDS ORDERED: IOHEXOL 350 MG/ML 100 ML (OMNIPAQUE 350) VIAL IV ONE (13:15)
[2016-12-25 16:40] VITALS: BP 148/73
--- NOTE | 2016-12-25 17:17 | Diagnostic Imaging Report ---
PROCEDURE: CT chest with contrast only. TECHNIQUE: Multiple contiguous axial images were obtained through the chest after administration of intravenous contrast. INDICATION: Lucency in the right upper lobe adjacent to area of consolidation. Rule out abscess. 75 mL of Omnipaque 350 is administered intravenously. FINDINGS: There is patchy consolidation seen in the right upper lobe with air-filled cavity and septations seen. It is uncertain if this is related to an infection superimposed on area of bullous emphysema. There is no fluid level in it to suggest an abscess. The cavitary mass or infected cavity is not ruled out. No previous CT scan of the chest is available for comparison. There are groundglass opacities in the left lung and mild interstitial thickening which is nonspecific and could be related to infection, edema or less likely pulmonary hemorrhage. There is a moderate to large right pleural effusion and small left pleural effusion. Bibasilar atelectasis is seen. The heart size is normal. No pericardial effusion. The thoracic aorta is normal in caliber. There are mildly enlarged bilateral hilar and infracarinal lymph nodes slightly above a centimeter in size. The right internal jugular infusion port is seen with the tip at the upper SVC level. Sections in the upper abdomen demonstrate a ventral hernia containing nonobstructive bowel loops. The osseous structures demonstrate degenerative changes. IMPRESSION: 1. Patchy consolidation in the right upper lobe surrounding an air-filled central region associated with septations could relate to pneumonia involving pre-existing bulla rather than a cavitary infection or cavitary mass. There is no previous study, however, to compare and a followup exam in a few weeks is recommended. No significant fluid content to suggest an abscess. 2. Moderate to large effusion on the right side and small pleural effusion on the left. Dictated by: Dictated on workstation # [id number]
[2016-12-25 19:20] VITALS: BP 144/77
[2016-12-25] MEDS: DOCUSATE SODIUM 100 MG (COLACE) CAP PO PRN (20:40)
[2016-12-25] MEDS: AMITRIPTYLINE 50 MG (ELAVIL) TAB PO SCH (22:21)
[2016-12-25] MEDS: CYCLOBENZAPRINE 10 MG (FLEXERIL) TAB PO SCH (22:21)
[2016-12-26 00:20] VITALS: BP 140/62
[2016-12-26] MEDS: MEROPENEM 500 MG in NS (IVPB) 100 ML IV SCH ×4 (01:03→19:51)
[2016-12-26] MEDS: PROMETHAZINE/ CODEINE SYRUP 5 ML UDC PO PRN (01:04)
[2016-12-26] MEDS: RT-ALBUTEROL/IPRATROPIUM 3 ML (DUONEB) VIAL INH SCH ×6 (02:21→22:48)
[2016-12-26 03:28] VITALS: BP 150/68
[2016-12-26] MEDS: ENOXAPARIN 80 MG/0.8 ML (LOVENOX) SYR SC SCH (05:34)
[2016-12-26] MEDS: methylPREDNISolone 40 MG/ML (Solu-MEDROL) VIAL IV SCH ×4 (05:34→23:18)
[2016-12-26] MEDS: CATHETER FLUSH 10 ML SYR IV SCH ×3 (06:18→20:27)
[2016-12-26] MEDS: BENZONATATE 100 MG (TESSALON) CAPSULE PO SCH ×3 (07:54→21:48)
[2016-12-26] MEDS: NICOTINE 14 MG (NICODERM) PATCH TD SCH (07:54)
[2016-12-26 08:00] VITALS: BP 150/80
[2016-12-26] MEDS: VANCOMYCIN 1 GM/NS 250 ML IVPB IV SCH ×4 (08:54→20:27)
--- NOTE | 2016-12-26 08:56 | Pulmonary Progress Note ---
Subjective Time Seen by Provider: 08:56 Subjective/Events-last exam CT scan of chest reviewed. and labs reviewed. Exam Exam Vital Signs Date Time Temp Pulse Resp B/P (MAP) Pulse Ox O2 Delivery O2 Flow Rate FiO2 12/26/16 08:00 97.2 86 20 150/80 94 Vapotherm 100.00 20.00 12/26/16 07:35 91 Vapotherm 20.00 100 12/26/16 03:28 97.1 86 22 150/68 93 Vapotherm 100.00 20.00 12/26/16 02:21 96 Vapotherm 20.00 100 12/26/16 01:00 82 12/26/16 00:20 97.6 88 22 140/62 97 Vapotherm 100.00 20.00 12/25/16 22:22 94 Vapotherm 20.00 100 12/25/16 20:00 Vapotherm 15.00 12/25/16 19:20 97.8 79 22 144/77 95 Vapotherm 100.00 20.00 12/25/16 19:00 102 12/25/16 18:57 95 Vapotherm 20.00 100 12/25/16 16:40 98.1 98 22 148/73 91 Vapotherm 95.00 15.00 12/25/16 15:05 92 Vapotherm 20.00 100 12/25/16 13:19 95 12/25/16 12:00 98.2 94 20 124/60 94 Vapotherm 95.00 15.00 12/25/16 10:28 89 Vapotherm 20.00 100 General Appearance: WD/WN, Anxious, Chronically ill, Mild Distress Neck: Normal Inspection Respiratory: Accessory Muscle Use, Wheezing Cardiovascular: Regular Rate, Rhythm Capillary Refill: Less Than 3 Seconds Gastrointestinal: non tender, soft Extremity: Non Tender, No Calf Tenderness, Pedal Edema Neurologic/Psychiatric: Alert, Oriented x3, Normal Mood/Affect Skin: Ecchymosis (on right side of face) Lymphatic: No Adenopathy Results Lab Laboratory Tests 12/25/16 05:41 Assessment/Plan Assessment/Plan Pneumonia HCAP Last temp was 12/20 -- Pt is now requiring 100% oxygen via a -Abx increase to vanco merrem yesterday R> L pleural effusion -If ok with Dr. Morrison hold Lovenox and have Dr. Vallejo do thoracentesis tomorrow. -Hold lovenox last dose was today at 5am COPD -SVNS, oxygen Adenocarcinoma of lung stage III s/p chemoradiation followed by adjuvant chemotherapy -Oncology is following Thrush -Diflucan radiation pneumonitis dx 1 month ago prednisone Afib RVR -cardiology following -Cardizem gtt I discussed plan of care with patient, hospitalist, radiology, and pharmacy. 233 Clinical Quality Measures DVT/VTE Risk/Contraindication: Risk Factor Score Per Nursin RFS Level Per Nursing on Admit: 4+=Very High CELIA BARKSDALE DO Dec 26, 2016 08:55
[2016-12-26] MEDS: RAMIPRIL 2.5 MG (ALTACE) CAP PO SCH (09:09)
[2016-12-26] MEDS: CALCIUM CARB + VIT D 600 MG (CALCARB + D) TAB PO SCH ×2 (09:09→21:48)
[2016-12-26] MEDS: meTOprolol TARTRATE 25 MG (LOPRESSOR) TABLET PO SCH ×3 (09:10→21:48)
[2016-12-26] MEDS: LACTOBACILLUS Acidoph/Bulgar 1 GM (LACTINEX) PACKET PO SCH ×4 (09:10→21:47)
[2016-12-26] MEDS: IBUPROFEN TABLET 200 MG TAB PO SCH ×2 (09:10→18:51)
--- NOTE | 2016-12-26 11:14 | Physical Therapy Progress Note ---
Therapy Progress Note Attempted PT visit at 9 am, pt awaiting meds and requested to wait until later for PT. Returned at 11 am and pt had received a bath and had transferred to the chair, reports she if exhausted. Requested therapist to return this pm and she reports she will try to do leg exercises at that time. Will check pt later today. DURGA HAMILTON PT Dec 26, 2016 11:14
[2016-12-26 12:00] VITALS: BP 155/74
[2016-12-26] MEDS: FERROUS SULF 325 MG (IRON) TAB PO SCH (13:24)
--- NOTE | 2016-12-26 13:40 | Occupational Ther Daily Note ---
OT Current Status-Daily Note Subjective Pt alert, sitting in chair. Agrees to therapy but feels very tired. Mental Status/Objective Patient Orientation: Person, Place, Time, Situation Functional [place] Measure 0=Not Assessed/NA 4=Minimal Assistance 1=Total Assistance 5=Supervision or Setup 2=Maximal Assistance 6=Modified [place] 3=Moderate Assistance 7=Complete [place] Attachments: IV, Oxygen, Other-See Comments PICC Other Treatment Pt completed B UE AROM exercises against gravity to increase strength, AROM and activity tolerance. Pt completed scapular retraction, shldr flexion, shldr abd/ add, elbow flex/ext, wrist flex/ext, and finger flex/ext 1 set 5x. Pt tolerated well, feeling very fatigued after. After therapy, pt sitting in recliner with phone and call light in reach. All needs met in room. OT Short Term Goals Short Term Goals 1=Demonstrate adherence to instructed precautions during ADL tasks. 2=Patient will verbalize/demonstrate understanding of assistive devices/ modifications for ADL. 3=Patient will improve strength/tolerance for activity to enable patient to perform ADL's. OT Skilled Nursing Goals Skilled Nursing Goals Time Frame: Jan 05, 2017 Eating (FIM): 6 Grooming(FIM): 6 Bathing(FIM): 5 Upper Body Dressing(FIM): 5 Lower Body Dressing(FIM): 5 Toileting(FIM): 6 Toilet/Commode Transfer(FIM): 6 Shower Transfer(FIM): 5 1=Demonstrate adherence to instructed precautions during ADL tasks. 2=Patient will verbalize/demonstrate understanding of assistive devices/ modifications for ADL. 3=Patient will improve strength/tolerance for activity to enable patient to perform ADL's. OT Education/Plan Problem List/Assessment Pt would benefit from skilled OT to increase her independence in basic self care to allow her to safely return to her home and decrease caregiver burden Discharge Recommendations Plan/Recommendations: Continue POC Treatment Plan/Plan of Care Patient would benefit from OT for education, treatment and training to promote independence in ADL's, mobility, safety and/or upper extremity function for ADL' s. Plan of Care: ADL Retraining, UE Funct Exercise/Act, OTHER (energy conservation education) Treatment Duration: Jan 05, 2017 Frequency: 5 times per week Estimated Hrs Per Day: .5 hour per day Agreement: Yes Rehab Potential: Guarded Time/GCodes Start Time: 13:24 Stop Time: 13:34 Total Time Billed (hr/min): 10 Billed Treatment Time 1 visit, EX 1 (10 minutes) DURGA FAGAN Dec 26, 2016 13:40
--- NOTE | 2016-12-26 13:45 | Physical Therapy Progress Note ---
Therapy Progress Note PT visit attempt. Pt declined, "I just dont have the umph". Pt requested for PT to try to see her first thing tomorrow. DURGA HAMILTON PT Dec 26, 2016 13:45
--- NOTE | 2016-12-26 14:46 | Progress Note-Hospitalist ---
Standard Progress Note Progress Notes/Assess & Plan Date Seen 12/26/16 Time Seen by Provider: 14:41 Diagnosis Adenocarcinoma of the right lung. 2.pneumonitis/pneumonia right lung. 3.COPD Assess & Plan/Chief Complaint The patient reports that she feels relatively the same from the pulmonary status. She has not had a bowel movement since the seventh and this is making her uncomfortable. She has misgivings about use of MiraLAX because the one time that she took it she had quite a Crampy episode. Given the other possibility she is elected to give it a try again. Physical exam: She appears comfortable in the bedside chair. Lungs show distant breath sounds and dullness throughout. CV is regular. Impression: Adenocarcinoma of the lung. 2.increasing pleural effusions. 3.constipation. Plans for placement of a Pleur-evac. 2.MiraLAX for constipation. 3.continue antibiotics at this time. Labs Laboratory Tests 12/25/16 05:41 Diagnosis/Problems Diagnosis/Problems (1) Pneumonia involving right lung Status: Acute Assessment & Plan: Had worsening oxygen requirements yesterday throughout day but have been improving today - will continue Lasix Diagnosed with radiation pneumonitis recently- cont IV steroids On Levaquin, Vanc, Meropenem Follows with Dr. Bermeo for oncology Cont promethazine/codeine cough syrup along with tessalon Vapotherm MAT protocol Qualifiers: Qualified Codes: J18.1 - Lobar pneumonia, unspecified organism (2) COPD (chronic obstructive pulmonary disease) Status: Chronic Assessment & Plan: Some wheezing again today Continue IV steroids Continue Vapotherm, Duonebs, MAT Protocol Qualifiers: Qualified Codes: J44.1 - Chronic obstructive pulmonary disease with (acute) exacerbation (3) Adenocarcinoma of lung Assessment & Plan: Follows with Dr. Bermeo, receives radiation and chemotherapy Holding chemo per Jean-Claude's recs (4) Normocytic anemia Status: Chronic Assessment & Plan: Baseline anemia, slight drop today - If further drop tomorrow will likely need tranfusion Will continue to trend blood counts and check blood conservatively (5) Atrial fibrillation Assessment & Plan: Paroxysmal Was in a-fib with RVR 12/19, never necessitated cardizem gtt Cardiology consulted, appreciate recs Continue oral Cardizem and metoprolol as well Lovenox for anticoagulation- consider switch to warfarin (6) Intractable nausea and vomiting Status: Resolved Assessment & Plan: Improved with Phenergan and Zofran Tolerating PO now (7) Prophylactic measure Assessment & Plan: Therapeutic Lovenox for a fib, no further dvt ppx Saline lock NATHALIE PATRICIA MD Dec 26, 2016 14:46
[2016-12-26 16:00] VITALS: BP 146/77
[2016-12-26 19:50] VITALS: BP 156/80
[2016-12-26] MEDS: POLYETHYLENE GLYCOL 17 GM (MIRALAX) PACK PO SCH (21:47)
[2016-12-26] MEDS: AMITRIPTYLINE 50 MG (ELAVIL) TAB PO SCH (21:48)
[2016-12-26] MEDS: CYCLOBENZAPRINE 10 MG (FLEXERIL) TAB PO SCH (21:48)
[2016-12-27 00:59] VITALS: BP 163/73
[2016-12-27] MEDS: MEROPENEM 500 MG in NS (IVPB) 100 ML IV SCH ×4 (01:42→19:50)
[2016-12-27] MEDS: RT-ALBUTEROL/IPRATROPIUM 3 ML (DUONEB) VIAL INH SCH ×6 (02:50→21:37)
[2016-12-27 04:00] VITALS: BP 182/76
[2016-12-27] MEDS: CATHETER FLUSH 10 ML SYR IV SCH ×3 (06:20→22:17)
[2016-12-27] MEDS: methylPREDNISolone 40 MG/ML (Solu-MEDROL) VIAL IV SCH ×4 (06:20→23:39)
--- NOTE | 2016-12-27 07:36 | Pulmonary Progress Note ---
Subjective Time Seen by Provider: 07:35 Subjective/Events-last exam PT is still requiring 80% oxygen via high flow. Pt is scheduled for thoracentesis per radiology today. Exam Exam Vital Signs Date Time Temp Pulse Resp B/P (MAP) Pulse Ox O2 Delivery O2 Flow Rate FiO2 12/27/16 06:35 84 87 80 12/27/16 06:35 87 Vapotherm 15.00 80 12/27/16 04:00 97.8 94 22 182/76 91 Vapotherm 80.00 15.00 12/27/16 02:50 90 Vapotherm 15.00 80 12/27/16 01:00 70 12/27/16 00:59 98.0 85 20 163/73 94 Vapotherm 80.00 15.00 12/26/16 22:48 91 Vapotherm 15.00 80 12/26/16 20:30 Vapotherm 15.00 12/26/16 19:50 97.5 83 21 156/80 94 Vapotherm 80.00 20.00 12/26/16 19:00 99 12/26/16 16:00 97.1 80 22 146/77 93 Vapotherm 80.00 20.00 12/26/16 14:27 86 12/26/16 14:19 90 Vapotherm 15.00 80 12/26/16 12:00 97.3 87 20 155/74 71 Vapotherm 80.00 20.00 12/26/16 10:36 97 Vapotherm 20.00 100 12/26/16 08:15 Vapotherm 15.00 12/26/16 08:00 97.2 86 20 150/80 94 Vapotherm 100.00 20.00 12/26/16 07:40 69 12/26/16 07:35 91 Vapotherm 20.00 100 General Appearance: WD/WN, Anxious, Chronically ill, Mild Distress Neck: Normal Inspection Respiratory: Accessory Muscle Use, Wheezing Cardiovascular: Regular Rate, Rhythm Capillary Refill: Less Than 3 Seconds Gastrointestinal: non tender, soft Extremity: Non Tender, No Calf Tenderness, Pedal Edema Neurologic/Psychiatric: Alert, Oriented x3, Normal Mood/Affect Skin: Ecchymosis (on right side of face) Lymphatic: No Adenopathy Assessment/Plan Assessment/Plan Pneumonia HCAP Last temp was 12/20 -- Pt is now requiring 100% oxygen via a - vanco merrem R> L pleural effusion -If ok with Dr. Morrison hold Lovenox and have Dr. Vallejo do thoracentesis today. -Hold lovenox last dose was today at 5am yesterday COPD -SVNS, oxygen Adenocarcinoma of lung stage III s/p chemoradiation followed by adjuvant chemotherapy -Oncology is following Thrush -Diflucan radiation pneumonitis dx 1 month ago solumedrol 40 IV Q 6 Afib RVR -cardiology following -Cardizem gtt 233 Clinical Quality Measures DVT/VTE Risk/Contraindication: Risk Factor Score Per Nursin RFS Level Per Nursing on Admit: 4+=Very High CELIA BARKSDALE DO Dec 27, 2016 07:36
[2016-12-27] MEDS: LACTOBACILLUS Acidoph/Bulgar 1 GM (LACTINEX) PACKET PO SCH ×4 (07:41→21:19)
[2016-12-27 07:59] VITALS: BP 159/69
[2016-12-27] MEDS ORDERED: LIDOCAINE 1% INJ 20 ML (XYLOCAINE) VIAL ONE (09:02)
[2016-12-27] MEDS ORDERED: LIDOCAINE 1% INJ 20 ML (XYLOCAINE) VIAL INJ NR (09:11)
--- NOTE | 2016-12-27 09:54 | Physical Therapy Progress Note ---
Therapy Progress Note PT attempted visit for treatment, however, patient declined due to "I've had a bad night and I'm too tired. I am having a thoracentesis this morning." PT will resume in a.m. Patient agrees. 1 visit ref JEANNE BANDA PT Dec 27, 2016 09:54
[2016-12-27] MEDS: VANCOMYCIN 1 GM/NS 250 ML IVPB IV SCH ×4 (10:32→21:19)
[2016-12-27] MEDS: NICOTINE 14 MG (NICODERM) PATCH TD SCH (10:32)
[2016-12-27 10:40] LABS: GLUCOSE,BODY FLUID 195 MG/DL; LDH,BODY FLUID 247 U/L; TOTAL PROTEIN,BODY FLUID 2.2 G/DL
[2016-12-27] MEDS: IBUPROFEN TABLET 200 MG TAB PO SCH ×2 (10:43→17:20)
[2016-12-27] MEDS: BENZONATATE 100 MG (TESSALON) CAPSULE PO SCH ×3 (10:44→21:19)
[2016-12-27] MEDS: CALCIUM CARB + VIT D 600 MG (CALCARB + D) TAB PO SCH ×2 (10:44→21:19)
[2016-12-27] MEDS: fluCOnazole (DIFLUCAN) 100 MG TAB PO SCH (10:44)
[2016-12-27] MEDS: RAMIPRIL 2.5 MG (ALTACE) CAP PO SCH (10:44)
[2016-12-27] MEDS: FUROSEMIDE 20 MG (LASIX) TAB PO SCH (10:44)
[2016-12-27] MEDS: meTOprolol TARTRATE 25 MG (LOPRESSOR) TABLET PO SCH ×3 (10:44→21:19)
[2016-12-27] MEDS: POLYETHYLENE GLYCOL 17 GM (MIRALAX) PACK PO SCH ×2 (10:46→21:20)
--- NOTE | 2016-12-27 11:01 | Diagnostic Imaging Report ---
EXAMINATION: Ultrasound guided thoracentesis. INDICATION: Large right side effusion. CONSENT: Informed consent was obtained from the patient. The risks, benefits, potential complications and alternatives were reviewed and all questions answered to the patient's satisfaction. FINDINGS: Simple appearing large effusion on the right side. PROCEDURE: After sterile preparation and draping, 1% lidocaine was utilized for local anesthesia. An appropriate intercostal approach is selected based on preliminary scanning with ultrasound. Under live visualization with ultrasound, 6.5 [place] drainage catheter is introduced with trocar technique into the right pleural space. Image of proper location of the needle is documented. The needle is removed and the sheath is left in the pleural space. A total of 0.9 L of serous thin yellow fluid is drained. The sheath is removed at the end of the drainage procedure. The fluid is sent to the lab for analysis. The patient tolerated the procedure well with no immediate complications. IMPRESSION: Successful ultrasound-guided right thoracentesis. Dictated by: Dictated on workstation # [id number]
[2016-12-27 12:00] VITALS: BP 143/68
[2016-12-27] MEDS: FERROUS SULF 325 MG (IRON) TAB PO SCH (13:16)
--- NOTE | 2016-12-27 13:35 | Occupational Ther Daily Note ---
OT Current Status-Daily Note Subjective Pt agreed to therapy. Pt stated that she hasn't got much rest at night and she is tired, but will try to do a few arm exercises. Pt stated that she had decreased pressure after her procedure this am. Mental Status/Objective Patient Orientation: Person, Place, Time, Situation Functional [place] Measure 0=Not Assessed/NA 4=Minimal Assistance 1=Total Assistance 5=Supervision or Setup 2=Maximal Assistance 6=Modified [place] 3=Moderate Assistance 7=Complete [place] Attachments: Rodriguez Catheter, IV, Oxygen, Other-See Comments (PICC) Other Treatment Pt completed 2 UE exercises without resistance, 3 sets 5 reps. Pt took increased time between sets for recovery breaks. Fair AROM though due to fatigue did not complete full ROM. Pt declined to complete any further exercises due to decreased activity tolerance. Nrsg present in room during OT session. After therapy, pt sitting in recliner with call light/phone in reach. All needs met in room. OT Short Term Goals Short Term Goals 1=Demonstrate adherence to instructed precautions during ADL tasks. 2=Patient will verbalize/demonstrate understanding of assistive devices/ modifications for ADL. 3=Patient will improve strength/tolerance for activity to enable patient to perform ADL's. OT Care Home Goals [employer] Goals Time Frame: Jan 05, 2017 Eating (FIM): 6 Grooming(FIM): 6 Bathing(FIM): 5 Upper Body Dressing(FIM): 5 Lower Body Dressing(FIM): 5 Toileting(FIM): 6 Toilet/Commode Transfer(FIM): 6 Shower Transfer(FIM): 5 1=Demonstrate adherence to instructed precautions during ADL tasks. 2=Patient will verbalize/demonstrate understanding of assistive devices/ modifications for ADL. 3=Patient will improve strength/tolerance for activity to enable patient to perform ADL's. OT Education/Plan Problem List/Assessment Pt would benefit from skilled OT to increase her independence in basic self care to allow her to safely return to her home and decrease caregiver burden Discharge Recommendations Plan/Recommendations: Continue POC Treatment Plan/Plan of Care Patient would benefit from OT for education, treatment and training to promote independence in ADL's, mobility, safety and/or upper extremity function for ADL' s. Plan of Care: ADL Retraining, UE Funct Exercise/Act, OTHER (energy conservation education) Treatment Duration: Jan 05, 2017 Frequency: 5 times per week Estimated Hrs Per Day: .5 hour per day Agreement: Yes Rehab Potential: Guarded Time/GCodes Start Time: 13:10 Stop Time: 13:25 Total Time Billed (hr/min): 15 Billed Treatment Time 1 visit-EX 1 (15 min) DURGA FAGAN Dec 27, 2016 13:35
--- NOTE | 2016-12-27 15:36 | Progress Note-Hospitalist ---
Standard Progress Note Progress Notes/Assess & Plan Date Seen 12/27/16 Time Seen by Provider: 15:31 Diagnosis Adenocarcinoma of the right lung. 2.pneumonitis/pneumonia right lung. 3.COPD Assess & Plan/Chief Complaint The patient had a thoracentesis this morning which produced 900 MLS of pleural fluid. She reports that she feels and is breathing much better today post thoracentesis. There was pain at the beginning but overall not as much as she anticipated. Physical exam: She is sitting comfortably at the bedside. Lungs show distant breath sounds but are clear. CV is irregular. The arms and legs appeared to show some edema and she feels this is so as well. Impression: Adenocarcinoma of the right lung. 2.pneumonitis/pneumonia right lung. 3.pleural effusion right lung. 4.COPD. Plan: Continue present medications. Adjust O2 as required. Consider additional furosemide. Cosleep Diagnosis/Problems Diagnosis/Problems (1) Pneumonia involving right lung Status: Acute Assessment & Plan: Had worsening oxygen requirements yesterday throughout day but have been improving today - will continue Lasix Diagnosed with radiation pneumonitis recently- cont IV steroids On Levaquin, Vanc, Meropenem Follows with Dr. Bremeo for oncology Cont promethazine/codeine cough syrup along with tessalon Vapotherm MAT protocol Qualifiers: Qualified Codes: J18.1 - Lobar pneumonia, unspecified organism (2) COPD (chronic obstructive pulmonary disease) Status: Chronic Assessment & Plan: Some wheezing again today Continue IV steroids Continue Vapotherm, Duonebs, MAT Protocol Qualifiers: Qualified Codes: J44.1 - Chronic obstructive pulmonary disease with (acute) exacerbation (3) Adenocarcinoma of lung Assessment & Plan: Follows with Dr. Bermeo, receives radiation and chemotherapy Holding chemo per Jean-Claude's recs (4) Normocytic anemia Status: Chronic Assessment & Plan: Baseline anemia, slight drop today - If further drop tomorrow will likely need tranfusion Will continue to trend blood counts and check blood conservatively (5) Atrial fibrillation Assessment & Plan: Paroxysmal Was in a-fib with RVR 12/19, never necessitated cardizem gtt Cardiology consulted, appreciate recs Continue oral Cardizem and metoprolol as well Lovenox for anticoagulation- consider switch to warfarin (6) Intractable nausea and vomiting Status: Resolved Assessment & Plan: Improved with Phenergan and Zofran Tolerating PO now (7) Prophylactic measure Assessment & Plan: Therapeutic Lovenox for a fib, no further dvt ppx Saline lock NATHALIE PATRICIA MD Dec 27, 2016 15:36
[2016-12-27] MEDS ORDERED: FUROSEMIDE 40 MG/4 ML INJ (LASIX) IVP NR (15:45)
[2016-12-27 16:00] VITALS: BP 135/65
[2016-12-27] MEDS: ENOXAPARIN 80 MG/0.8 ML (LOVENOX) SYR SC SCH (17:19)
[2016-12-27 20:00] VITALS: BP 139/65
[2016-12-27] MEDS: CYCLOBENZAPRINE 10 MG (FLEXERIL) TAB PO SCH (22:17)
[2016-12-27] MEDS: AMITRIPTYLINE 50 MG (ELAVIL) TAB PO SCH (22:17)
[2016-12-28] VITALS: BP 139/63
[2016-12-28] MEDS: MEROPENEM 500 MG in NS (IVPB) 100 ML IV SCH (01:15)
[2016-12-28] MEDS: RT-ALBUTEROL/IPRATROPIUM 3 ML (DUONEB) VIAL INH SCH ×2 (03:10→07:48)
[2016-12-28 04:25] VITALS: BP 139/73
[2016-12-28] MEDS: methylPREDNISolone 40 MG/ML (Solu-MEDROL) VIAL IV SCH (05:20)
[2016-12-28] MEDS: ENOXAPARIN 80 MG/0.8 ML (LOVENOX) SYR SC SCH (05:20)
--- NOTE | 2016-12-28 06:19 | Pulmonary Progress Note ---
Subjective Time Seen by Provider: 06:17 Exam Exam Vital Signs Date Time Temp Pulse Resp B/P (MAP) Pulse Ox O2 Delivery O2 Flow Rate FiO2 12/28/16 03:12 91 Vapotherm 10.00 65 12/28/16 01:00 73 12/27/16 21:37 93 Vapotherm 12.00 70 12/27/16 20:00 97.8 89 20 139/65 97 Vapotherm 80.00 15.00 12/27/16 20:00 Vapotherm 15.00 12/27/16 19:00 85 12/27/16 16:00 98.6 77 22 135/65 94 Vapotherm 80.00 15.00 12/27/16 14:39 96 Vapotherm 18.00 80 12/27/16 13:28 75 12/27/16 12:00 98.2 71 28 143/68 99 Vapotherm 80.00 15.00 12/27/16 08:30 Vapotherm 15.00 12/27/16 07:59 97.8 86 32 159/69 93 Vapotherm 80.00 15.00 12/27/16 07:00 78 12/27/16 06:35 84 87 80 12/27/16 06:35 87 Vapotherm 15.00 80 General Appearance: WD/WN, Anxious, Chronically ill, Mild Distress Neck: Normal Inspection Respiratory: Accessory Muscle Use, Wheezing Cardiovascular: Regular Rate, Rhythm Capillary Refill: Less Than 3 Seconds Gastrointestinal: non tender, soft Extremity: Non Tender, No Calf Tenderness, Pedal Edema Neurologic/Psychiatric: Alert, Oriented x3, Normal Mood/Affect Skin: Ecchymosis (on right side of face) Lymphatic: No Adenopathy Assessment/Plan Assessment/Plan Pneumonia HCAP Last temp was 12/20 -- Pt is now requiring 100% oxygen via a - vanco merrem R> L pleural effusion s/p pleural effusion per Dr. Yoni hernández was restarted COPD -SVNS, oxygen Adenocarcinoma of lung stage III s/p chemoradiation followed by adjuvant chemotherapy -Oncology is following Thrush -Diflucan radiation pneumonitis dx 1 month ago solumedrol 40 IV Q 6 --- decrease to Q12 Afib RVR -cardiology following -Cardizem gtt 233 Clinical Quality Measures DVT/VTE Risk/Contraindication: Risk Factor Score Per Nursin RFS Level Per Nursing on Admit: 4+=Very High CELIA BARKSDALE DO Dec 28, 2016 06:19
[2016-12-28] MEDS: CATHETER FLUSH 10 ML SYR IV SCH (06:58)
[2016-12-28] MEDS: NICOTINE 14 MG (NICODERM) PATCH TD SCH (08:14)
[2016-12-28] MEDS: meTOprolol TARTRATE 25 MG (LOPRESSOR) TABLET PO SCH (08:15)
[2016-12-28] MEDS: BENZONATATE 100 MG (TESSALON) CAPSULE PO SCH (08:15)
[2016-12-28] MEDS: FUROSEMIDE 20 MG (LASIX) TAB PO SCH (08:15)
[2016-12-28] MEDS: RAMIPRIL 2.5 MG (ALTACE) CAP PO SCH (08:15)
[2016-12-28] MEDS: CALCIUM CARB + VIT D 600 MG (CALCARB + D) TAB PO SCH (08:16)
[2016-12-28] MEDS: fluCOnazole (DIFLUCAN) 100 MG TAB PO SCH (08:19)
[2016-12-28 08:30] VITALS: BP 139/63
[2016-12-28] MEDS: IBUPROFEN TABLET 200 MG TAB PO SCH (08:39)
[2016-12-28] MEDS: LACTOBACILLUS Acidoph/Bulgar 1 GM (LACTINEX) PACKET PO SCH (08:39)
[2016-12-28] MEDS ORDERED: methylPREDNISolone 40 MG/ML (Solu-MEDROL) VIAL IV SCH (09:00)
--- NOTE | 2016-12-28 09:55 | Diagnostic Imaging Report ---
Upright portable radiograph of the chest. COMPARISON: 12/25/2016. INDICATION: Pneumonia. FINDINGS: There is right upper lobe infiltrate with suggestion of a cavity similar to 12/25/2016. There is increasing left suprahilar predominantly interstitial infiltrate and small/ moderate effusion on the left increased from the prior study with an adjacent left basilar opacity, presumably related to atelectasis. Stable mild atelectasis or infiltrate in the right lung base and small effusion is again seen. The heart size is mildly enlarged. Infusion port through the right IJ vein is again seen without change. IMPRESSION: 1. Increased left suprahilar infiltrate and left pleural effusion. 2. Stable infiltrates in the right upper lobe with associated cavity. Dictated by: Dictated on workstation # [id number]
--- NOTE | 2016-12-28 10:37 | Physical Therapy Daily Note ---
PT Daily Note-Current Subjective Patient agrees to PT. She states she is feeling better. Pain Numeric Pain Scale: 0-No Pain Location: No Pain Reported Mental Status Patient Orientation: Normal For Age Attachments: Oxygen (vapotherm) Transfers Functional [place] Measure 0=Not Assessed/NA 4=Minimal Assistance 1=Total Assistance 5=Supervision or Setup 2=Maximal Assistance 6=Modified [place] 3=Moderate Assistance 7=Complete IndependenceIRFPAI Quality Coding Scale 6 Independent with activity with or without an assistive device 5 Patient requires set up or clean up by helper. Patient completes activity by themselves 4 Supervision or touching assist (CGA). [place] provide cues , steadying assist 3 The helper provides less than half the effort to complete the activity 2 The helper provides more than half the effort to complete the activity 1 Dependent. The helper does all the effort to complete an activity 7 Patient refused to complete or attempt activity 9 The patient did not perform the activity before the current illness or injury 88 Not attempted due to Medical conditions or safety concerns Transfers (B, C, W/C) (FIM): 6 Scootin Rollin Supine to/from Sit: 6 Sit to/from Stand: 6 Bed to/from Chair: 6 Gait Training Gait (FIM): 1 Distance (FIM): 1=up to 49 ft Distance: 5' x 2 Gait Level of Assist: 5 Gait Assistive Device: FWW functional Exercises Supine Ex: Ankle pumps, Quad Set, Heel Slides Supine Reps: 15 Seated Therapy Exercises: Ankle pumps, Long arc quads Seated Reps: 10 Assessment Current Status: Good Progress Patient tolerated treatment well and is improved with SOA. PT to increase activity as tolerated by patient. PT Prison Goals Prison Goals PT Buyer Internship Goals Time Frame: Jan 05, 2017 Transfers (B,C,W/C) (FIM): 6 Gait (FIM): 2 Gait distance (FIM): 3=588-09 ft Distance: 75' Gait Level of Assist: 6 Gait Assistive Device: FWW PT Plan Treatment/Plan Treatment Plan: Continue Plan of Care Treatment Plan: Education, Functional Activity Silvana, Functional Strength, Gait , Safety, Therapeutic Exercise, Transfers Treatment Duration: Jan 05, 2017 Frequency: 6 times per week Estimated Hrs Per Day: .25 hour per day Patient and/or Family Agrees t: Yes Time/GCodes Time In: 925 Time Out: 935 Total Billed Treatment Time: 10 Total Billed Treatment 1 visit EX 10 min JEANNE BANDA PT Dec 28, 2016 10:37
[2016-12-28] MEDS ORDERED: RT-ALBUTEROL/IPRATROPIUM 3 ML (DUONEB) VIAL ONE (11:09)
== END 2016-12-28 11:01 | disposition swing bed (61) | DRG 190 ==
LOC: EDUNIT# 21:48 → ER 21:50 → 4TH 12-19 01:00 → ICU 12-19 16:32 → 4TH 12-20 16:30
PROVIDERS: ADMIT Internal Medicine Hematology & Oncology; ATTEND Internal Medicine Hematology & Oncology
PROC: 0W993ZX Drainage of Right Pleural Cavity, Percutaneous Approach, Diagnostic (ICD-10-PCS; principal; 2016-12-27)
DX: J44.0 Chronic obstructive pulmonary disease with (acute) lower respiratory infection (principal); J18.9 Pneumonia, unspecified organism; C34.2 Malignant neoplasm of middle lobe, bronchus or lung; C77.1 Secondary and unspecified malignant neoplasm of intrathoracic lymph nodes; B37.0 Candidal stomatitis; J90 Pleural effusion, not elsewhere classified; J44.1 Chronic obstructive pulmonary disease with (acute) exacerbation; Z66 Do not resuscitate; I48.0 Paroxysmal atrial fibrillation; D64.9 Anemia, unspecified; I49.1 Atrial premature depolarization; I10 Essential (primary) hypertension; E78.00 Pure hypercholesterolemia, unspecified; F17.210 Nicotine dependence, cigarettes, uncomplicated; F32.9 Major depressive disorder, single episode, unspecified; N39.3 Stress incontinence (female) (male); R11.2 Nausea with vomiting, unspecified; K59.00 Constipation, unspecified; Z79.899 Other long term (current) drug therapy; Z79.52 Long term (current) use of systemic steroids; Z90.81 Acquired absence of spleen; Z90.49 Acquired absence of other specified parts of digestive tract
CPT/HCPCS: 32555; 36415; 71010; 71020; 71260; 80048; 80053; 80202; 82945; 83605; 83615; 83735; 83880; 84100; 84157; 84443; 85025; 85610; 85730; 87040; 87070; 87205; 87798; 89051; 93005; 93041; 93306; 94640; 94664; 94760; 96365; 96375

== ENCOUNTER 2016-12-28 11:06 | Inpatient (IN) | payer MEDICARE ==
[~2016-12-28] VITALS: Ht 160 cm; Wt 78.0 kg
[~2016-12-28 11:06] MED LIST changes: +CA C1TAB75 PO; +CYCL10TA9 PO; +DOCU-143 PO; +FLUT1AER IH
[2016-12-28] MEDS ORDERED: ACETAMINOPHEN 325 MG TABLET/CAPLET (TYLENOL) PO PRN (11:22)
[2016-12-28] MEDS ORDERED: HYDROcodone/APAP 5 MG/325 MG (LORTAB) TAB PO PRN (11:22)
[2016-12-28] MEDS ORDERED: DOCUSATE SODIUM 100 MG (COLACE) CAP PO PRN (11:22)
[2016-12-28] MEDS ORDERED: PROMETHAZINE INJ 25 MG/ML (PHENERGAN) AMP IVP PRN (11:22)
[2016-12-28] MEDS ORDERED: morphine INJ 4 MG/ML 1 ML (VIAL/SYRINGE) IV PRN (11:22)
[2016-12-28] MEDS ORDERED: IBUPROFEN TABLET 200 MG TAB PO SCH (11:22)
[2016-12-28] MEDS ORDERED: VANCOMYCIN 1 GM/NS 250 ML IVPB IV SCH ×2 (11:22)
[2016-12-28] MEDS ORDERED: ENOXAPARIN 80 MG/0.8 ML (LOVENOX) SYR SC SCH ×2 (11:22→18:00)
[2016-12-28] MEDS ORDERED: ONDANSETRON 4 MG/2 ML (SDV) Z0FRAN IVP PRN (11:22)
[2016-12-28] MEDS: MEROPENEM 500 MG in NS (IVPB) 100 ML IV SCH ×3 (11:40→23:19)
[2016-12-28] MEDS: VANCOMYCIN 1 GM/NS 250 ML IVPB IV SCH ×4 (11:41→19:56)
[2016-12-28] MEDS: RT-ALBUTEROL/IPRATROPIUM 3 ML (DUONEB) VIAL INH SCH ×3 (11:45→20:52)
[2016-12-28] MEDS: FERROUS SULF 325 MG (IRON) TAB PO SCH (12:07)
[2016-12-28] MEDS: meTOprolol TARTRATE 25 MG (LOPRESSOR) TABLET PO SCH ×2 (12:07→19:58)
[2016-12-28] MEDS: BENZONATATE 100 MG (TESSALON) CAPSULE PO SCH ×2 (12:08→19:58)
--- NOTE | 2016-12-28 13:37 | Physical Therapy Evaluation ---
PT Evaluation-General Medical Diagnosis Admission Date Dec 28, 2016 at 11:06 Medical Diagnosis: pneumonia/lung cancer Onset Date: Dec 19, 2016 Therapy Diagnosis Therapy Diagnosis: debility Height/Weight Height (Feet): 5 Height (Inches): 3.00 Weight (Pounds): 165 Weight (Ounces): 0.0 Precautions Precautions/Isolations: Standard Precautions Referral Physician: Prince Reason for Referral: Evaluation/Treatment Medical History Pertinent Medical History: Atrial Fib, COPD, HTN, Smoking Additional Medical History congenital facial hemangioma Current History diagnosed with lung cancer with mets to sternum Reviewed History: Yes Social History Home: Single Level Current Living Status: Alone Prior/Core FIM Prior Level of Function Functional [place] Measure 0=Not Assessed/NA 4=Minimal Assistance 1=Total Assistance 5=Supervision or Setup 2=Maximal Assistance 6=Modified [place] 3=Moderate Assistance 7=Complete [place] Bed Mobility: 7 Transfers (B,C,W/C) (FIM): 7 Gait: 7 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 Pain Numeric Pain Scale: 0-No Pain Location: No Pain Reported Objective Patient Orientation: Normal For Age Problem Solving: Good Attachments: Oxygen (vapotherm 65% 10L), Rodriguez Catheter, IV ROM/Strength ROM Lower Extremities bilateral LE WNL Strenght Lower Extremities bilateral LE 3+/5 grossly Integumentary/Posture Integumentary refer to nursing notes Bowel Incontinence: No Bladder Incontinence: Rodriguez Cath Posture WNL Neuromuscular (Tone, Coordination, Reflexes) grossly intact Sensory Vision: Wears Glasses Hearing: Functional Sensation Right Lower Extremit: Intact Sensation Left Lower Extremity: Intact Transfers Functional [place] Measure 0=Not Assessed/NA 4=Minimal Assistance 1=Total Assistance 5=Supervision or Setup 2=Maximal Assistance 6=Modified [place] 3=Moderate Assistance 7=Complete [place] Transfers (B, C, W/C) (FIM): 5 Scootin Rollin Supine to/from Sit: 6 Sit to/from Stand: 5 Sit to Lying (QC): 4 Lying to Sitting/Side of Bed(Q: 4 Sit to Stand (QC): 4 Chair/Xag-fx-Tnuij Xfer(QC): 4 Gait Does the Patient Walk?: Yes Mode of Locomotion: Walk Anticipated Mode of Locomotion: Walk Gait (FIM): 1 Distance (FIM): 1=up to 49 ft Distance: 5' x 2 Walk 50 ft with 2 Turns(QC): 88 Walk 150 ft (QC): 88 Gait Level of Assist: 5 Gait Assistive Device: FWW Comments/Gait Description functional gait sequence/limited secondary to SOA Balance Sitting Static: Normal Sitting Dynamic: Normal Standing Static: Normal Standing Dynamic: Normal Treatment bilateral LE exercises in sit and stand 15 reps each seated AP, LAQ; standing marching, toe raises patient requires recovery periods between sets due to SOA Assessment/Needs 66 y.o. female, will benefit from skilled PT to address functional strength and mobility to improve current LOF and to safely return to home with assistance of friends. Rehab Potential: Guarded Post Rehab Potential-Barriers: metastatic lung cancer PT Jail Goals Scouring Train Operator Goals PT Jail Goals Time Frame: Jan 12, 2017 Transfers (B,C,W/C) (FIM): 6 Sit to Lying (QC): 5 Lying-Sitting on Side/Bed(QC): 5 Sit to Stand (QC): 5 Rollin Chair/Nbf-ha-Safth Xfer(QC): 5 Does the Patient Walk: Yes Gait (FIM): 2 Gait distance (FIM): 8=329-46 ft Distance: 125' Walk 50ft with 2 Turns (QC): 5 Walk 150 ft (QC): 5 Gait Level of Assist: 6 Gait Assistive Device: FWW PT Plan Problem List Problem List: Activity Tolerance, Gait Treatment/Plan Treatment Plan: Continue Plan of Care Treatment Plan: Education, Functional Activity Silvana, Functional Strength, Gait , Safety, Therapeutic Exercise, Transfers Treatment Duration: Jan 12, 2017 Frequency: 6 times per week Estimated Hrs Per Day: .5 hour per day (or PRN) Patient and/or Family Agrees t: Yes Safety Risks/Education Patient Education: Safety Issues Teaching Recipient: Patient Teaching Methods: Discussion Response to Teaching: Verbalize Understanding Discharge Recommendations Therapy D/C Recommendations: Home w/ Family Support Equpiment Recommendations-D/C: Front Wheeled Walker Time/GCodes Time In: 1230 Time Out: 1255 Total Billed Treatment Time: 25 Total Billed Treatment 1 visit EVLowC 10 min EX 15 min JEANNE BANDA PT Dec 28, 2016 13:37
--- NOTE | 2016-12-28 14:31 | Occupational Therapy Eval ---
OT Evaluation-General/PLF Medical Diagnosis Admission Date Dec 28, 2016 at 11:06 Medical Diagnosis: pneumonia/lung cancer Onset Date: Dec 19, 2016 Therapy Diagnosis Therapy Diagnosis: decr self care, weakness, decr activity tolerance Height/Weight Height (Feet): 5 Height (Inches): 3.00 Weight (Pounds): 165 Weight (Ounces): 0.0 Precautions Precautions/Isolations: Standard Precautions Safety Interventions: None Referral Physician: Prince Referral Reason: Evaluation/Treatment Medical History Pertinent Medical History: Atrial Fib, COPD, HTN, Smoking Additional Medical History Facial surgery x 3 for congenital hemangioma, laminectomy. Colon resection. Stress incontinence. Hx c diff. Loss of vision bilat. Depression. Lung CA May 2016, with chemo and radiation Current History Admitted through ED with R lung pain. Had thoracocentesis on 12-27-16 and said breathing is better. 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 Pain reported 0/10. Appearance Alert, cooperative Mental Status/Objective Attachments: Rodriguez Catheter, IV, Other-See Comments (vapotherm 65%, 10L) Current Glasses/Contacts: Yes Hearing Aids: No Dentures/Partials: No Hand Dominance: Right Upper Extremity ROM Grossly WFL bilat. Pt reported limited range R shoulder from probable rotator cuff tear but active range grossly equal bilat Upper Extremity Coordination Pt reported no problems Upper Extremity Sensation Pt reported no problems Upper Extremity Strength Grossly 4/5 bilat except 4-/5 R shoulder ("My arm is bothering me today, after that procedure yesterday") ADL-Treatment ADL-Current Pt has been getting up and down with help to manage equipment and lines and is limited by range of cords on vapotherm. Functional [place] Measure 0=Not Assessed/NA 4=Minimal Assistance 1=Total Assistance 5=Supervision or Setup 2=Maximal Assistance 6=Modified [place] 3=Moderate Assistance 7=Complete IndependenceIRFPAI Quality Coding Scale 6 Independent with activity with or without an assistive device 5 Patient requires set up or clean up by helper. Patient completes activity by themselves 4 Supervision or touching assist (CGA). [place] provide cues , steadying assist 3 The helper provides less than half the effort to complete the activity 2 The helper provides more than half the effort to complete the activity 1 Dependent. The helper does all the effort to complete an activity 7 Patient refused to complete or attempt activity 9 The patient did not perform the activity before the current illness or injury 88 Not attempted due to Medical conditions or safety concerns Eating (FIM): 6 (Pt reported she doesn't have any difficulties opening packages or feeding herself) Eating (QC): 6 Grooming (FIM): 5 (Pt said that she hasn't brushed her teeth yet but she has toothbrush and toothpaste here and is sure she can do it with setup) Oral Hygiene (QC): 5 Toileting (FIM): 1 (Per pt report, she needs help with clothing management and wiping "because I'm so weak") Toileting Hygiene (QC): 1 Toilet/Commode Transfer (FIM): 4 (CGA per pt report "because I'm so weak") Toilet Transfer (QC): 4 Other Treatments Pt did 10 reps bilat UE exercise with no additional resistance, focusing on shoulders, elbows, forearms and wrists and muscle groups needed to help with transfers. Pt needed to take recovery periods between exercises. pt was shown one exercise that she can do on her own that allows L UE to help R UE to increase shoulder flex/ext and to increase activity tolerance. Pt verbalized understanding. Pt left up in recliner, all needs met. Education OT Patient Education: Energy conservation, Exercise program, Purpose of tx/ functional activities, Rehab process Teaching Recipient: Patient Teaching Methods: Discussion Response to Teaching: Verbalize Understanding OT Short Term Goals Short Term Goals 1 OT Soa Engineer Goals Halfway Goals Time Frame: Jan 12, 2017 Eating (FIM): 6 Eating (QC): 6 Groomin Oral Hygiene (QC): 6 Bathing(FIM): 6 Upper Body Dressing(FIM): 6 Lower Body Dressing(FIM): 6 Toileting(FIM): 6 Toileting Hygiene (QC): 6 Transfers (B,C,W/C) (FIM): 6 Toilet/Commode Transfer(FIM): 6 Toilet/Commode Transfer (QC): 6 Shower Transfer(FIM): 6 Additional Goals: 2-Verbalize Understanding, 3-ImproveStrength/Silvana 1=Demonstrate adherence to instructed precautions during ADL tasks. 2=Patient will verbalize/demonstrate understanding of assistive devices/ modifications for ADL. 3=Patient will improve strength/tolerance for activity to enable patient to perform ADL's. OT Education/Plan Problem List/Assessment Assessment: Decreased Activ Tolerance, Decreased UE Strength, Impaired Self- Care Skills Pt would benefit from skilled OT to increase her independence in basic self care to allow her to safely return to her home and to decrease caregiver burden. Discharge Recommendations Plan/Recommendations: Continue POC Treatment Plan/Plan of Care Treatment,Training & Education: Yes Patient would benefit from OT for education, treatment and training to promote independence in ADL's, mobility, safety and/or upper extremity function for ADL' s. Plan of Care: ADL Retraining, UE Funct Exercise/Act, UE Neuromus Re-Ed/Coord, OTHER (energy conservation education) Treatment Duration: Jan 12, 2017 Frequency: 5 times per week Estimated Hrs Per Day: .5 hour per day Agreement: Yes Rehab Potential: Fair Time/GCodes Start Time: 13:00 Stop Time: 13:20 Total Time Billed (hr/min): 20 Billed Treatment Time visit, 5 minutes evaluation low intensity, 15 minutes exercise JAMES JORDAN OT Dec 28, 2016 14:31
[2016-12-28 16:42] VITALS: BP 148/67
[2016-12-28] MEDS: LACTOBACILLUS Acidoph/Bulgar 1 GM (LACTINEX) PACKET PO SCH ×2 (17:35→19:56)
--- NOTE | 2016-12-28 19:26 | Progress Note-Cardiology ---
Cardiology SOAP Progress Note Subjective: Gen malaise and weakness No cp or palp or syncope Mild hemoptysis when admitted with pneumonia in early Dec 2016; none since despite therapy with full dose Lovenox for PAF. Now wishes to go off Lovenox Objective: I&O/Vital Signs Vital Sign - Last 12Hours 12/28/16 12/28/16 12/28/16 11:45 14:40 16:42 Temp 98.0 Pulse 121 77 Resp 20 B/P (MAP) 148/67 Pulse Ox 92 95 O2 Delivery Vapotherm Vapotherm O2 Flow Rate 10.00 10.00 FiO2 65 Intake and Output 12/29/16 00:00 Intake Total 710 ml Output Total 400 ml Balance 310 ml Weight (Pounds): 165 Weight (Ounces): 0.0 Weight (Calculated Kilograms): 74.070244 Constitutional: AAO x 3, well-developed, well-nourished, other (Hemangioma of the R cheek) Respiratory: No accessory muscle use, other (good bilat air entry; diminished at the bases) Cardiovascular: regular rate-rhythm, S1 and S2, systolic murmur (faint KAREN at cardiac base) Gastrointestional: No tender, soft, No guarding, No rebound, audible bowel sounds Extremities: swelling (mild bilat ext edema), No clubbing, No cyanosis Neurologic/Psychiatric: oriented x 3, grossly intact, power is 5/5 both on sides Skin: No rash on exposed areas, No ulcerations on exposed areas A/P: Assessment: Paroxysmal atrial fibrillation, first diagnosed on 12/19/16 AdenoCa of the lungs, treated with chemo therapy Admission with pneumonia in early Dec 2016. Had one episode of mild hemoptysis at that time. No recurrence of hemoptysis since despite full dose Lovenox therapy for stroke prophylaxis (since diagnosis of PAF) Anemia, being followed by he Heme/Onc service Plan: * Complex decision making was done with a full and detailed conversation with the patient * I explained the rationale of anticoag * She does not wish to take parenteral anticoag * We discussed the pros and cons of oral anticoags * Given PAF and potential prothrombotic state induced by lung CA, she is at considerable risk of thromboembolic stroke. On the other hand, her risk of bleeding is also greater than usual and she has considerable anemia * After a long discussion, she has decided to go with the lower dose of apixaban. This appears reasonable to do and we are ordering it SHAKILA CANSECO MD FACP FACC CCDS Dec 28, 2016 19:26
[2016-12-28] MEDS: CYCLOBENZAPRINE 10 MG (FLEXERIL) TAB PO SCH (19:57)
[2016-12-28] MEDS: AMITRIPTYLINE 50 MG (ELAVIL) TAB PO SCH (19:57)
[2016-12-28] MEDS: CALCIUM CARB + VIT D 600 MG (CALCARB + D) TAB PO SCH (19:58)
[2016-12-28] MEDS: APIXABAN 2.5 MG (ELIQUIS) TABLET PO SCH (19:58)
[2016-12-28] MEDS: POLYETHYLENE GLYCOL 17 GM (MIRALAX) PACK PO SCH (19:59)
[2016-12-29] VITALS (13 sets, daily range): BP systolic 123–151; BP diastolic 58–78
[2016-12-29] MEDS: RT-ALBUTEROL/IPRATROPIUM 3 ML (DUONEB) VIAL INH SCH ×6 (01:48→22:29)
[2016-12-29] MEDS: RT-ALBUTEROL/IPRATROPIUM 3 ML (DUONEB) VIAL INH PRN (03:56)
[2016-12-29 05:21] LABS: MEAN PLATELET VOLUME 9.4 FL (7.4-10.4); RED BLOOD COUNT 2.36 10^6/uL (4.35-5.85); RED CELL DISTRIBUTION WIDTH 18.2 % (10.0-14.5); WHITE BLOOD COUNT 23.6 10^3/uL (4.3-11.0)
[2016-12-29] MEDS: MEROPENEM 500 MG in NS (IVPB) 100 ML IV SCH ×4 (05:49→22:46)
[2016-12-29] MEDS: FUROSEMIDE 20 MG (LASIX) TAB PO SCH (08:10)
[2016-12-29] MEDS: predniSONE 20 MG TAB PO SCH (08:10)
[2016-12-29] MEDS: CALCIUM CARB + VIT D 600 MG (CALCARB + D) TAB PO SCH ×2 (08:11→20:08)
[2016-12-29] MEDS: meTOprolol TARTRATE 25 MG (LOPRESSOR) TABLET PO SCH ×3 (08:11→20:07)
[2016-12-29] MEDS: BENZONATATE 100 MG (TESSALON) CAPSULE PO SCH ×3 (08:11→20:08)
[2016-12-29] MEDS: APIXABAN 2.5 MG (ELIQUIS) TABLET PO SCH ×2 (08:11→20:08)
[2016-12-29] MEDS: NICOTINE 14 MG (NICODERM) PATCH TD SCH (08:12)
[2016-12-29] MEDS: RAMIPRIL 2.5 MG (ALTACE) CAP PO SCH (08:12)
[2016-12-29] MEDS: VANCOMYCIN 1 GM/NS 250 ML IVPB IV SCH ×4 (08:13→20:09)
[2016-12-29] MEDS: fluCOnazole (DIFLUCAN) 100 MG TAB PO SCH (08:28)
[2016-12-29] MEDS: POLYETHYLENE GLYCOL 17 GM (MIRALAX) PACK PO SCH ×2 (08:28→20:08)
[2016-12-29] MEDS: LACTOBACILLUS Acidoph/Bulgar 1 GM (LACTINEX) PACKET PO SCH ×4 (09:16→20:07)
--- NOTE | 2016-12-29 09:41 | Occupational Ther Daily Note ---
OT Current Status-Daily Note Subjective Pt seen in room, up in bed, agreeable to OT. Said that she had done her arm exercises last night. Appearance Alert, cooperative Mental Status/Objective Functional [place] Measure 0=Not Assessed/NA 4=Minimal Assistance 1=Total Assistance 5=Supervision or Setup 2=Maximal Assistance 6=Modified [place] 3=Moderate Assistance 7=Complete [place] ADL-Treatment Pt wanted to brush teeth. She was able to clean her teeth with setup and wash her face, setup. She needed a recovery period after ADL due to respiratory status. Functional [place] Measure 0=Not Assessed/NA 4=Minimal Assistance 1=Total Assistance 5=Supervision or Setup 2=Maximal Assistance 6=Modified [place] 3=Moderate Assistance 7=Complete IndependenceIRFPAI Quality Coding Scale 6 Independent with activity with or without an assistive device 5 Patient requires set up or clean up by helper. Patient completes activity by themselves 4 Supervision or touching assist (CGA). [place] provide cues , steadying assist 3 The helper provides less than half the effort to complete the activity 2 The helper provides more than half the effort to complete the activity 1 Dependent. The helper does all the effort to complete an activity 7 Patient refused to complete or attempt activity 9 The patient did not perform the activity before the current illness or injury 88 Not attempted due to Medical conditions or safety concerns Other Treatment Pt has edema in hands. Provided with yellow foam sponge (gentle resistance) and red theraputty (medium resistance). Pt educ two exercises with foam to do active motion to hands to help mobilize edema and to strengthen hands, including intrinsics. Pt return demo. Pt educ several different activities/ exercises with theraputty to mobilize edema and strengthen hands/UE. Pt return demo. pt did 10-15 reps of each exercise and verbalized understanding to do these on her own as she is able. Pt left up in bed, all needs met. Education OT Patient Education: Exercise program, Progress toward Goal/Update tx plan, Purpose of tx/functional activities Teaching Recipient: Patient Teaching Methods: Demonstration, Discussion Response to Teaching: Verbalize Understanding, Return Demonstration OT Short Term Goals Short Term Goals 1=Demonstrate adherence to instructed precautions during ADL tasks. 2=Patient will verbalize/demonstrate understanding of assistive devices/ modifications for ADL. 3=Patient will improve strength/tolerance for activity to enable patient to perform ADL's. OT Shelter Goals Manager Therapy Goals Time Frame: Jan 12, 2017 Eating (FIM): 6 Eating (QC): 6 Groomin Oral Hygiene (QC): 6 Bathing(FIM): 6 Upper Body Dressing(FIM): 6 Lower Body Dressing(FIM): 6 Toileting(FIM): 6 Toileting Hygiene (QC): 6 Transfers (B,C,W/C) (FIM): 6 Toilet/Commode Transfer(FIM): 6 Toilet/Commode Transfer (QC): 6 Shower Transfer(FIM): 6 Additional Goals: 2-Verbalize Understanding, 3-ImproveStrength/Silvana 1=Demonstrate adherence to instructed precautions during ADL tasks. 2=Patient will verbalize/demonstrate understanding of assistive devices/ modifications for ADL. 3=Patient will improve strength/tolerance for activity to enable patient to perform ADL's. OT Education/Plan Problem List/Assessment Pt would benefit from skilled OT to increase her independence in basic self care to allow her to safely return to her home and to decrease caregiver burden. Discharge Recommendations Plan/Recommendations: Continue POC Treatment Plan/Plan of Care Patient would benefit from OT for education, treatment and training to promote independence in ADL's, mobility, safety and/or upper extremity function for ADL' s. Plan of Care: ADL Retraining, UE Funct Exercise/Act, UE Neuromus Re-Ed/Coord, OTHER (energy conservation education) Treatment Duration: Jan 12, 2017 Frequency: 5 times per week Estimated Hrs Per Day: .5 hour per day Agreement: Yes Rehab Potential: Fair Time/GCodes Start Time: 09:05 Stop Time: 09:22 Total Time Billed (hr/min): 17 Billed Treatment Time visit, 5 minutes ADL, 12 minutes exercise JAMES JORDAN OT Dec 29, 2016 09:41
--- NOTE | 2016-12-29 09:57 | Physical Therapy Daily Note ---
PT Daily Note-Current Subjective Patient agrees to PT. Pain Numeric Pain Scale: 0-No Pain Location: No Pain Reported Mental Status Patient Orientation: Normal For Age Attachments: Oxygen (vapotherm), Rodriguez Catheter, IV Transfers Functional [place] Measure 0=Not Assessed/NA 4=Minimal Assistance 1=Total Assistance 5=Supervision or Setup 2=Maximal Assistance 6=Modified [place] 3=Moderate Assistance 7=Complete IndependenceIRFPAI Quality Coding Scale 6 Independent with activity with or without an assistive device 5 Patient requires set up or clean up by helper. Patient completes activity by themselves 4 Supervision or touching assist (CGA). [place] provide cues , steadying assist 3 The helper provides less than half the effort to complete the activity 2 The helper provides more than half the effort to complete the activity 1 Dependent. The helper does all the effort to complete an activity 7 Patient refused to complete or attempt activity 9 The patient did not perform the activity before the current illness or injury 88 Not attempted due to Medical conditions or safety concerns Transfers (B, C, W/C) (FIM): 5 Scootin Roll Left to Right (QC): 4 Supine to/from Sit: 5 Sit to/from Stand: 5 Sit to Lying (QC): 4 Sit to Stand (QC): 4 Chair/Yly-zv-Tvzcy Xfer(QC): 4 Bed to/from Chair: 5 Patient is safe with functional transfer. Limited due to vapotherm. Exercises Supine Ex: Ankle pumps, Quad Set, Glut sets, Heel Slides, Straight leg raise, Hip abd/add Supine Reps: 15 (AAROM left LE with SLR and Abd/Add) Seated Therapy Exercises: Long arc quads Seated Reps: 20 Assessment Patient tolerated treatment well and transferred to [facility] for BM after treatment. Call light in hand. PT Shelter Goals Chinese Herbalist Goals PT Chinese Herbalist Goals Time Frame: Jan 12, 2017 Transfers (B,C,W/C) (FIM): 6 Sit to Lying (QC): 5 Lying-Sitting on Side/Bed(QC): 5 Sit to Stand (QC): 5 Rollin Chair/Ucq-rs-Kbxhp Xfer(QC): 5 Does the Patient Walk: Yes Gait (FIM): 2 Gait distance (FIM): 1=877-37 ft Distance: 125' Walk 50ft with 2 Turns (QC): 5 Walk 150 ft (QC): 5 Gait Level of Assist: 6 Gait Assistive Device: FWW PT Plan Treatment/Plan Treatment Plan: Continue Plan of Care Treatment Plan: Education, Functional Activity Silvana, Functional Strength, Gait , Safety, Therapeutic Exercise, Transfers Treatment Duration: Jan 12, 2017 Frequency: 6 times per week Estimated Hrs Per Day: .25 hour per day Patient and/or Family Agrees t: Yes Time/GCodes Time In: 836 Time Out: 851 Total Billed Treatment Time: 15 Total Billed Treatment 1 visit EX 15 min JEANNE BANDA PT Dec 29, 2016 09:57
--- NOTE | 2016-12-29 10:04 | Pulmonary Progress Note ---
Subjective Time Seen by Provider: 09:57 Subjective/Events-last exam no complications noted. Exam Exam Vital Signs Date Time Temp Pulse Resp B/P (MAP) Pulse Ox O2 Delivery O2 Flow Rate FiO2 12/29/16 08:30 97.5 73 20 146/73 93 Vapotherm 10.00 12/29/16 07:31 92 Vapotherm 10.00 65 12/29/16 04:00 98.0 82 18 144/72 94 Vapotherm 10.00 12/29/16 03:56 92 Vapotherm 10.00 65 12/29/16 01:48 Vapotherm 10.00 65 12/29/16 01:00 70 12/29/16 00:35 97.5 73 20 146/73 93 Vapotherm 10.00 12/28/16 21:00 Vapotherm 12.00 90 12/28/16 20:52 94 Vapotherm 10.00 65 12/28/16 19:00 89 12/28/16 16:42 98.0 77 20 148/67 95 Vapotherm 10.00 12/28/16 14:40 121 12/28/16 11:45 92 Vapotherm 10.00 65 General Appearance: Mild Distress HEENT: PERRL/EOMI Neck: Full Range of Motion Respiratory: Chest Non Tender, Decreased Breath Sounds Cardiovascular: Regular Rate, Rhythm, No Edema Gastrointestinal: normal bowel sounds, non tender Extremity: Normal Capillary Refill, Normal Inspection Neurologic/Psychiatric: Alert Skin: Normal Color, Warm/Dry Results Lab Laboratory Tests 12/29/16 05:10 Assessment/Plan Assessment/Plan Pneumonia HCAP Last temp was 12/20 -- Pt is now requiring 100% oxygen via a - vanco merrem R> L pleural effusion s/p pleural effusion per Dr. Yoni encarnacionx was restarted COPD -SVNS, oxygen Adenocarcinoma of lung stage III s/p chemoradiation followed by adjuvant chemotherapy -Oncology is following Thrush -Diflucan radiation pneumonitis dx 1 month ago prednisone Afib RVR -cardiology following -Cardizem gtt 232 Clinical Quality Measures DVT/VTE Risk/Contraindication: Risk Factor Score Per Nursin CELIA BARKSDALE DO Dec 29, 2016 10:04
[2016-12-29] MEDS ORDERED: NS IV 500 ML 500 ML IV SCH (10:13)
--- NOTE | 2016-12-29 11:09 | Progress Note-Hospitalist ---
Progress Note Progress Notes/Assess & Plan Date Seen 12/29/16 Time Seen by Provider: 10:30 Diagonsis/Assessment & Plan Dr. Bloom Review: Pt looks very weak Patient Interview: Blood transfusions discussed due to low level of Hgb Pt asked about starting Lasix because she noticed upper extremity edema Pt states that Dr. Cunha started her on Eliquis When asked if she would like to have the catheter removed and she believes she is too weak for catheter removal Physical exam stable. Lungs sound perfect Pt confirms having BMs AFVSS, Pleasant, stable, weak RRR, CTAB noted trace to 1+ edema non-pitting type Assessment: 1. Adenocarcinoma of the right lung. 2.pneumonitis/pneumonia right lung. 3.COPD 4. Severe anemia requiring 2 units of blood today Plan: 2 units of blood today Lasix Maintain on Eliquis Maintain catheter due to too weak to walk Swing bed Scribed by Cydney Cummins under the direct supervision of Dr. Bartholomew. STACI BARTHOLOMEW DO Dec 29, 2016 11:09
--- NOTE | 2016-12-29 11:51 | Diagnostic Imaging Report ---
INDICATION: Shortness of air. COMPARISON: 12/28/2016 FINDINGS: Single frontal radiographic view of the chest was obtained and again demonstrates cavitary lesion within the right upper lobe. There are persistent interstitial infiltrates within the right lung. Left lung shows significant interval improved aeration. Small bibasilar effusions are suspected. There is no large pneumothorax. Cardiac silhouette and pulmonary vasculature are stable. Right-sided Port-A-Cath is again noted. IMPRESSION: 1. Improved aeration of the left lung. 2. Persistent cavitary lesion with associated interstitial infiltrates of the right lung. 3. Probable small bibasilar effusions. Dictated by: Dictated on workstation # [id number]
[2016-12-29] MEDS: FERROUS SULF 325 MG (IRON) TAB PO SCH (13:20)
[2016-12-29] MEDS: FUROSEMIDE 40 MG/4 ML INJ (LASIX) IVP SCH ×2 (14:30→17:00)
--- NOTE | 2016-12-29 15:38 | Progress Note-Cardiology ---
Cardiology SOAP Progress Note Subjective: Sitting up in a chair at the bedside. States she feels more short of breath today, but it has improved following the Lasix she received. Reports increased upper extremity swelling. No c/o CP or palpitations. Objective: I&O/Vital Signs Vital Sign - Last 12Hours 12/29/16 12/29/16 12/29/16 12/29/16 07:00 07:31 08:30 09:00 Temp 97.5 Pulse 70 73 Resp 20 B/P (MAP) 146/73 Pulse Ox 92 93 O2 Delivery Vapotherm Vapotherm Vapotherm O2 Flow Rate 10.00 10.00 12.00 FiO2 65 90 12/29/16 12/29/16 12/29/16 12/29/16 10:44 12:00 14:15 14:35 Temp 97.5 98.4 98.5 Pulse 88 98 94 Resp 20 18 20 B/P (MAP) 134/60 151/68 142/65 Pulse Ox 91 93 95 96 O2 Delivery Vapotherm Vapotherm Vapotherm Vapotherm O2 Flow Rate 10.00 65.00 10.00 FiO2 65 12/29/16 12/29/16 12/29/16 12/29/16 15:32 15:59 16:45 16:58 Temp 97.3 98.0 98.0 Pulse 79 78 78 Resp 22 30 24 B/P (MAP) 140/71 129/75 129/75 Pulse Ox 92 96 96 96 O2 Delivery Vapotherm Vapotherm Vapotherm Vapotherm O2 Flow Rate 10.00 65.00 65.00 10.00 10.00 FiO2 65 12/29/16 17:05 Temp 98.0 Pulse 78 Resp 24 B/P (MAP) 129/75 Pulse Ox 96 O2 Delivery Vapotherm Intake and Output 12/30/16 00:00 Intake Total 650 ml Output Total 700 ml Balance -50 ml Weight (Pounds): 165 Weight (Ounces): 0.0 Weight (Calculated Kilograms): 74.268732 Constitutional: AAO x 3, well-developed, well-nourished, other (Hemangioma of the R cheek) Respiratory: No accessory muscle use, other (good bilat air entry; diminished at the bases) Cardiovascular: regular rate-rhythm, S1 and S2, systolic murmur (faint KAREN at cardiac base) Gastrointestional: No tender, soft, No guarding, No rebound, audible bowel sounds Extremities: swelling (mild bilat ext edema), No clubbing, No cyanosis Neurologic/Psychiatric: oriented x 3, grossly intact, power is 5/5 both on sides Skin: No rash on exposed areas, No ulcerations on exposed areas Results/Procedures: Labs Laboratory Tests 12/29/16 05:10: White Blood Count 23.6H, Red Blood Count 2.36L, Hemoglobin 7.0L, Hematocrit 22L , Mean Corpuscular Volume 92, Mean Corpuscular Hemoglobin 30, Mean Corpuscular Hemoglobin Concent 32, Red Cell Distribution Width 18.2H, Platelet Count 401H, Mean Platelet Volume 9.4 A/P: Assessment: Paroxysmal atrial fibrillation, first diagnosed on 12/19/16 OAC with Eliquis AdenoCa of the lungs, treated with chemo therapy Admission with pneumonia in early Dec 2016. Had one episode of mild hemoptysis at that time. No recurrence of hemoptysis since despite full dose Lovenox therapy for stroke prophylaxis (since diagnosis of PAF) Anemia, being followed by he Heme/Onc service Plan: * Complex decision making was done with a full and detailed conversation with the patient per Dr. Cunha * I explained the rationale of anticoag * She does not wish to take parenteral anticoag * Dr. Cunha discussed the pros and cons of oral anticoags * Given PAF and potential prothrombotic state induced by lung CA, she is at considerable risk of thromboembolic stroke. On the other hand, her risk of bleeding is also greater than usual and she has considerable anemia * After a long discussion, she has decided to go with the lower dose of apixaban. * Monitor lab * IV diuretics as needed Physician Assessment Physician Assessment Lungs: good bilat air entry, but diminished at the bases Cor: irreg Ext: no c/c/e A&R * As documented in our note above that I updated (italics) and as noted below * Agree with blood transfusion and iv diuretics * Monitor labs * Continue apixaban, if tolerated JUANA RAMIRES BUSINESS OPERATIONS ANALYST Dec 29, 2016 15:38 SHAKILA CUNHA MD FACP FAC CCDS Dec 29, 2016 18:19
[2016-12-29] MEDS: CYCLOBENZAPRINE 10 MG (FLEXERIL) TAB PO SCH (20:08)
[2016-12-29] MEDS: AMITRIPTYLINE 50 MG (ELAVIL) TAB PO SCH (20:08)
[2016-12-30] VITALS (7 sets, daily range): BP systolic 96–145; BP diastolic 58–83
[2016-12-30] MEDS: RT-ALBUTEROL/IPRATROPIUM 3 ML (DUONEB) VIAL INH SCH ×6 (02:26→22:04)
[2016-12-30] MEDS: MEROPENEM 500 MG in NS (IVPB) 100 ML IV SCH ×3 (05:04→17:31)
[2016-12-30] MEDS: LACTOBACILLUS Acidoph/Bulgar 1 GM (LACTINEX) PACKET PO SCH ×4 (08:00→20:12)
[2016-12-30] MEDS: VANCOMYCIN 1 GM/NS 250 ML IVPB IV SCH ×4 (08:50→20:12)
[2016-12-30] MEDS: BENZONATATE 100 MG (TESSALON) CAPSULE PO SCH ×4 (09:00→20:13)
[2016-12-30] MEDS: meTOprolol TARTRATE 25 MG (LOPRESSOR) TABLET PO SCH ×4 (09:24→20:13)
[2016-12-30] MEDS: POLYETHYLENE GLYCOL 17 GM (MIRALAX) PACK PO SCH ×2 (09:50→20:13)
--- NOTE | 2016-12-30 10:06 | Physical Therapy Daily Note ---
PT Daily Note-Current Subjective Pt refused treatment. Pt did not give reason but said "I cannot do anything today." Pt declined PROM in bed. Pt declined this PLASTIC PARTS FABRICATOR TRIMMER returning at a later time as well. Transfers Functional Vance Measure 0=Not Assessed/NA 4=Minimal Assistance 1=Total Assistance 5=Supervision or Setup 2=Maximal Assistance 6=Modified Vance 3=Moderate Assistance 7=Complete IndependenceIRFPAI Quality Coding Scale 6 Independent with activity with or without an assistive device 5 Patient requires set up or clean up by helper. Patient completes activity by themselves 4 Supervision or touching assist (CGA). [place] provide cues , steadying assist 3 The helper provides less than half the effort to complete the activity 2 The helper provides more than half the effort to complete the activity 1 Dependent. The helper does all the effort to complete an activity 7 Patient refused to complete or attempt activity 9 The patient did not perform the activity before the current illness or injury 88 Not attempted due to Medical conditions or safety concerns Assessment Current Status: Refused Treatment PT Head Chef Goals [facility] Goals PT Head Chef Goals Time Frame: Jan 12, 2017 Transfers (B,C,W/C) (FIM): 6 Sit to Lying (QC): 5 Lying-Sitting on Side/Bed(QC): 5 Sit to Stand (QC): 5 Rollin Chair/[id number] Xfer(QC): 5 Does the Patient Walk: Yes Gait (FIM): 2 Gait distance (FIM): 2=973-89 ft Distance: 125' Walk 50ft with 2 Turns (QC): 5 Walk 150 ft (QC): 5 Gait Level of Assist: 6 Gait Assistive Device: FWW PT Plan Treatment/Plan Treatment Plan: Continue Plan of Care Treatment Plan: Education, Functional Activity Silvana, Functional Strength, Gait , Safety, Therapeutic Exercise, Transfers Treatment Duration: Jan 12, 2017 Frequency: 6 times per week Estimated Hrs Per Day: .25 hour per day Patient and/or Family Agrees t: Yes Time/GCodes Time In: 900 Time Out: 900 Total Billed Treatment Time: 0 Total Billed Treatment 1, refused ARTI JERRY CPTA Dec 30, 2016 10:06
[2016-12-30] MEDS: NICOTINE PATCH REMOVAL TP SCH (11:07)
[2016-12-30] MEDS: NICOTINE 14 MG (NICODERM) PATCH TD SCH (11:07)
[2016-12-30] MEDS: CALCIUM CARB + VIT D 600 MG (CALCARB + D) TAB PO SCH ×2 (11:37→20:13)
[2016-12-30] MEDS: APIXABAN 2.5 MG (ELIQUIS) TABLET PO SCH ×2 (11:38→20:13)
[2016-12-30] MEDS: RAMIPRIL 2.5 MG (ALTACE) CAP PO SCH ×2 (13:05→14:11)
[2016-12-30] MEDS: fluCOnazole (DIFLUCAN) 100 MG TAB PO SCH ×2 (13:05→14:11)
[2016-12-30] MEDS: predniSONE 20 MG TAB PO SCH ×2 (13:05→14:09)
[2016-12-30] MEDS: FERROUS SULF 325 MG (IRON) TAB PO SCH (13:06)
[2016-12-30] MEDS: FUROSEMIDE 20 MG (LASIX) TAB PO SCH ×2 (13:06→14:11)
--- NOTE | 2016-12-30 16:36 | Progress Note-Cardiology ---
Cardiology SOAP Progress Note Subjective: Feels quite tired today. Does not report shortness of breath or palp or syncope Objective: I&O/Vital Signs Vital Sign - Last 12Hours 12/30/16 12/30/16 12/30/16 12/30/16 07:43 07:46 07:50 08:00 Temp 99.5 Pulse 98 118 Resp 20 B/P (MAP) 137/83 Pulse Ox 90 98 93 O2 Delivery Vapotherm Vapotherm Vapotherm O2 Flow Rate 10.00 10.00 65.00 10.00 FiO2 65 65 65 12/30/16 12/30/16 12:00 14:05 Temp 99.0 Pulse 120 Resp 16 B/P (MAP) 108/58 Pulse Ox 91 91 O2 Delivery Vapotherm Vapotherm O2 Flow Rate 65.00 10.00 10.00 FiO2 65 Intake and Output 12/31/16 00:00 Intake Total 500 ml Output Total 600 ml Balance -100 ml Weight (Pounds): 165 Weight (Ounces): 0.0 Weight (Calculated Kilograms): 74.956136 Constitutional: AAO x 3, well-developed, well-nourished, other (Hemangioma of the R cheek) Respiratory: No accessory muscle use, other (good bilat air entry; diminished at the bases) Cardiovascular: regular rate-rhythm, S1 and S2, systolic murmur (faint KAREN at cardiac base) Gastrointestional: No tender, soft, No guarding, No rebound, audible bowel sounds Extremities: swelling (mild to mod bilat ext edema), No clubbing, No cyanosis Neurologic/Psychiatric: oriented x 3, grossly intact, power is 5/5 both on sides Skin: No rash on exposed areas, No ulcerations on exposed areas A/P: Assessment: Paroxysmal atrial fibrillation, first diagnosed on 12/19/16 OAC with Eliquis AdenoCa of the lungs, treated with chemo therapy Admission with pneumonia in early Dec 2016. Had one episode of mild hemoptysis at that time. No recurrence of hemoptysis since despite full dose Lovenox therapy for stroke prophylaxis (since diagnosis of PAF) Anemia, being followed by he Heme/Onc service Plan: * Continue current card regimen * Monitor lab SHAKILA CANSECO MD FACP FAC CCDS Dec 30, 2016 16:36
[2016-12-30] MEDS: AMITRIPTYLINE 50 MG (ELAVIL) TAB PO SCH (20:13)
[2016-12-30] MEDS: CYCLOBENZAPRINE 10 MG (FLEXERIL) TAB PO SCH (20:13)
[2016-12-31] VITALS: BP 108/70
[2016-12-31] MEDS: MEROPENEM 500 MG in NS (IVPB) 100 ML IV SCH ×4 (00:05→17:50)
[2016-12-31] MEDS: RT-ALBUTEROL/IPRATROPIUM 3 ML (DUONEB) VIAL INH SCH ×6 (02:36→22:48)
[2016-12-31 04:00] VITALS: BP 152/58
[2016-12-31 05:25] LABS: BASOPHILS % (AUTO) 0 % (0-10); EOSINOPHILS % (AUTO) 0 % (0-10); LYMPHOCYTES # (AUTO) 0.4 X 10^3 (1.0-4.0); LYMPHOCYTES % (AUTO) 1 % (12-44); MEAN CORPUSCULAR HEMOGLOBIN 29 PG (25-34); MEAN CORPUSCULAR HGB CONC 33 G/DL (32-36); MEAN CORPUSCULAR VOLUME 88 FL (80-99); MEAN PLATELET VOLUME 9.4 FL (7.4-10.4); MONOCYTES # (AUTO) 1.1 X 10^3 (0.0-1.0); MONOCYTES % (AUTO) 3 % (0-12); NEUTROPHILS # (AUTO) 29.6 X 10^3 (1.8-7.8); NEUTROPHILS % (AUTO) 95 % (42-75); PLATELET COUNT 284 10^3/uL (130-400); RED BLOOD COUNT 3.44 10^6/uL (4.35-5.85); RED CELL DISTRIBUTION WIDTH 18.1 % (10.0-14.5)
[2016-12-31 05:48] LABS: WHITE BLOOD COUNT 31.2 10^3/uL (4.3-11.0)
[2016-12-31 05:51] LABS: ALANINE AMINOTRANSFERASE 22 U/L (0-55); ALBUMIN 2.3 GM/DL (3.2-4.5); ANION GAP 10 MMOL/L (5-14); ASPARTATE AMINO TRANSFERASE 14 U/L (5-34); BILIRUBIN,TOTAL 0.4 MG/DL (0.1-1.0); BLOOD UREA NITROGEN 23 MG/DL (7-18); BUN/CREATININE RATIO 43; CALCIUM 8.3 MG/DL (8.5-10.1); CARBON DIOXIDE 32 MMOL/L (21-32); CHLORIDE 91 MMOL/L (98-107); CREATININE SERUM 0.54 MG/DL (0.60-1.30); GFR ESTIMATED > 60; GLUCOSE 147 MG/DL (70-105); MAGNESIUM 1.6 MG/DL (1.8-2.4); POTASSIUM 3.9 MMOL/L (3.6-5.0); SODIUM 133 MMOL/L (135-145); TOTAL PROTEIN 4.4 GM/DL (6.4-8.2)
[2016-12-31 08:55] VITALS: BP 120/56
[2016-12-31] MEDS: VANCOMYCIN 1 GM/NS 250 ML IVPB IV SCH ×4 (09:46→20:46)
[2016-12-31] MEDS: LACTOBACILLUS Acidoph/Bulgar 1 GM (LACTINEX) PACKET PO SCH ×4 (10:18→20:46)
[2016-12-31] MEDS: RAMIPRIL 2.5 MG (ALTACE) CAP PO SCH (10:18)
[2016-12-31] MEDS: NICOTINE 14 MG (NICODERM) PATCH TD SCH (10:18)
[2016-12-31] MEDS: CALCIUM CARB + VIT D 600 MG (CALCARB + D) TAB PO SCH ×2 (10:18→20:46)
[2016-12-31] MEDS: NICOTINE PATCH REMOVAL TP SCH (10:18)
[2016-12-31] MEDS: BENZONATATE 100 MG (TESSALON) CAPSULE PO SCH ×3 (10:19→20:46)
[2016-12-31] MEDS: predniSONE 20 MG TAB PO SCH (10:19)
[2016-12-31] MEDS: POLYETHYLENE GLYCOL 17 GM (MIRALAX) PACK PO SCH ×2 (10:19→20:47)
[2016-12-31] MEDS: fluCOnazole (DIFLUCAN) 100 MG TAB PO SCH (10:30)
[2016-12-31] MEDS: FUROSEMIDE 20 MG (LASIX) TAB PO SCH (10:30)
[2016-12-31] MEDS: meTOprolol TARTRATE 25 MG (LOPRESSOR) TABLET PO SCH ×3 (10:30→20:46)
[2016-12-31] MEDS: APIXABAN 2.5 MG (ELIQUIS) TABLET PO SCH ×2 (10:31→20:47)
[2016-12-31] MEDS: FERROUS SULF 325 MG (IRON) TAB PO SCH (12:23)
[2016-12-31 12:30] VITALS: BP 108/57
--- NOTE | 2016-12-31 14:00 | Progress Note-Hospitalist ---
Standard Progress Note Progress Notes/Assess & Plan Date Seen 12/31/16 Time Seen by Provider: 13:54 Assess & Plan/Chief Complaint The patient greeted me with a question of why her white blood count seems to keep rising. I had brought my tablet to show her the x-rays which may explain this. The chest x-ray shows a lucency in the right upper lobe. This would suggest the possibility of tumor necrosis or abscess. It is noted that her white count has increased from 23,000- 31,000. She has not exhibited fever. A kat discussion ensued about her wishes. Certainly a percutaneous catheter could be placed for the possibility of drainage. It is not at all clear whether this would solve anything or merely add to the M I S ER Y. She stated that she is about had enough. She would wish to speak to her family and give us the answer in the morning. Physical exam: She is alert and UNemotional. Lungs show distant breath sounds. CV was regular. Her arms and legs again are noted to be edematous. Impression: Granulocytosis. 2.chest x-ray change suggesting tumor necrosis or abscess right upper lobe. 3.adenocarcinoma of the lung Plan: Await decision from [facility] Labs Laboratory Tests 12/31/16 05:15 NATHALIE PATRICIA MD Dec 31, 2016 14:00
[2016-12-31] MEDS ORDERED: FUROSEMIDE 40 MG/4 ML INJ (LASIX) ONE (14:04)
[2016-12-31] MEDS ORDERED: FUROSEMIDE 40 MG/4 ML INJ (LASIX) IVP NR (14:11)
--- NOTE | 2016-12-31 15:59 | Progress Note-Cardiology ---
Cardiology SOAP Progress Note Subjective: No cp or palp or syncope Objective: I&O/Vital Signs Vital Sign - Last 12Hours 12/31/16 12/31/16 12/31/16 12/31/16 04:00 06:43 08:00 08:55 Temp 97.3 98.6 Pulse 83 90 Resp 20 18 B/P (MAP) 152/58 120/56 Pulse Ox 93 90 90 O2 Delivery Vapotherm Vapotherm Vapotherm Vapotherm O2 Flow Rate 65.00 10.00 10.00 65.00 10.00 10.00 FiO2 65 65 12/31/16 12/31/16 12/31/16 10:15 12:30 14:25 Temp 98.6 Pulse 97 Resp 16 B/P (MAP) 108/57 Pulse Ox 84 90 90 O2 Delivery Vapotherm Vapotherm Vapotherm O2 Flow Rate 10.00 65.00 12.00 10.00 FiO2 65 70 Intake and Output 01/01/17 00:00 Intake Total 520 ml Output Total 650 ml Balance -130 ml Weight (Pounds): 165 Weight (Ounces): 0.0 Weight (Calculated Kilograms): 74.959380 Constitutional: AAO x 3, well-developed, well-nourished, other (Hemangioma of the R cheek) Respiratory: No accessory muscle use, other (good bilat air entry; diminished at the bases) Cardiovascular: regular rate-rhythm, S1 and S2, systolic murmur (faint KAREN at cardiac base) Gastrointestional: No tender, soft, No guarding, No rebound, audible bowel sounds Extremities: swelling (mild to mod bilat ext edema), No clubbing, No cyanosis Neurologic/Psychiatric: oriented x 3, grossly intact, power is 5/5 both on sides Skin: No rash on exposed areas, No ulcerations on exposed areas Results/Procedures: Labs Laboratory Tests 12/31/16 05:15: White Blood Count 31.2*H, Red Blood Count 3.44L, Hemoglobin 9.9#L, Hematocrit 30L, Mean Corpuscular Volume 88, Mean Corpuscular Hemoglobin 29, Mean Corpuscular Hemoglobin Concent 33, Red Cell Distribution Width 18.1H, Platelet Count 284, Mean Platelet Volume 9.4, Neutrophils (%) (Auto) 95H, Lymphocytes (% ) (Auto) 1L, Monocytes (%) (Auto) 3, Eosinophils (%) (Auto) 0, Basophils (%) ( Auto) 0, Neutrophils # (Auto) 29.6H, Lymphocytes # (Auto) 0.4L, Monocytes # ( Auto) 1.1H, Eosinophils # (Auto) 0.0, Basophils # (Auto) 0.0, Sodium Level 133L , Potassium Level 3.9, Chloride Level 91L, Carbon Dioxide Level 32, Anion Gap 10 , Blood Urea Nitrogen 23H, Creatinine 0.54L, Estimat Glomerular Filtration Rate > 60, BUN/Creatinine Ratio 43, Glucose Level 147H, Calcium Level 8.3L, Magnesium Level 1.6L, Total Bilirubin 0.4, Aspartate Amino Transf (AST/SGOT) 14 , Alanine Aminotransferase (ALT/SGPT) 22, Alkaline Phosphatase 64, Total Protein 4.4L, Albumin 2.3L Laboratory Tests 12/31/16 05:15 A/P: Assessment: Paroxysmal atrial fibrillation, first diagnosed on 12/19/16 OAC with Eliquis AdenoCa of the lungs, treated with chemo therapy Admission with pneumonia in early Dec 2016. Had one episode of mild hemoptysis at that time. No recurrence of hemoptysis since despite full dose Lovenox therapy for stroke prophylaxis (since diagnosis of PAF) Anemia, being followed by he Heme/Onc service. Hemoglobin improved after recent blood transfusion Plan: * Continue current card regimen * Monitor lab SHAKILA CANSECO MD FACP [facility] CCDS Dec 31, 2016 15:59
[2016-12-31 16:14] VITALS: BP 115/75
[2016-12-31] MEDS: CYCLOBENZAPRINE 10 MG (FLEXERIL) TAB PO SCH (20:47)
[2016-12-31] MEDS: AMITRIPTYLINE 50 MG (ELAVIL) TAB PO SCH (20:52)
[2017-01-01] MEDS: MEROPENEM 500 MG in NS (IVPB) 100 ML IV SCH ×2 (00:17→05:32)
[2017-01-01] MEDS: RT-ALBUTEROL/IPRATROPIUM 3 ML (DUONEB) VIAL INH SCH ×6 (03:00→21:46)
[2017-01-01 06:27] VITALS: BP 117/62
--- NOTE | 2017-01-01 06:36 | Pulmonary Progress Note ---
Subjective Time Seen by Provider: 06:35 Subjective/Events-last exam persistent leukocytosis and hypoxia Exam Exam Vital Signs Date Time Temp Pulse Resp B/P (MAP) Pulse Ox O2 Delivery O2 Flow Rate FiO2 01/01/17 03:00 96 Vapotherm 12.00 85 12/31/16 22:48 93 Vapotherm 12.00 85 12/31/16 21:00 Vapotherm 12/31/16 19:28 91 Vapotherm 12.00 85 12/31/16 16:14 98.5 84 19 115/75 91 Vapotherm 85.00 12.00 12/31/16 14:25 90 Vapotherm 12.00 70 12/31/16 12:30 98.6 97 16 108/57 90 Vapotherm 65.00 10.00 12/31/16 10:15 84 Vapotherm 10.00 65 12/31/16 08:55 98.6 90 18 120/56 90 Vapotherm 65.00 10.00 12/31/16 08:00 Vapotherm 10.00 65 12/31/16 06:43 90 Vapotherm 10.00 65 General Appearance: No Apparent Distress, Anxious Respiratory: No Accessory Muscle Use, No Respiratory Distress, Decreased Breath Sounds Cardiovascular: Regular Rate, Rhythm, No Edema Neurologic/Psychiatric: Alert, Oriented x3 Skin: Normal Color, Warm/Dry Lymphatic: No Adenopathy Results Lab Laboratory Tests 12/31/16 05:15 Assessment/Plan Assessment/Plan Pneumonia HCAP Last temp was 9/6 -- Pt is now requiring 100% oxygen via a - vanco merrem RUL cavitary mass -I do not believe drainage will be beneficial there's not much fluid within cavity Leukocytosis -repeat labs today -repeat cultures R> L pleural effusion s/p pleural effusion per Dr. Vallejo COPD -SVNS, oxygen Adenocarcinoma of lung stage III s/p chemoradiation followed by adjuvant chemotherapy -Oncology is following radiation pneumonitis dx 1 month ago prednisone Afib RVR -cardiology following -Cardizem gtt 232 Clinical Quality Measures DVT/VTE Risk/Contraindication: Risk Factor Score Per Nursin CELIA BARKSDALE DO Jan 01, 2017 06:36
[2017-01-01 08:02] LABS: BASOPHILS % (AUTO) 0 % (0-10); EOSINOPHILS % (AUTO) 0 % (0-10); LYMPHOCYTES # (AUTO) 0.4 X 10^3 (1.0-4.0); LYMPHOCYTES % (AUTO) 2 % (12-44); MEAN CORPUSCULAR HEMOGLOBIN 29 PG (25-34); MEAN CORPUSCULAR HGB CONC 33 G/DL (32-36); MEAN CORPUSCULAR VOLUME 89 FL (80-99); MEAN PLATELET VOLUME 9.4 FL (7.4-10.4); MONOCYTES # (AUTO) 1.2 X 10^3 (0.0-1.0); MONOCYTES % (AUTO) 5 % (0-12); NEUTROPHILS # (AUTO) 21.2 X 10^3 (1.8-7.8); NEUTROPHILS % (AUTO) 93 % (42-75); PLATELET COUNT 324 10^3/uL (130-400); RED BLOOD COUNT 3.27 10^6/uL (4.35-5.85); RED CELL DISTRIBUTION WIDTH 17.6 % (10.0-14.5); WHITE BLOOD COUNT 22.8 10^3/uL (4.3-11.0)
[2017-01-01] MEDS: RT-ALBUTEROL/IPRATROPIUM 3 ML (DUONEB) VIAL INH PRN (08:19)
[2017-01-01 08:23] LABS: ANION GAP 9 MMOL/L (5-14); BLOOD UREA NITROGEN 17 MG/DL (7-18); BUN/CREATININE RATIO 30; CALCIUM 8.7 MG/DL (8.5-10.1); CARBON DIOXIDE 34 MMOL/L (21-32); CHLORIDE 91 MMOL/L (98-107); CREATININE SERUM 0.56 MG/DL (0.60-1.30); GFR ESTIMATED > 60; GLUCOSE 96 MG/DL (70-105); POTASSIUM 3.4 MMOL/L (3.6-5.0); SODIUM 134 MMOL/L (135-145)
[2017-01-01] MEDS: FUROSEMIDE 20 MG (LASIX) TAB PO SCH (09:40)
[2017-01-01] MEDS: predniSONE 20 MG TAB PO SCH (09:40)
[2017-01-01] MEDS: RAMIPRIL 2.5 MG (ALTACE) CAP PO SCH (09:40)
[2017-01-01] MEDS: BENZONATATE 100 MG (TESSALON) CAPSULE PO SCH ×3 (09:40→21:05)
[2017-01-01] MEDS: APIXABAN 2.5 MG (ELIQUIS) TABLET PO SCH ×2 (09:40→21:05)
[2017-01-01] MEDS: CALCIUM CARB + VIT D 600 MG (CALCARB + D) TAB PO SCH ×2 (09:40→21:04)
[2017-01-01] MEDS: meTOprolol TARTRATE 25 MG (LOPRESSOR) TABLET PO SCH ×3 (09:40→21:05)
[2017-01-01] MEDS: LACTOBACILLUS Acidoph/Bulgar 1 GM (LACTINEX) PACKET PO SCH ×4 (09:41→21:04)
[2017-01-01] MEDS: NICOTINE PATCH REMOVAL TP SCH (09:41)
[2017-01-01] MEDS: VANCOMYCIN 1 GM/NS 250 ML IVPB IV SCH ×2 (09:41)
[2017-01-01] MEDS: NICOTINE 14 MG (NICODERM) PATCH TD SCH (09:41)
[2017-01-01] MEDS: POLYETHYLENE GLYCOL 17 GM (MIRALAX) PACK PO SCH ×2 (10:06→21:05)
--- NOTE | 2017-01-01 11:14 | Occupational Ther Daily Note ---
OT Current Status-Daily Note Subjective pt seen in room, up in bed, agreeable to OT "if I can stay here in bed." No pain mentioned. She reported that she didn't get up out of bed Sunday or Sunday (because she didn't feel good) but did get up to commode on Sunday. Appearance Alert, cooperative Mental Status/Objective Functional Swisher Measure 0=Not Assessed/NA 4=Minimal Assistance 1=Total Assistance 5=Supervision or Setup 2=Maximal Assistance 6=Modified Swisher 3=Moderate Assistance 7=Complete Swisher ADL-Treatment Functional Swisher Measure 0=Not Assessed/NA 4=Minimal Assistance 1=Total Assistance 5=Supervision or Setup 2=Maximal Assistance 6=Modified Swisher 3=Moderate Assistance 7=Complete IndependenceIRFPAI Quality Coding Scale 6 Independent with activity with or without an assistive device 5 Patient requires set up or clean up by helper. Patient completes activity by themselves 4 Supervision or touching assist (CGA). [place] provide cues , steadying assist 3 The helper provides less than half the effort to complete the activity 2 The helper provides more than half the effort to complete the activity 1 Dependent. The helper does all the effort to complete an activity 7 Patient refused to complete or attempt activity 9 The patient did not perform the activity before the current illness or injury 88 Not attempted due to Medical conditions or safety concerns Other Treatment Pt's UEs appear more edematous today. Pt reported she has had some Lasix but it takes time to work. Pt did 10 reps bilat shoulder flexion/ext and needed time to recover breath afterwards. Also did 15 reps bilat shoulder int/ext rotation, 10 reps bilat elbow flex/ext with extension stretch at end range. Pt will do pron/sup with stretch at end of supination on her own. Required recovery periods and pursed lip breathing between exercises. Also did 20 reps bilat gross finger flex/ext and intrinsic pinches with foam block and 20 squeezes with theraputty, to strengthen hands but also to help mobilize edema. Pt educ stretch components and purpose of different exercises. Pt left up in bed, all needs met. Education OT Patient Education: Exercise program, Purpose of tx/functional activities Teaching Recipient: Patient Teaching Methods: Discussion Response to Teaching: Verbalize Understanding OT Short Term Goals Short Term Goals 1=Demonstrate adherence to instructed precautions during ADL tasks. 2=Patient will verbalize/demonstrate understanding of assistive devices/ modifications for ADL. 3=Patient will improve strength/tolerance for activity to enable patient to perform ADL's. OT Supervisor Electronics Testing Goals Supervisor Electronics Testing Goals Time Frame: Jan 12, 2017 Eating (FIM): 6 Eating (QC): 6 Groomin Oral Hygiene (QC): 6 Bathing(FIM): 6 Upper Body Dressing(FIM): 6 Lower Body Dressing(FIM): 6 Toileting(FIM): 6 Toileting Hygiene (QC): 6 Transfers (B,C,W/C) (FIM): 6 Toilet/Commode Transfer(FIM): 6 Toilet/Commode Transfer (QC): 6 Shower Transfer(FIM): 6 Additional Goals: 2-Verbalize Understanding, 3-ImproveStrength/Silvana 1=Demonstrate adherence to instructed precautions during ADL tasks. 2=Patient will verbalize/demonstrate understanding of assistive devices/ modifications for ADL. 3=Patient will improve strength/tolerance for activity to enable patient to perform ADL's. OT Education/Plan Problem List/Assessment Pt would benefit from skilled OT to increase her independence in basic self care to allow her to safely return to her home and to decrease caregiver burden. Discharge Recommendations Plan/Recommendations: Continue POC Treatment Plan/Plan of Care Patient would benefit from OT for education, treatment and training to promote independence in ADL's, mobility, safety and/or upper extremity function for ADL' s. Plan of Care: ADL Retraining, UE Funct Exercise/Act, UE Neuromus Re-Ed/Coord, OTHER (energy conservation education) Treatment Duration: Jan 12, 2017 Frequency: 5 times per week Estimated Hrs Per Day: .5 hour per day Agreement: Yes Rehab Potential: Fair Time/GCodes Start Time: 10:35 Stop Time: 10:50 Total Time Billed (hr/min): 15 Billed Treatment Time visit, 15 minutes exercise JAMES JORDAN OT Jan 01, 2017 11:14
[2017-01-01] MEDS: FERROUS SULF 325 MG (IRON) TAB PO SCH (12:44)
--- NOTE | 2017-01-01 14:17 | Physical Therapy Progress Note ---
Therapy Progress Note PT attempted to see pt approx. 1140 but pt wanted to wait until after lunch. Pt was to have bath and sit in recliner. PT checked pt again approx. 1320 and pt refused stating she felt "too weak" at this time to complete any tx. PT will check pt tomorrow. REINA ZHOU POULTRY HUSBANDRY TEACHER Jan 01, 2017 14:17
--- NOTE | 2017-01-01 14:30 | Progress Note-Hospitalist ---
Subjective HPI/CC On Admission Date Seen by Provider: Jan 01, 2017 Time Seen by Provider: 13:15 Subjective/Events-last exam reports feeling about the same but better since I saw her 1 week ago. She reports having discussed potential procedure with Dr. Bloom who feels it would not be beneficial. She requests 1 more week of current treatment and then seeing how she is doing but she would like to discuss other options with Jina (x ray physician). Objective Exam Vital Signs Vital Sign - Last 12Hours 12/28/16 12/28/16 12/28/16 11:45 14:40 16:42 Temp 98.0 Pulse 121 Resp 20 B/P (MAP) 148/67 Pulse Ox 92 O2 Delivery Vapotherm O2 Flow Rate 10.00 FiO2 65 Capillary Refill : General Appearance: No Apparent Distress, WD/WN Respiratory: Normal Breath Sounds, No Accessory Muscle Use Cardiovascular: Regular Rate, Rhythm, No Murmur Gastrointestinal: Normal Bowel Sounds, Non Tender, Soft Neurologic/Psychiatric: Alert, Oriented x3 Results/Procedures Lab Laboratory Tests 01/01/17 07:46 Assessment/Plan Assessment and Plan Assess & Plan/Chief Complaint See Problems Diagnosis/Problems Diagnosis/Problems (1) Adenocarcinoma of lung Assessment & Plan: Follows with Dr. Bermeo, recently diagnosed with radiation pneumonitis DC abx today Will defer any procedure for potential abscess/tumor necrosis currently Continue to titrate oxygen down Await discussion with son tomorrow (2) Atrial fibrillation Assessment & Plan: Cardiology following On Metoprolol and Eliquis Qualifiers: Qualified Codes: I48.0 - Paroxysmal atrial fibrillation (3) Normocytic anemia Status: Chronic Assessment & Plan: Stable s/p 2u transfusion on 12/29 GILLES RICHARDSON MD Jan 01, 2017 14:30
[2017-01-01 18:15] VITALS: BP 117/75
[2017-01-01] MEDS: AMITRIPTYLINE 50 MG (ELAVIL) TAB PO SCH (21:05)
[2017-01-01] MEDS: CYCLOBENZAPRINE 10 MG (FLEXERIL) TAB PO SCH (21:05)
[2017-01-02] MEDS: RT-ALBUTEROL/IPRATROPIUM 3 ML (DUONEB) VIAL INH SCH ×6 (01:25→22:25)
[2017-01-02] MEDS: PROMETHAZINE/ CODEINE SYRUP 5 ML UDC PO PRN ×3 (04:32→14:23)
[2017-01-02 06:37] VITALS: BP 118/58
--- NOTE | 2017-01-02 06:42 | Pulmonary Progress Note ---
Subjective Time Seen by Provider: 06:39 Subjective/Events-last exam PT is still requiring high flow oxygen at 80%. Exam Exam Vital Signs Date Time Temp Pulse Resp B/P (MAP) Pulse Ox O2 Delivery O2 Flow Rate FiO2 01/02/17 01:25 95 Vapotherm 12.00 80 01/01/17 21:46 96 Vapotherm 12.00 80 01/01/17 20:50 96 Vapotherm 12.00 01/01/17 18:42 96 Vapotherm 12.00 80 01/01/17 18:15 96.8 89 20 117/75 95 Vapotherm 85.00 12.00 01/01/17 15:20 95 Vapotherm 12.00 80 01/01/17 11:15 94 Vapotherm 12.00 80 01/01/17 08:20 87 Vapotherm 12.00 80 01/01/17 08:00 94 Vapotherm 12.00 01/01/17 07:35 Vapotherm 12.00 80 General Appearance: No Apparent Distress, WD/WN Respiratory: Normal Breath Sounds, No Accessory Muscle Use Cardiovascular: Regular Rate, Rhythm, No Murmur Neurologic/Psychiatric: Alert, Oriented x3 Skin: Normal Color, Warm/Dry Lymphatic: No Adenopathy Results Lab Laboratory Tests 01/01/17 07:46 Assessment/Plan Assessment/Plan Pneumonia HCAP Last temp was 12/20 -- Pt is now requiring 100% oxygen via a - vanco merrem RUL cavitary mass -I do not believe drainage will be beneficial there's not much fluid within cavity Leukocytosis -repeat labs today -repeat cultures R> L pleural effusion s/p pleural effusion per Dr. Vallejo -Repeat labs with BNP -change lasix to 40mg IV daily COPD -SVNS, oxygen Adenocarcinoma of lung stage III s/p chemoradiation followed by adjuvant chemotherapy -Oncology is following radiation pneumonitis dx 1 month ago prednisone Afib RVR -cardiology following -Cardizem gtt 232 Clinical Quality Measures DVT/VTE Risk/Contraindication: Risk Factor Score Per Nursin CELIA BARKSDALE DO Jan 02, 2017 06:42
[2017-01-02 06:53] VITALS: BP 118/58
[2017-01-02] MEDS: POLYETHYLENE GLYCOL 17 GM (MIRALAX) PACK PO SCH (08:08)
[2017-01-02] MEDS: LACTOBACILLUS Acidoph/Bulgar 1 GM (LACTINEX) PACKET PO SCH ×2 (08:08→10:23)
[2017-01-02] MEDS: predniSONE 20 MG TAB PO SCH (08:52)
[2017-01-02] MEDS: BENZONATATE 100 MG (TESSALON) CAPSULE PO SCH ×3 (08:52→21:06)
[2017-01-02] MEDS: NICOTINE PATCH REMOVAL TP SCH (08:53)
[2017-01-02] MEDS: NICOTINE 14 MG (NICODERM) PATCH TD SCH (08:53)
[2017-01-02] MEDS: APIXABAN 2.5 MG (ELIQUIS) TABLET PO SCH ×2 (08:53→21:06)
[2017-01-02] MEDS: RAMIPRIL 2.5 MG (ALTACE) CAP PO SCH (08:53)
[2017-01-02] MEDS: KCL 10 MEQ TAB (MICRO K) PO SCH (08:53)
[2017-01-02] MEDS: meTOprolol TARTRATE 25 MG (LOPRESSOR) TABLET PO SCH ×3 (08:53→21:06)
[2017-01-02] MEDS: CALCIUM CARB + VIT D 600 MG (CALCARB + D) TAB PO SCH ×2 (08:53→21:06)
[2017-01-02] MEDS: FUROSEMIDE 40 MG/4 ML INJ (LASIX) IVP SCH (08:54)
[2017-01-02 09:09] LABS: MEAN PLATELET VOLUME 9.2 FL (7.4-10.4); RED BLOOD COUNT 3.24 10^6/uL (4.35-5.85); RED CELL DISTRIBUTION WIDTH 17.1 % (10.0-14.5); WHITE BLOOD COUNT 16.6 10^3/uL (4.3-11.0)
--- NOTE | 2017-01-02 09:09 | Occupational Ther Daily Note ---
OT Current Status-Daily Note Subjective Pt alert, sitting in bed. Agrees to therapy, no c/o pain. Mental Status/Objective Patient Orientation: Person, Place, Time, Situation Functional [place] Measure 0=Not Assessed/NA 4=Minimal Assistance 1=Total Assistance 5=Supervision or Setup 2=Maximal Assistance 6=Modified [place] 3=Moderate Assistance 7=Complete [place] Attachments: IV, Oxygen ADL-Treatment Functional [place] Measure 0=Not Assessed/NA 4=Minimal Assistance 1=Total Assistance 5=Supervision or Setup 2=Maximal Assistance 6=Modified [place] 3=Moderate Assistance 7=Complete IndependenceIRFPAI Quality Coding Scale 6 Independent with activity with or without an assistive device 5 Patient requires set up or clean up by helper. Patient completes activity by themselves 4 Supervision or touching assist (CGA). [place] provide cues , steadying assist 3 The helper provides less than half the effort to complete the activity 2 The helper provides more than half the effort to complete the activity 1 Dependent. The helper does all the effort to complete an activity 7 Patient refused to complete or attempt activity 9 The patient did not perform the activity before the current illness or injury 88 Not attempted due to Medical conditions or safety concerns Grooming (FIM): 5 (After set up, pt able to brush teeth and wash face in bed. ) Other Treatment Pt completed 3 shldr exercises 1 set 10x performing shldr flex, abd/add, and int /ext rotation. Pt able to complete exercises actively with L arm, required assistance to perform with R arm due to pain. Pt required several breaks throughout therapy. After therapy, pt sitting in bed with phone and call light in reach. Nrsg present. All needs met. OT Short Term Goals Short Term Goals 1=Demonstrate adherence to instructed precautions during ADL tasks. 2=Patient will verbalize/demonstrate understanding of assistive devices/ modifications for ADL. 3=Patient will improve strength/tolerance for activity to enable patient to perform ADL's. OT Administrative Professional Goals Administrative Professional Goals Time Frame: Jan 12, 2017 Eating (FIM): 6 Eating (QC): 6 Groomin Oral Hygiene (QC): 6 Bathing(FIM): 6 Upper Body Dressing(FIM): 6 Lower Body Dressing(FIM): 6 Toileting(FIM): 6 Toileting Hygiene (QC): 6 Transfers (B,C,W/C) (FIM): 6 Toilet/Commode Transfer(FIM): 6 Toilet/Commode Transfer (QC): 6 Shower Transfer(FIM): 6 Additional Goals: 2-Verbalize Understanding, 3-ImproveStrength/Silvana 1=Demonstrate adherence to instructed precautions during ADL tasks. 2=Patient will verbalize/demonstrate understanding of assistive devices/ modifications for ADL. 3=Patient will improve strength/tolerance for activity to enable patient to perform ADL's. OT Education/Plan Problem List/Assessment Pt would benefit from skilled OT to increase her independence in basic self care to allow her to safely return to her home and to decrease caregiver burden. Discharge Recommendations Plan/Recommendations: Continue POC Treatment Plan/Plan of Care Patient would benefit from OT for education, treatment and training to promote independence in ADL's, mobility, safety and/or upper extremity function for ADL' s. Plan of Care: ADL Retraining, UE Funct Exercise/Act, UE Neuromus Re-Ed/Coord, OTHER (energy conservation education) Treatment Duration: Jan 12, 2017 Frequency: 5 times per week Estimated Hrs Per Day: .25 hour per day Agreement: Yes Rehab Potential: Fair Time/GCodes Start Time: 08:43 Stop Time: 08:58 Total Time Billed (hr/min): 15 Billed Treatment Time 1 visit, FA 1 (15 minutes) DURGA FAGAN Jan 02, 2017 09:09
[2017-01-02 09:22] LABS: ANION GAP 8 MMOL/L (5-14); BLOOD UREA NITROGEN 13 MG/DL (7-18); BUN/CREATININE RATIO 23; CALCIUM 8.8 MG/DL (8.5-10.1); CARBON DIOXIDE 34 MMOL/L (21-32); CHLORIDE 91 MMOL/L (98-107); CREATININE SERUM 0.56 MG/DL (0.60-1.30); GFR ESTIMATED > 60; GLUCOSE 123 MG/DL (70-105); PHOSPHORUS 2.8 MG/DL (2.3-4.7); POTASSIUM 3.4 MMOL/L (3.6-5.0); SODIUM 133 MMOL/L (135-145)
--- NOTE | 2017-01-02 11:50 | Physical Therapy Daily Note ---
PT Daily Note-Current Subjective Pt sitting in recliner upon arrival. Pt agrees to PT. [employer] has met with pt & family and they are considering their choices for tx/hospice. Mental Status Patient Orientation: Person, Place, Situation Attachments: Oxygen ((Vapotherm)) Transfers Functional [place] Measure 0=Not Assessed/NA 4=Minimal Assistance 1=Total Assistance 5=Supervision or Setup 2=Maximal Assistance 6=Modified [place] 3=Moderate Assistance 7=Complete IndependenceIRFPAI Quality Coding Scale 6 Independent with activity with or without an assistive device 5 Patient requires set up or clean up by helper. Patient completes activity by themselves 4 Supervision or touching assist (CGA). [place] provide cues , steadying assist 3 The helper provides less than half the effort to complete the activity 2 The helper provides more than half the effort to complete the activity 1 Dependent. The helper does all the effort to complete an activity 7 Patient refused to complete or attempt activity 9 The patient did not perform the activity before the current illness or injury 88 Not attempted due to Medical conditions or safety concerns Exercises Seated Therapy Exercises: Ankle pumps, Long arc quads, Hip flexion, Kicking activity, Hip abd/add Seated Reps: 15 Treatments Pt completed Seated Ex in recliner due to fatigue. Pt rests in recliner at end of tx with all needs met. Assessment Current Status: Fair Progress Pt participates as she feels like she can due to fatigue. PT Ship Design Teacher Goals Snf Goals PT Ship Design Teacher Goals Time Frame: Jan 12, 2017 Transfers (B,C,W/C) (FIM): 6 Sit to Lying (QC): 5 Lying-Sitting on Side/Bed(QC): 5 Sit to Stand (QC): 5 Rollin Chair/Xlt-dc-Xrfmt Xfer(QC): 5 Does the Patient Walk: Yes Gait (FIM): 2 Gait distance (FIM): 3=066-54 ft Distance: 125' Walk 50ft with 2 Turns (QC): 5 Walk 150 ft (QC): 5 Gait Level of Assist: 6 Gait Assistive Device: FWW PT Plan Problem List Problem List: Activity Tolerance, Functional Strength, Safety, Balance, Gait, Transfer, Bed Mobility Treatment/Plan Treatment Plan: Continue Plan of Care Treatment Plan: Education, Functional Activity Silvana, Functional Strength, Gait , Safety, Therapeutic Exercise, Transfers Treatment Duration: Jan 12, 2017 Frequency: 6 times per week Estimated Hrs Per Day: .25 hour per day Patient and/or Family Agrees t: Yes Safety Risks/Education Patient Education: Transfer Techniques, Correct Positioning, Safety Issues Teaching Recipient: Patient Teaching Methods: Discussion Response to Teaching: Verbalize Understanding Time/GCodes Time In: 1120 Time Out: 1135 Total Billed Treatment Time: 15 Total Billed Treatment visit, EX (15m) REINA ZHOU DYE WORKER Jan 02, 2017 11:50
[2017-01-02] MEDS: FERROUS SULF 325 MG (IRON) TAB PO SCH (12:13)
[2017-01-02] MEDS ORDERED: POLYETHYLENE GLYCOL 17 GM (MIRALAX) PACK PO PRN (13:45)
[2017-01-02 17:31] VITALS: BP 115/59
[2017-01-02] MEDS: CYCLOBENZAPRINE 10 MG (FLEXERIL) TAB PO SCH (21:06)
[2017-01-02] MEDS: AMITRIPTYLINE 50 MG (ELAVIL) TAB PO SCH (21:06)
[2017-01-03] MEDS: PROMETHAZINE/ CODEINE SYRUP 5 ML UDC PO PRN ×4 (00:34→21:00)
[2017-01-03] MEDS: RT-ALBUTEROL/IPRATROPIUM 3 ML (DUONEB) VIAL INH SCH ×5 (02:51→18:19)
[2017-01-03 06:00] VITALS: BP 117/59
[2017-01-03] MEDS: FUROSEMIDE 40 MG/4 ML INJ (LASIX) IVP SCH (08:36)
[2017-01-03] MEDS: RAMIPRIL 2.5 MG (ALTACE) CAP PO SCH (08:36)
[2017-01-03] MEDS: CALCIUM CARB + VIT D 600 MG (CALCARB + D) TAB PO SCH ×2 (08:36→21:00)
[2017-01-03] MEDS: BENZONATATE 100 MG (TESSALON) CAPSULE PO SCH ×3 (08:36→21:00)
[2017-01-03] MEDS: APIXABAN 2.5 MG (ELIQUIS) TABLET PO SCH ×2 (08:37→21:00)
[2017-01-03] MEDS: meTOprolol TARTRATE 25 MG (LOPRESSOR) TABLET PO SCH ×3 (08:37→21:00)
[2017-01-03] MEDS: NICOTINE 14 MG (NICODERM) PATCH TD SCH (08:37)
[2017-01-03] MEDS: NICOTINE PATCH REMOVAL TP SCH (08:37)
[2017-01-03] MEDS: KCL 10 MEQ TAB (MICRO K) PO SCH (08:37)
[2017-01-03] MEDS: predniSONE 20 MG TAB PO SCH (08:37)
--- NOTE | 2017-01-03 10:23 | Occupational Ther Daily Note ---
OT Current Status-Daily Note Subjective Pt alert, sitting in bed. Agrees to therapy. Declines bath, friend is on her way. Mental Status/Objective Patient Orientation: Person, Place, Time, Situation Functional [place] Measure 0=Not Assessed/NA 4=Minimal Assistance 1=Total Assistance 5=Supervision or Setup 2=Maximal Assistance 6=Modified [place] 3=Moderate Assistance 7=Complete [place] Attachments: IV, Oxygen ADL-Treatment Functional [place] Measure 0=Not Assessed/NA 4=Minimal Assistance 1=Total Assistance 5=Supervision or Setup 2=Maximal Assistance 6=Modified [place] 3=Moderate Assistance 7=Complete IndependenceIRFPAI Quality Coding Scale 6 Independent with activity with or without an assistive device 5 Patient requires set up or clean up by helper. Patient completes activity by themselves 4 Supervision or touching assist (CGA). [place] provide cues , steadying assist 3 The helper provides less than half the effort to complete the activity 2 The helper provides more than half the effort to complete the activity 1 Dependent. The helper does all the effort to complete an activity 7 Patient refused to complete or attempt activity 9 The patient did not perform the activity before the current illness or injury 88 Not attempted due to Medical conditions or safety concerns Grooming (FIM): 5 (After set up, pt is able to wash face and brush teeth while sitting in bed. ) Other Treatment Pt completed activity with min resistive therapy sponge to increase gross grasp and pinch strength for daily functional tasks. Pt grasped sponge in hand and held for 3 seconds before releasing, 2 sets 10x. Pt then pinched sponge with thumb and each finger 2 sets 10x, fatiguing while finishing L hand exercises, needed rest breaks. Pt reported feeling tired after and stated she would be receiving breathing treatment soon. After therapy, pt sitting in bed with phone and call light in reach. All needs met. OT Short Term Goals Short Term Goals 1=Demonstrate adherence to instructed precautions during ADL tasks. 2=Patient will verbalize/demonstrate understanding of assistive devices/ modifications for ADL. 3=Patient will improve strength/tolerance for activity to enable patient to perform ADL's. OT Stave Log Ripsaw Operator Goals Stave Log Ripsaw Operator Goals Time Frame: Jan 12, 2017 Eating (FIM): 6 Eating (QC): 6 Groomin Oral Hygiene (QC): 6 Bathing(FIM): 6 Upper Body Dressing(FIM): 6 Lower Body Dressing(FIM): 6 Toileting(FIM): 6 Toileting Hygiene (QC): 6 Transfers (B,C,W/C) (FIM): 6 Toilet/Commode Transfer(FIM): 6 Toilet/Commode Transfer (QC): 6 Shower Transfer(FIM): 6 Additional Goals: 2-Verbalize Understanding, 3-ImproveStrength/Silvana 1=Demonstrate adherence to instructed precautions during ADL tasks. 2=Patient will verbalize/demonstrate understanding of assistive devices/ modifications for ADL. 3=Patient will improve strength/tolerance for activity to enable patient to perform ADL's. OT Education/Plan Problem List/Assessment Pt would benefit from skilled OT to increase her independence in basic self care to allow her to safely return to her home and to decrease caregiver burden. Discharge Recommendations Plan/Recommendations: Continue POC Treatment Plan/Plan of Care Patient would benefit from OT for education, treatment and training to promote independence in ADL's, mobility, safety and/or upper extremity function for ADL' s. Plan of Care: ADL Retraining, UE Funct Exercise/Act, UE Neuromus Re-Ed/Coord, OTHER (energy conservation education) Treatment Duration: Jan 12, 2017 Frequency: 5 times per week Estimated Hrs Per Day: .25 hour per day Agreement: Yes Rehab Potential: Fair Time/GCodes Start Time: 10:00 Stop Time: 10:16 Total Time Billed (hr/min): 16 Billed Treatment Time 1 visit, FA 1 (16 minutes) DURGA FAGAN Jan 03, 2017 10:23
[2017-01-03] MEDS: FERROUS SULF 325 MG (IRON) TAB PO SCH (13:11)
--- NOTE | 2017-01-03 15:37 | Physical Therapy Daily Note ---
PT Daily Note-Current Subjective Pt laying Supine in bed receiving Breathing Tx. upon arrival. Pt agrees to PT to move from bed to recliner. Pain Location: No Pain Reported Mental Status Patient Orientation: Person, Place, Time, Situation Attachments: Oxygen, Drains, Rodriguez Catheter Transfers Functional [place] Measure 0=Not Assessed/NA 4=Minimal Assistance 1=Total Assistance 5=Supervision or Setup 2=Maximal Assistance 6=Modified [place] 3=Moderate Assistance 7=Complete IndependenceIRFPAI Quality Coding Scale 6 Independent with activity with or without an assistive device 5 Patient requires set up or clean up by helper. Patient completes activity by themselves 4 Supervision or touching assist (CGA). [place] provide cues , steadying assist 3 The helper provides less than half the effort to complete the activity 2 The helper provides more than half the effort to complete the activity 1 Dependent. The helper does all the effort to complete an activity 7 Patient refused to complete or attempt activity 9 The patient did not perform the activity before the current illness or injury 88 Not attempted due to Medical conditions or safety concerns Scootin Roll Left to Right (QC): 5 Supine to/from Sit: 5 Sit to/from Stand: 5 Sit to Stand (QC): 5 Chair/Ojq-iu-Rekgu Xfer(QC): 5 Bed to/from Chair: 5 Weight Bearing Weight Bearing Restriction: Full Weight Bearing Location Restriction: LE Bilateral Gait Training Does the Patient Walk?: Yes Distance (FIM): 1=up to 49 ft Distance: 10' Gait Level of Assist: 4 Gait Persons Needed: 1 Gait Assistive Device: FWW Pt fatigues easy but is able to complete short transfers and ambulation. Treatments Pt transfers from Supine to EOB at SBA then EOB to Standing using FWW at SBA. Pt stands to have Zinc put on wound then pt ambulates and transfers to recliner nearby. Pt rests in recliner with all needs met at end of tx. Assessment Current Status: Good Progress Due to diagnosis, pt fatigues easy but is able to complete short ambulation and transfers. PT Assisted Goals Assisted Goals PT Swimming Coach Goals Time Frame: Jan 12, 2017 Transfers (B,C,W/C) (FIM): 6 Sit to Lying (QC): 5 Lying-Sitting on Side/Bed(QC): 5 Sit to Stand (QC): 5 Rollin Chair/Jxh-zx-Sccjp Xfer(QC): 5 Does the Patient Walk: Yes Gait (FIM): 2 Gait distance (FIM): 3=317-49 ft Distance: 125' Walk 50ft with 2 Turns (QC): 5 Walk 150 ft (QC): 5 Gait Level of Assist: 6 Gait Assistive Device: FWW PT Plan Problem List Problem List: Activity Tolerance, Functional Strength, Gait Treatment/Plan Treatment Plan: Continue Plan of Care Treatment Plan: Education, Functional Activity Silvana, Functional Strength, Gait , Safety, Therapeutic Exercise, Transfers Treatment Duration: Jan 12, 2017 Frequency: 6 times per week Estimated Hrs Per Day: .25 hour per day Patient and/or Family Agrees t: Yes Safety Risks/Education Patient Education: Correct Positioning, Safety Issues Teaching Recipient: Patient Teaching Methods: Discussion Response to Teaching: Verbalize Understanding Time/GCodes Time In: 1415 Time Out: 1430 Total Billed Treatment Time: 15 Total Billed Treatment visit, FA (15m) REINA ZHOU PTA Jan 03, 2017 15:37
[2017-01-03 18:00] VITALS: BP 105/57
[2017-01-03] MEDS: AMITRIPTYLINE 50 MG (ELAVIL) TAB PO SCH (21:00)
[2017-01-03] MEDS: CYCLOBENZAPRINE 10 MG (FLEXERIL) TAB PO SCH (21:00)
[2017-01-04] MEDS: PROMETHAZINE/ CODEINE SYRUP 5 ML UDC PO PRN ×2 (00:37→20:44)
[2017-01-04] MEDS: RT-ALBUTEROL/IPRATROPIUM 3 ML (DUONEB) VIAL INH SCH ×6 (01:13→22:05)
[2017-01-04 06:00] VITALS: BP 111/56
--- NOTE | 2017-01-04 07:17 | Pulmonary Progress Note ---
Subjective Time Seen by Provider: 07:16 Subjective/Events-last exam Pt is still requiring a lot of oxygen. Exam Exam Vital Signs Date Time Temp Pulse Resp B/P (MAP) Pulse Ox O2 Delivery O2 Flow Rate FiO2 01/04/17 06:00 97.1 86 20 111/56 96 Vapotherm 65.00 12.00 01/03/17 20:00 Vapotherm 12.00 65 01/03/17 18:19 93 Vapotherm 12.00 65 01/03/17 18:00 97.1 79 22 105/57 97 Vapotherm 60.00 12.00 01/03/17 14:17 95 Vapotherm 12.00 65 01/03/17 10:19 96 Vapotherm 12.00 65 01/03/17 07:56 Vapotherm 12.00 65 General Appearance: No Apparent Distress, WD/WN Respiratory: Normal Breath Sounds, No Accessory Muscle Use Cardiovascular: Regular Rate, Rhythm, No Murmur Neurologic/Psychiatric: Alert, Oriented x3 Skin: Normal Color, Warm/Dry Lymphatic: No Adenopathy Results Lab Laboratory Tests 01/02/17 09:05 Assessment/Plan Assessment/Plan Pneumonia HCAP Last temp was 12/20 -- Pt is now requiring 100% oxygen via a - vanco merrem RUL cavitary mass -I do not believe drainage will be beneficial there's not much fluid within cavity Leukocytosis -repeat labs today -repeat cultures Malignant effusion cytology is positive for adenocarcinoma continue to monitor COPD -SVNS, oxygen Adenocarcinoma of lung stage III s/p chemoradiation followed by adjuvant chemotherapy -Oncology is following radiation pneumonitis dx 1 month ago prednisone Afib RVR -cardiology following -Cardizem gtt 232 Clinical Quality Measures DVT/VTE Risk/Contraindication: Risk Factor Score Per Nursin CELIA BARKSDALE DO Jan 04, 2017 07:16
[2017-01-04] MEDS: KCL 10 MEQ TAB (MICRO K) PO SCH (08:52)
[2017-01-04] MEDS: CALCIUM CARB + VIT D 600 MG (CALCARB + D) TAB PO SCH ×2 (08:52→20:44)
[2017-01-04] MEDS: predniSONE 20 MG TAB PO SCH (08:52)
[2017-01-04] MEDS: FUROSEMIDE 40 MG/4 ML INJ (LASIX) IVP SCH (08:53)
[2017-01-04] MEDS: meTOprolol TARTRATE 25 MG (LOPRESSOR) TABLET PO SCH ×3 (08:53→20:45)
[2017-01-04] MEDS: APIXABAN 2.5 MG (ELIQUIS) TABLET PO SCH ×2 (08:53→20:45)
[2017-01-04] MEDS: NICOTINE 14 MG (NICODERM) PATCH TD SCH (08:53)
[2017-01-04] MEDS: NICOTINE PATCH REMOVAL TP SCH (08:53)
[2017-01-04] MEDS: BENZONATATE 100 MG (TESSALON) CAPSULE PO SCH ×3 (08:53→20:44)
[2017-01-04] MEDS: RAMIPRIL 2.5 MG (ALTACE) CAP PO SCH (08:53)
--- NOTE | 2017-01-04 09:53 | Progress Note-Hospitalist ---
Subjective HPI/CC On Admission Date Seen by Provider: Jan 04, 2017 Time Seen by Provider: 09:55 Subjective/Events-last exam She reports feeling okay today. Feeling less swollen with her lasix dosing. Objective Exam Vital Signs Vital Sign - Last 12Hours 12/29/16 12/29/16 00:35 01:48 Temp 97.5 Pulse 73 Resp 20 B/P (MAP) 146/73 Pulse Ox 93 O2 Delivery Vapotherm O2 Flow Rate 10.00 FiO2 65 Capillary Refill : General Appearance: No Apparent Distress, WD/WN Respiratory: No Respiratory Distress, Decreased Breath Sounds Cardiovascular: Regular Rate, Rhythm, No Murmur Gastrointestinal: Normal Bowel Sounds, Non Tender, Soft Extremity: Non Tender, No Calf Tenderness Neurologic/Psychiatric: Alert, Oriented x3 Assessment/Plan Assessment and Plan Assess & Plan/Chief Complaint See Problems Diagnosis/Problems Diagnosis/Problems (1) Adenocarcinoma of lung Assessment & Plan: Follows with Dr. Bermeo, recently diagnosed with radiation pneumonitis Off abx, doing well Will defer any procedure for potential abscess/tumor necrosis currently Continue to titrate oxygen down Arranging for DC with hospice likely next week (2) Atrial fibrillation Assessment & Plan: Cardiology following On Metoprolol and Eliquis Qualifiers: Qualified Codes: I48.0 - Paroxysmal atrial fibrillation (3) Normocytic anemia Status: Chronic Assessment & Plan: Stable s/p 2u transfusion on 12/29 (4) Prophylactic measure Assessment & Plan: Eliquis Reg Diet Saline Lock GILLES RICHARDSON MD Jan 04, 2017 09:53
--- NOTE | 2017-01-04 10:53 | Occupational Ther Daily Note ---
OT Current Status-Daily Note Subjective Pt alert, sitting in bed. Agrees to therapy, would like bed bath. Pt needed encouragement to complete on own. Pt declined taking sponge bath sitting on EOB or in recliner, preferred bed bath. Mental Status/Objective Patient Orientation: Person, Place, Time, Situation Functional [place] Measure 0=Not Assessed/NA 4=Minimal Assistance 1=Total Assistance 5=Supervision or Setup 2=Maximal Assistance 6=Modified [place] 3=Moderate Assistance 7=Complete [place] Attachments: IV, Oxygen ADL-Treatment Functional [place] Measure 0=Not Assessed/NA 4=Minimal Assistance 1=Total Assistance 5=Supervision or Setup 2=Maximal Assistance 6=Modified [place] 3=Moderate Assistance 7=Complete IndependenceIRFPAI Quality Coding Scale 6 Independent with activity with or without an assistive device 5 Patient requires set up or clean up by helper. Patient completes activity by themselves 4 Supervision or touching assist (CGA). [place] provide cues , steadying assist 3 The helper provides less than half the effort to complete the activity 2 The helper provides more than half the effort to complete the activity 1 Dependent. The helper does all the effort to complete an activity 7 Patient refused to complete or attempt activity 9 The patient did not perform the activity before the current illness or injury 88 Not attempted due to Medical conditions or safety concerns Bathing (FIM): 2 (Pt was able to wash arms and chest then fatigued and required assistance with rest of body. ) Bathing Location: L Arm, R Arm, Chest Transfers (B, C, W/C) (FIM): 5 (Pt transferred to chair after bed bath with supervision. Pt stated she did not want to complete sponge bath in chair. ) Pt only wears hospital gown and socks. After set up, pt able to don gown with assistance pulling up arms and requires assistance to don socks due to fatigue. OT Short Term Goals Short Term Goals 1=Demonstrate adherence to instructed precautions during ADL tasks. 2=Patient will verbalize/demonstrate understanding of assistive devices/ modifications for ADL. 3=Patient will improve strength/tolerance for activity to enable patient to perform ADL's. OT Shale Miner Blasting Goals Snf Goals Time Frame: Jan 12, 2017 Eating (FIM): 6 Eating (QC): 6 Groomin Oral Hygiene (QC): 6 Bathing(FIM): 6 Upper Body Dressing(FIM): 6 Lower Body Dressing(FIM): 6 Toileting(FIM): 6 Toileting Hygiene (QC): 6 Transfers (B,C,W/C) (FIM): 6 Toilet/Commode Transfer(FIM): 6 Toilet/Commode Transfer (QC): 6 Shower Transfer(FIM): 6 Additional Goals: 2-Verbalize Understanding, 3-ImproveStrength/Silvana 1=Demonstrate adherence to instructed precautions during ADL tasks. 2=Patient will verbalize/demonstrate understanding of assistive devices/ modifications for ADL. 3=Patient will improve strength/tolerance for activity to enable patient to perform ADL's. OT Education/Plan Problem List/Assessment Pt would benefit from skilled OT to increase her independence in basic self care to allow her to safely return to her home and to decrease caregiver burden. Discharge Recommendations Plan/Recommendations: Continue POC Treatment Plan/Plan of Care Patient would benefit from OT for education, treatment and training to promote independence in ADL's, mobility, safety and/or upper extremity function for ADL' s. Plan of Care: ADL Retraining, UE Funct Exercise/Act, UE Neuromus Re-Ed/Coord, OTHER (energy conservation education) Treatment Duration: Jan 12, 2017 Frequency: 5 times per week Estimated Hrs Per Day: .25 hour per day Agreement: Yes Rehab Potential: Fair Time/GCodes Start Time: 10:20 Stop Time: 10:40 Total Time Billed (hr/min): 20 Billed Treatment Time 1 visit, ADL 1 (20 minutes) DURGA FAGAN Jan 04, 2017 10:53
--- NOTE | 2017-01-04 12:11 | Physical Therapy Daily Note ---
PT Daily Note-Current Subjective Patient reports she is dismissing to [facility] next week on Hospice. Pain Numeric Pain Scale: 5-Moderate Pain Location: Right, Upper Location Body Site: Chest Pain Description: Pressure Mental Status Patient Orientation: Normal For Age Attachments: Oxygen (vapotherm 65% 12L) Transfers Functional [place] Measure 0=Not Assessed/NA 4=Minimal Assistance 1=Total Assistance 5=Supervision or Setup 2=Maximal Assistance 6=Modified [place] 3=Moderate Assistance 7=Complete IndependenceIRFPAI Quality Coding Scale 6 Independent with activity with or without an assistive device 5 Patient requires set up or clean up by helper. Patient completes activity by themselves 4 Supervision or touching assist (CGA). [place] provide cues , steadying assist 3 The helper provides less than half the effort to complete the activity 2 The helper provides more than half the effort to complete the activity 1 Dependent. The helper does all the effort to complete an activity 7 Patient refused to complete or attempt activity 9 The patient did not perform the activity before the current illness or injury 88 Not attempted due to Medical conditions or safety concerns Exercises Supine Ex: Ankle pumps, Quad Set, Heel Slides Supine Reps: 10 (in recliner with bilateral LE elevated) Seated Therapy Exercises: Long arc quads Seated Reps: 10 Assessment Patient has increase SOA with minimal activity and requires multiple recovery periods. PT Half-Way Goals Half-Way Goals PT Half-Way Goals Time Frame: Jan 12, 2017 Transfers (B,C,W/C) (FIM): 6 Sit to Lying (QC): 5 Lying-Sitting on Side/Bed(QC): 5 Sit to Stand (QC): 5 Rollin Chair/Are-sj-Tofri Xfer(QC): 5 Does the Patient Walk: Yes Gait (FIM): 2 Gait distance (FIM): 5=644-07 ft Distance: 125' Walk 50ft with 2 Turns (QC): 5 Walk 150 ft (QC): 5 Gait Level of Assist: 6 Gait Assistive Device: FWW PT Plan Treatment/Plan Treatment Plan: Continue Plan of Care Treatment Plan: Education, Functional Activity Silvana, Functional Strength, Gait , Safety, Therapeutic Exercise, Transfers Treatment Duration: Jan 12, 2017 Frequency: 6 times per week Estimated Hrs Per Day: .25 hour per day Patient and/or Family Agrees t: Yes Time/GCodes Time In: 1145 Time Out: 1200 Total Billed Treatment Time: 15 Total Billed Treatment 1 visit EX 15 min JEANNE BANDA PT Jan 04, 2017 12:11
[2017-01-04] MEDS: FERROUS SULF 325 MG (IRON) TAB PO SCH (12:58)
[2017-01-04] MEDS: ZINC OXIDE 40% OINT (DESITIN) 28 GM TOP PRN ×2 (16:28→22:21)
[2017-01-04 17:54] VITALS: BP 95/64
--- NOTE | 2017-01-04 18:20 | Progress Note-Standard ---
Standard Progress Note Progress Notes/Assess & Plan Date Seen by Provider: Jan 04, 2017 Time Seen by Provider: 18:07 Progress/Assessment & Plan 66-year-old female with non-small cell lung cancer who completed definitive chemoradiation and was on adjuvant chemotherapy. Patient admitted with fever and right upper lobe infiltrate and was on antibiotics. She continues to have significant hypoxia and is on Vapotherm with 65 percent FiO2 at 12 L/m. Patient had a right thoracentesis done last week and the pathology report showing malignant cells consistent with adenocarcinoma. I reviewed these results with the patient and answered her questions. She has evidence of metastatic disease now. Her performance status is poor and she will not tolerate any treatment. Agree with best supportive care. client services administrator working on discharge to a snf with hospice. Will follow patient with you. SAL SCHWARZ Jan 04, 2017 18:20
[2017-01-04] MEDS: CYCLOBENZAPRINE 10 MG (FLEXERIL) TAB PO SCH (20:44)
[2017-01-04] MEDS: AMITRIPTYLINE 50 MG (ELAVIL) TAB PO SCH (20:45)
[2017-01-05] MEDS: PROMETHAZINE/ CODEINE SYRUP 5 ML UDC PO PRN (01:25)
[2017-01-05] MEDS: RT-ALBUTEROL/IPRATROPIUM 3 ML (DUONEB) VIAL INH SCH ×6 (02:42→21:49)
[2017-01-05 06:00] VITALS: BP 103/68
[2017-01-05] MEDS ORDERED: predniSONE 10 MG TAB PO SCH (07:00)
[2017-01-05] MEDS: FUROSEMIDE 40 MG/4 ML INJ (LASIX) IVP SCH (08:20)
[2017-01-05] MEDS: CALCIUM CARB + VIT D 600 MG (CALCARB + D) TAB PO SCH ×2 (08:20→20:58)
[2017-01-05] MEDS: RAMIPRIL 2.5 MG (ALTACE) CAP PO SCH (08:20)
[2017-01-05] MEDS: BENZONATATE 100 MG (TESSALON) CAPSULE PO SCH ×3 (08:20→20:59)
[2017-01-05] MEDS: KCL 10 MEQ TAB (MICRO K) PO SCH (08:20)
[2017-01-05] MEDS: NICOTINE PATCH REMOVAL TP SCH (08:21)
[2017-01-05] MEDS: APIXABAN 2.5 MG (ELIQUIS) TABLET PO SCH ×2 (08:21→20:59)
[2017-01-05] MEDS: NICOTINE 14 MG (NICODERM) PATCH TD SCH (08:21)
[2017-01-05] MEDS: meTOprolol TARTRATE 25 MG (LOPRESSOR) TABLET PO SCH ×3 (08:21→20:58)
[2017-01-05 09:52] VITALS: BP 103/68
--- NOTE | 2017-01-05 10:23 | Physical Therapy Daily Note ---
PT Daily Note-Current Subjective Patient reports she is feeling better. Agrees to PT. Pain Numeric Pain Scale: 0-No Pain Location: No Pain Reported Mental Status Patient Orientation: Normal For Age Attachments: Oxygen (vapotherm 65% 12L) Transfers Functional [place] Measure 0=Not Assessed/NA 4=Minimal Assistance 1=Total Assistance 5=Supervision or Setup 2=Maximal Assistance 6=Modified [place] 3=Moderate Assistance 7=Complete IndependenceIRFPAI Quality Coding Scale 6 Independent with activity with or without an assistive device 5 Patient requires set up or clean up by helper. Patient completes activity by themselves 4 Supervision or touching assist (CGA). [place] provide cues , steadying assist 3 The helper provides less than half the effort to complete the activity 2 The helper provides more than half the effort to complete the activity 1 Dependent. The helper does all the effort to complete an activity 7 Patient refused to complete or attempt activity 9 The patient did not perform the activity before the current illness or injury 88 Not attempted due to Medical conditions or safety concerns Transfers (B, C, W/C) (FIM): 5 Scootin Roll Left to Right (QC): 4 Supine to/from Sit: 5 Sit to/from Stand: 5 Sit to Lying (QC): 4 Sit to Stand (QC): 4 Exercises Standing: Heel/toe raises, Marching Standing Reps: 20 (x 2 sets) Assessment Patient requires recovery periods due to SOA with exertion. RT in for breathing treatment. PT Fci Goals Fci Goals PT Fci Goals Time Frame: Jan 12, 2017 Transfers (B,C,W/C) (FIM): 6 Sit to Lying (QC): 5 Lying-Sitting on Side/Bed(QC): 5 Sit to Stand (QC): 5 Rollin Chair/Tql-cq-Eugci Xfer(QC): 5 Does the Patient Walk: Yes Gait (FIM): 2 Gait distance (FIM): 6=187-81 ft Distance: 125' Walk 50ft with 2 Turns (QC): 5 Walk 150 ft (QC): 5 Gait Level of Assist: 6 Gait Assistive Device: FWW PT Plan Treatment/Plan Treatment Plan: Continue Plan of Care Treatment Plan: Education, Functional Activity Silvana, Functional Strength, Gait , Safety, Therapeutic Exercise, Transfers Treatment Duration: Jan 12, 2017 Frequency: 6 times per week Estimated Hrs Per Day: .25 hour per day Patient and/or Family Agrees t: Yes Time/GCodes Time In: 936 Time Out: 951 Total Billed Treatment Time: 15 Total Billed Treatment 1 visit EX 15 min JEANNE BANDA PT Jan 05, 2017 10:23
[2017-01-05] MEDS: FERROUS SULF 325 MG (IRON) TAB PO SCH (12:54)
[2017-01-05] MEDS: RT-ALBUTEROL/IPRATROPIUM 3 ML (DUONEB) VIAL INH PRN (15:40)
--- NOTE | 2017-01-05 16:44 | Occupational Ther Daily Note ---
OT Current Status-Daily Note Subjective Pt seen inroom, up in recliner, agreeable to OT. No pain reported. Pt had just finished breathing tx. Appearance Alert, cooperative Mental Status/Objective Functional [place] Measure 0=Not Assessed/NA 4=Minimal Assistance 1=Total Assistance 5=Supervision or Setup 2=Maximal Assistance 6=Modified [place] 3=Moderate Assistance 7=Complete [place] ADL-Treatment Functional [place] Measure 0=Not Assessed/NA 4=Minimal Assistance 1=Total Assistance 5=Supervision or Setup 2=Maximal Assistance 6=Modified [place] 3=Moderate Assistance 7=Complete IndependenceIRFPAI Quality Coding Scale 6 Independent with activity with or without an assistive device 5 Patient requires set up or clean up by helper. Patient completes activity by themselves 4 Supervision or touching assist (CGA). [place] provide cues , steadying assist 3 The helper provides less than half the effort to complete the activity 2 The helper provides more than half the effort to complete the activity 1 Dependent. The helper does all the effort to complete an activity 7 Patient refused to complete or attempt activity 9 The patient did not perform the activity before the current illness or injury 88 Not attempted due to Medical conditions or safety concerns Other Treatment Pt did 10 reps bilat UE exercise that worked specifically on elbow extension and shoulder flex. Required recovery break afterwards. Pt also did 10 reps elbow flex/ext and pron/sup, to strengthen arms for ADLs and transfers. Pt educ on how she can do "chair pushups" on her own when weight shifting and transferring to work on elbow ext, as needed for sit to stand. pt verbalized understanding and will take advantage of these opportunities. 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 She is anticipating discharge to skilled care next week if she can get her oxygen needs decreased. Pt left up in recliner, all needs met. Education OT Patient Education: Exercise program, Purpose of tx/functional activities Teaching Recipient: Patient Teaching Methods: Discussion Response to Teaching: Verbalize Understanding OT Short Term Goals Short Term Goals 1=Demonstrate adherence to instructed precautions during ADL tasks. 2=Patient will verbalize/demonstrate understanding of assistive devices/ modifications for ADL. 3=Patient will improve strength/tolerance for activity to enable patient to perform ADL's. OT Mill Representative Goals Mill Representative Goals Time Frame: Jan 12, 2017 Eating (FIM): 6 Eating (QC): 6 Groomin Oral Hygiene (QC): 6 Bathing(FIM): 6 Upper Body Dressing(FIM): 6 Lower Body Dressing(FIM): 6 Toileting(FIM): 6 Toileting Hygiene (QC): 6 Transfers (B,C,W/C) (FIM): 6 Toilet/Commode Transfer(FIM): 6 Toilet/Commode Transfer (QC): 6 Shower Transfer(FIM): 6 Additional Goals: 2-Verbalize Understanding, 3-ImproveStrength/Silvana 1=Demonstrate adherence to instructed precautions during ADL tasks. 2=Patient will verbalize/demonstrate understanding of assistive devices/ modifications for ADL. 3=Patient will improve strength/tolerance for activity to enable patient to perform ADL's. OT Education/Plan Problem List/Assessment Pt would benefit from skilled OT to increase her independence in basic self care to allow her to safely return to her home and to decrease caregiver burden. Discharge Recommendations Plan/Recommendations: Continue POC Treatment Plan/Plan of Care Patient would benefit from OT for education, treatment and training to promote independence in ADL's, mobility, safety and/or upper extremity function for ADL' s. Plan of Care: ADL Retraining, UE Funct Exercise/Act, UE Neuromus Re-Ed/Coord, OTHER (energy conservation education) Treatment Duration: Jan 12, 2017 Frequency: 5 times per week Estimated Hrs Per Day: .25 hour per day Agreement: Yes Rehab Potential: Fair Time/GCodes Start Time: 15:48 Stop Time: 16:03 Total Time Billed (hr/min): 15 Billed Treatment Time visit, 15 minutes exercise JAMES JORDAN OT Jan 05, 2017 16:44
[2017-01-05 18:25] VITALS: BP 93/58
[2017-01-05] MEDS: AMITRIPTYLINE 50 MG (ELAVIL) TAB PO SCH (20:58)
[2017-01-05] MEDS: CYCLOBENZAPRINE 10 MG (FLEXERIL) TAB PO SCH (20:58)
[2017-01-06] MEDS: RT-ALBUTEROL/IPRATROPIUM 3 ML (DUONEB) VIAL INH SCH ×6 (02:22→21:12)
[2017-01-06 08:00] VITALS: BP_SYST 104; BP_DIAS 1; BP_DIAS 51
[2017-01-06] MEDS: predniSONE 10 MG TAB PO SCH (08:52)
[2017-01-06] MEDS: APIXABAN 2.5 MG (ELIQUIS) TABLET PO SCH ×2 (08:52→20:25)
[2017-01-06] MEDS: RAMIPRIL 2.5 MG (ALTACE) CAP PO SCH (08:52)
[2017-01-06] MEDS: CALCIUM CARB + VIT D 600 MG (CALCARB + D) TAB PO SCH ×2 (08:52→20:25)
[2017-01-06] MEDS: KCL 10 MEQ TAB (MICRO K) PO SCH (08:52)
[2017-01-06] MEDS: NICOTINE PATCH REMOVAL TP SCH (08:53)
[2017-01-06] MEDS: meTOprolol TARTRATE 25 MG (LOPRESSOR) TABLET PO SCH ×3 (08:53→20:25)
[2017-01-06] MEDS: NICOTINE 14 MG (NICODERM) PATCH TD SCH (08:53)
[2017-01-06] MEDS: BENZONATATE 100 MG (TESSALON) CAPSULE PO SCH ×3 (08:53→20:25)
[2017-01-06] MEDS: FUROSEMIDE 40 MG/4 ML INJ (LASIX) IVP SCH (09:05)
[2017-01-06] MEDS: ZINC OXIDE 40% OINT (DESITIN) 28 GM TOP PRN (09:06)
--- NOTE | 2017-01-06 10:04 | Physical Therapy Progress Note ---
Therapy Progress Note Attempted x 2 to see pt this date. She declined first visit and requested I return later. Upon return, pt declined again noting, "I have a low grade fever and I just don't have the umph." No treatment rendered at this time. DURGA HAMILTON PT Jan 06, 2017 10:04
--- NOTE | 2017-01-06 10:33 | Progress Note-Hospitalist ---
Subjective HPI/CC On Admission Date Seen by Provider: Jan 06, 2017 Time Seen by Provider: 10:20 Subjective/Events-last exam Pt would like to stop her Lasix today because she's worried she's getting dehydrated. She continues to complain of cough that is occasionally productive. Objective Exam Vital Signs Vital Sign - Last 12Hours 12/31/16 12/31/16 00:00 02:36 Temp 96.5 Pulse 75 Resp 18 B/P (MAP) 108/70 Pulse Ox 93 O2 Delivery Vapotherm O2 Flow Rate 65.00 10.00 FiO2 65 Capillary Refill : General Appearance: No Apparent Distress, Chronically ill Respiratory: No Accessory Muscle Use, No Respiratory Distress, Rhonci Cardiovascular: Regular Rate, Rhythm, No Edema, No Murmur Gastrointestinal: Normal Bowel Sounds, Non Tender, Soft Neurologic/Psychiatric: Alert, Oriented x3 Assessment/Plan Assessment and Plan Assess & Plan/Chief Complaint See Problems Diagnosis/Problems Diagnosis/Problems (1) Adenocarcinoma of lung Assessment & Plan: Follows with Dr. Bermeo, recently diagnosed with radiation pneumonitis Off abx, doing well Pathology from thoracentesis back and shows malignant pleural effusion Continue to titrate oxygen down Will hold Lasix and watch I/Os, would like to keep her negative if able Arranging for DC with hospice likely next week (2) Atrial fibrillation Assessment & Plan: Cardiology following On Metoprolol and Eliquis Qualifiers: Qualified Codes: I48.0 - Paroxysmal atrial fibrillation (3) Normocytic anemia Status: Chronic Assessment & Plan: Stable s/p 2u transfusion on 12/29 (4) Debility Assessment & Plan: PT/OT Q2 turns Rodriguez to prevent desaturation with ambulation (5) Prophylactic measure Assessment & Plan: Eliquis Reg Diet Saline Lock GILLES RICHARDSON MD Jan 06, 2017 10:33
[2017-01-06 13:00] VITALS: BP 116/56
[2017-01-06] MEDS: FERROUS SULF 325 MG (IRON) TAB PO SCH (13:02)
[2017-01-06 19:44] VITALS: BP 110/58
[2017-01-06] MEDS: AMITRIPTYLINE 50 MG (ELAVIL) TAB PO SCH (20:25)
[2017-01-06] MEDS: CYCLOBENZAPRINE 10 MG (FLEXERIL) TAB PO SCH (20:25)
[2017-01-07] MEDS: RT-ALBUTEROL/IPRATROPIUM 3 ML (DUONEB) VIAL INH SCH ×6 (02:12→22:24)
[2017-01-07 06:06] LABS: BASOPHILS % (AUTO) 0 % (0-10); EOSINOPHILS % (AUTO) 0 % (0-10); LYMPHOCYTES # (AUTO) 0.4 X 10^3 (1.0-4.0); LYMPHOCYTES % (AUTO) 4 % (12-44); MEAN CORPUSCULAR HEMOGLOBIN 29 PG (25-34); MEAN CORPUSCULAR HGB CONC 32 G/DL (32-36); MEAN CORPUSCULAR VOLUME 89 FL (80-99); MEAN PLATELET VOLUME 9.2 FL (7.4-10.4); MONOCYTES # (AUTO) 0.6 X 10^3 (0.0-1.0); MONOCYTES % (AUTO) 5 % (0-12); NEUTROPHILS # (AUTO) 10.3 X 10^3 (1.8-7.8); NEUTROPHILS % (AUTO) 91 % (42-75); PLATELET COUNT 435 10^3/uL (130-400); RED BLOOD COUNT 2.55 10^6/uL (4.35-5.85); RED CELL DISTRIBUTION WIDTH 16.5 % (10.0-14.5); WHITE BLOOD COUNT 11.3 10^3/uL (4.3-11.0)
[2017-01-07 06:28] LABS: ANION GAP 10 MMOL/L (5-14); BLOOD UREA NITROGEN 21 MG/DL (7-18); BUN/CREATININE RATIO 36; CARBON DIOXIDE 27 MMOL/L (21-32); CHLORIDE 96 MMOL/L (98-107); CREATININE SERUM 0.58 MG/DL (0.60-1.30); GFR ESTIMATED > 60; GLUCOSE 97 MG/DL (70-105); SODIUM 133 MMOL/L (135-145)
[2017-01-07] MEDS: PROMETHAZINE/ CODEINE SYRUP 5 ML UDC PO PRN ×4 (06:30→21:33)
[2017-01-07 08:00] VITALS: BP 104/51
[2017-01-07] MEDS: KCL 10 MEQ TAB (MICRO K) PO SCH (09:14)
[2017-01-07] MEDS: BENZONATATE 100 MG (TESSALON) CAPSULE PO SCH ×3 (09:14→20:35)
[2017-01-07] MEDS: NICOTINE 14 MG (NICODERM) PATCH TD SCH (09:14)
[2017-01-07] MEDS: RAMIPRIL 2.5 MG (ALTACE) CAP PO SCH (09:14)
[2017-01-07] MEDS: APIXABAN 2.5 MG (ELIQUIS) TABLET PO SCH ×2 (09:14→20:35)
[2017-01-07] MEDS: predniSONE 10 MG TAB PO SCH (09:14)
[2017-01-07] MEDS: CALCIUM CARB + VIT D 600 MG (CALCARB + D) TAB PO SCH ×2 (09:14→20:35)
[2017-01-07] MEDS: NICOTINE PATCH REMOVAL TP SCH (09:14)
[2017-01-07] MEDS: meTOprolol TARTRATE 25 MG (LOPRESSOR) TABLET PO SCH ×3 (09:15→20:35)
[2017-01-07] MEDS: FUROSEMIDE 40 MG/4 ML INJ (LASIX) IVP SCH (09:15)
[2017-01-07] MEDS: FERROUS SULF 325 MG (IRON) TAB PO SCH (12:35)
[2017-01-07 19:44] VITALS: BP 112/59
[2017-01-07] MEDS: CYCLOBENZAPRINE 10 MG (FLEXERIL) TAB PO SCH (20:35)
[2017-01-07] MEDS: AMITRIPTYLINE 50 MG (ELAVIL) TAB PO SCH (20:35)
[2017-01-08] VITALS (9 sets, daily range): BP systolic 92–134; BP diastolic 55–69
[2017-01-08] MEDS: PROMETHAZINE/ CODEINE SYRUP 5 ML UDC PO PRN ×4 (01:05→19:58)
[2017-01-08] MEDS: RT-ALBUTEROL/IPRATROPIUM 3 ML (DUONEB) VIAL INH SCH ×6 (02:50→21:58)
--- NOTE | 2017-01-08 07:51 | Pulmonary Progress Note ---
Subjective Time Seen by Provider: 07:50 Subjective/Events-last exam pt is requiring less oxygen now. She is off Vapotherm Exam Exam Vital Signs Date Time Temp Pulse Resp B/P (MAP) Pulse Ox O2 Delivery O2 Flow Rate FiO2 01/08/17 07:19 92 Vapotherm 8.00 50 01/08/17 02:50 92 Vapotherm 9.00 50 01/07/17 22:24 94 Vapotherm 10.00 50 01/07/17 20:40 Vapotherm 10.00 50 01/07/17 19:44 98.0 98 18 112/59 94 Vapotherm 55.00 11.00 01/07/17 19:28 93 Vapotherm 11.00 55 01/07/17 14:49 93 Vapotherm 11.00 55 01/07/17 11:01 94 Vapotherm 11.00 55 01/07/17 08:00 98.0 70 20 104/51 95 Vapotherm 65.00 12.00 01/07/17 08:00 97 Vapotherm 11.00 55 General Appearance: No Apparent Distress, Chronically ill Respiratory: No Accessory Muscle Use, No Respiratory Distress, Rhonci Cardiovascular: Regular Rate, Rhythm, No Edema, No Murmur Extremity: Non Tender, No Calf Tenderness Neurologic/Psychiatric: Alert, Oriented x3 Skin: Normal Color, Warm/Dry Lymphatic: No Adenopathy Results Lab Laboratory Tests 01/07/17 05:49 Assessment/Plan Assessment/Plan Pneumonia HCAP -Abx D/Cd -Titrate oxygen Malignant effusion cytology is positive for adenocarcinoma continue to monitor COPD -SVNS, oxygen Adenocarcinoma of lung stage III s/p chemoradiation followed by adjuvant chemotherapy -Oncology is following radiation pneumonitis dx 1 month ago prednisone Afib RVR -cardiology following -Cardizem gtt Plan is for discharge this week with home hospice. 232 Clinical Quality Measures DVT/VTE Risk/Contraindication: Risk Factor Score Per Nursin CELIA BARKSDALE DO Jan 08, 2017 07:51
[2017-01-08] MEDS: FUROSEMIDE 40 MG/4 ML INJ (LASIX) IVP SCH (08:18)
[2017-01-08] MEDS: RAMIPRIL 2.5 MG (ALTACE) CAP PO SCH (08:18)
[2017-01-08] MEDS: KCL 10 MEQ TAB (MICRO K) PO SCH (08:18)
[2017-01-08] MEDS: CALCIUM CARB + VIT D 600 MG (CALCARB + D) TAB PO SCH ×2 (08:18→20:00)
[2017-01-08] MEDS: NICOTINE PATCH REMOVAL TP SCH (08:18)
[2017-01-08] MEDS: predniSONE 10 MG TAB PO SCH (08:18)
[2017-01-08] MEDS: NICOTINE 14 MG (NICODERM) PATCH TD SCH (08:18)
[2017-01-08] MEDS: APIXABAN 2.5 MG (ELIQUIS) TABLET PO SCH ×2 (08:19→20:00)
[2017-01-08] MEDS: BENZONATATE 100 MG (TESSALON) CAPSULE PO SCH ×3 (08:19→20:00)
[2017-01-08] MEDS: meTOprolol TARTRATE 25 MG (LOPRESSOR) TABLET PO SCH ×3 (08:19→20:00)
--- NOTE | 2017-01-08 10:55 | Progress Note-Hospitalist ---
Standard Progress Note Progress Notes/Assess & Plan Date Seen 01/08/17 Time Seen by Provider: 10:51 Diagnosis The patient is on a trial of nasal cannula O2 off of Vapotherm. She is comfortable in bed but reports that any little activity takes a considerable period of time to recover. It Is also reported by nursing that she has developed a pressure sore on the buttocks. She is making plans for discharge to a [facility]. She cannot be an Vapotherm if this is to happen. It is also noted that her hemoglobin has fallen to 7.3. There has been no evidence of bleeding and this is likely a metabolic and perhaps a metastatic marrow problem. Physical exam. She appears comfortable at rest and can speak in complete sentences. Lungs show distant breath sounds. There is no dullness to percussion. CV is irregular. The edema of the arms and legs previously noted is now resolved. Impression: Advancing non-small cell carcinoma of the lung. 2.hypoxia secondary to lung involvement. 3.anemia. Plan: Transfuse with 2 units packed red blood cells. Discontinue Lasix. Labs Laboratory Tests 01/07/17 05:49 Diagnosis/Problems Diagnosis/Problems (1) Adenocarcinoma of lung Assessment & Plan: Follows with Dr. Bermeo, recently diagnosed with radiation pneumonitis Off abx, doing well Pathology from thoracentesis back and shows malignant pleural effusion Continue to titrate oxygen down Will hold Lasix and watch I/Os, would like to keep her negative if able Arranging for DC with hospice likely next week (2) Atrial fibrillation Assessment & Plan: Cardiology following On Metoprolol and Eliquis Qualifiers: Qualified Codes: I48.0 - Paroxysmal atrial fibrillation (3) Normocytic anemia Status: Chronic Assessment & Plan: Stable s/p 2u transfusion on 12/29 (4) Debility Assessment & Plan: PT/OT Q2 turns [place] to prevent desaturation with ambulation (5) Prophylactic measure Assessment & Plan: Eliquis Reg Diet Saline Lock NATHALIE PATRICIA MD Jan 08, 2017 10:55
--- NOTE | 2017-01-08 11:17 | Physical Therapy Progress Note ---
Therapy Progress Note Patient declined PT this a.m. and reports to return in p.m. 1 ref JEANNE BANDA PT Jan 08, 2017 11:17
[2017-01-08] MEDS ORDERED: NS IV 500 ML 500 ML ONE (11:49)
[2017-01-08] MEDS: FERROUS SULF 325 MG (IRON) TAB PO SCH (12:17)
--- NOTE | 2017-01-08 12:45 | Occupational Ther Daily Note ---
OT Current Status-Daily Note Subjective Pt sitting in bed. Pt reports she had a hectic morning and is very tired. Agrees to therapy. Pt fatigued quickly, will go back and check on pt for further therapy. Mental Status/Objective Patient Orientation: Person, Place, Time, Situation Functional [place] Measure 0=Not Assessed/NA 4=Minimal Assistance 1=Total Assistance 5=Supervision or Setup 2=Maximal Assistance 6=Modified [place] 3=Moderate Assistance 7=Complete [place] Attachments: IV, Oxygen ADL-Treatment Functional [place] Measure 0=Not Assessed/NA 4=Minimal Assistance 1=Total Assistance 5=Supervision or Setup 2=Maximal Assistance 6=Modified [place] 3=Moderate Assistance 7=Complete IndependenceIRFPAI Quality Coding Scale 6 Independent with activity with or without an assistive device 5 Patient requires set up or clean up by helper. Patient completes activity by themselves 4 Supervision or touching assist (CGA). [place] provide cues , steadying assist 3 The helper provides less than half the effort to complete the activity 2 The helper provides more than half the effort to complete the activity 1 Dependent. The helper does all the effort to complete an activity 7 Patient refused to complete or attempt activity 9 The patient did not perform the activity before the current illness or injury 88 Not attempted due to Medical conditions or safety concerns Grooming (FIM): 5 (After set up, pt able to brush teeth and wash face while seated in bed. ) Oral Hygiene (QC): 5 Other Treatment Pt lying in bed to brush teeth and wash face. Pt completed 2 UE exercises, shldr and elbow flex/ext 1 set 10x, requiring assist with L arm due to pain. Pt reports feeling fatigued. Nrsg to come and take blood soon. After therapy, pt sitting in bed with phone and call light in reach. All needs met in room. OT Short Term Goals Short Term Goals 1=Demonstrate adherence to instructed precautions during ADL tasks. 2=Patient will verbalize/demonstrate understanding of assistive devices/ modifications for ADL. 3=Patient will improve strength/tolerance for activity to enable patient to perform ADL's. OT Studio Owner Goals Nursing Home Goals Time Frame: Jan 12, 2017 Eating (FIM): 6 Eating (QC): 6 Groomin Oral Hygiene (QC): 6 Bathing(FIM): 6 Upper Body Dressing(FIM): 6 Lower Body Dressing(FIM): 6 Toileting(FIM): 6 Toileting Hygiene (QC): 6 Transfers (B,C,W/C) (FIM): 6 Toilet/Commode Transfer(FIM): 6 Toilet/Commode Transfer (QC): 6 Shower Transfer(FIM): 6 Additional Goals: 2-Verbalize Understanding, 3-ImproveStrength/Silv[place] 1=Demonstrate adherence to instructed precautions during ADL tasks. 2=Patient will verbalize/demonstrate understanding of assistive devices/ modifications for ADL. 3=Patient will improve strength/tolerance for activity to enable patient to perform ADL's. OT Education/Plan Problem List/Assessment Pt would benefit from skilled OT to increase her independence in basic self care to allow her to safely return to her home and to decrease caregiver burden. Discharge Recommendations Plan/Recommendations: Continue POC Treatment Plan/Plan of Care Patient would benefit from OT for education, treatment and training to promote independence in ADL's, mobility, safety and/or upper extremity function for ADL' s. Plan of Care: ADL Retraining, UE Funct Exercise/Act, UE Neuromus Re-Ed/Coord, OTHER (energy conservation education) Treatment Duration: Jan 12, 2017 Frequency: 5 times per week Estimated Hrs Per Day: .25 hour per day Agreement: Yes Rehab Potential: Fair Time/GCodes Start Time: 11:55 Stop Time: 12:04 Total Time Billed (hr/min): 9 Billed Treatment Time 1 visit, FA 1 (9 minutes) DURGA FAGAN Jan 08, 2017 12:45
--- NOTE | 2017-01-08 13:05 | Physical Therapy Progress Note ---
Therapy Progress Note Patient declined PT this p.m. due to receiving PRBC. PT to attempt in a.m. 1 ref JEANNE BANDA PT Jan 08, 2017 13:05
--- NOTE | 2017-01-08 14:16 | Occupational Ther Daily Note ---
OT Current Status-Daily Note Subjective Pt lying in bed. Nrsg present in room to clean up pt. Mental Status/Objective Functional [place] Measure 0=Not Assessed/NA 4=Minimal Assistance 1=Total Assistance 5=Supervision or Setup 2=Maximal Assistance 6=Modified [place] 3=Moderate Assistance 7=Complete [place] ADL-Treatment Functional [place] Measure 0=Not Assessed/NA 4=Minimal Assistance 1=Total Assistance 5=Supervision or Setup 2=Maximal Assistance 6=Modified [place] 3=Moderate Assistance 7=Complete IndependenceIRFPAI Quality Coding Scale 6 Independent with activity with or without an assistive device 5 Patient requires set up or clean up by helper. Patient completes activity by themselves 4 Supervision or touching assist (CGA). [place] provide cues , steadying assist 3 The helper provides less than half the effort to complete the activity 2 The helper provides more than half the effort to complete the activity 1 Dependent. The helper does all the effort to complete an activity 7 Patient refused to complete or attempt activity 9 The patient did not perform the activity before the current illness or injury 88 Not attempted due to Medical conditions or safety concerns Pt was able to assist with rolling side to side while nrsg cleaned pt. Assist needed for scoot up in bed. Pt was able to reach and grasp objects with B UE's then bring to mouth. Pt fatigues easily during functional tasks. Pt had visitors coming into room and declined any further therapy. Call light/phone in reach. All needs met in room. OT Short Term Goals Short Term Goals 1=Demonstrate adherence to instructed precautions during ADL tasks. 2=Patient will verbalize/demonstrate understanding of assistive devices/ modifications for ADL. 3=Patient will improve strength/tolerance for activity to enable patient to perform ADL's. OT Shrimp Peeler Goals Fci Goals Time Frame: Jan 12, 2017 Eating (FIM): 6 Eating (QC): 6 Groomin Oral Hygiene (QC): 6 Bathing(FIM): 6 Upper Body Dressing(FIM): 6 Lower Body Dressing(FIM): 6 Toileting(FIM): 6 Toileting Hygiene (QC): 6 Transfers (B,C,W/C) (FIM): 6 Toilet/Commode Transfer(FIM): 6 Toilet/Commode Transfer (QC): 6 Shower Transfer(FIM): 6 Additional Goals: 2-Verbalize Understanding, 3-ImproveStrength/Silvana 1=Demonstrate adherence to instructed precautions during ADL tasks. 2=Patient will verbalize/demonstrate understanding of assistive devices/ modifications for ADL. 3=Patient will improve strength/tolerance for activity to enable patient to perform ADL's. OT Education/Plan Problem List/Assessment Pt would benefit from skilled OT to increase her independence in basic self care to allow her to safely return to her home and to decrease caregiver burden. Discharge Recommendations Plan/Recommendations: Continue POC Treatment Plan/Plan of Care Patient would benefit from OT for education, treatment and training to promote independence in ADL's, mobility, safety and/or upper extremity function for ADL' s. Plan of Care: ADL Retraining, UE Funct Exercise/Act, UE Neuromus Re-Ed/Coord, OTHER (energy conservation education) Treatment Duration: Jan 12, 2017 Frequency: 5 times per week Estimated Hrs Per Day: .25 hour per day Agreement: Yes Rehab Potential: Fair Time/GCodes Start Time: 14:04 Stop Time: 14:10 Total Time Billed (hr/min): 6 Billed Treatment Time 1 visit DURGA FAGAN Jan 08, 2017 14:16
[2017-01-08] MEDS: AMITRIPTYLINE 50 MG (ELAVIL) TAB PO SCH (22:03)
[2017-01-08] MEDS: CYCLOBENZAPRINE 10 MG (FLEXERIL) TAB PO SCH (22:03)
[2017-01-09] MEDS: PROMETHAZINE/ CODEINE SYRUP 5 ML UDC PO PRN ×2 (00:02→09:29)
[2017-01-09] MEDS: RT-ALBUTEROL/IPRATROPIUM 3 ML (DUONEB) VIAL INH SCH ×6 (01:12→21:53)
--- NOTE | 2017-01-09 07:16 | Pulmonary Progress Note ---
Subjective Time Seen by Provider: 07:16 Subjective/Events-last exam Pt appears comfortable. SHe is down to 4 liters NC. Exam Exam Vital Signs Date Time Temp Pulse Resp B/P (MAP) Pulse Ox O2 Delivery O2 Flow Rate FiO2 01/09/17 01:13 93 Nasal Cannula 4.00 01/08/17 21:59 96 Nasal Cannula 4.00 01/08/17 20:00 Nasal Cannula 4.00 01/08/17 19:43 98.9 96 16 108/69 96 01/08/17 18:34 95 Nasal Cannula 4.00 01/08/17 17:38 98.7 92 18 116/59 98 Nasal Cannula 6.00 01/08/17 15:40 98.8 90 18 98/61 97 Nasal Cannula 6.00 01/08/17 15:22 99.0 90 18 92/55 97 Nasal Cannula 6.00 01/08/17 14:31 97 Nasal Cannula 6.00 01/08/17 12:46 98.9 92 18 134/63 95 Room Air 01/08/17 12:42 99.0 92 18 94/61 99 Nasal Cannula 8.00 01/08/17 12:21 98.6 89 18 95/62 Nasal Cannula 8.00 01/08/17 10:43 98 Nasal Cannula 8.00 01/08/17 08:15 98 Nasal Cannula 8.00 01/08/17 08:00 98.6 104 18 108/69 98 Vapotherm 55.00 11.00 01/08/17 07:19 87 92 01/08/17 07:19 92 Vapotherm 8.00 50 General Appearance: No Apparent Distress, Chronically ill Respiratory: No Accessory Muscle Use, No Respiratory Distress, Rhonci, Wheezing Cardiovascular: Regular Rate, Rhythm, No Edema, No Murmur Extremity: Non Tender, No Calf Tenderness Neurologic/Psychiatric: Alert, Oriented x3 Skin: Normal Color, Warm/Dry Lymphatic: No Adenopathy Assessment/Plan Assessment/Plan Pneumonia HCAP -Abx D/Cd -Titrate oxygen Malignant effusion cytology is positive for adenocarcinoma continue to monitor COPD -SVNS, oxygen Adenocarcinoma of lung stage III s/p chemoradiation followed by adjuvant chemotherapy -Oncology is following radiation pneumonitis dx 1 month ago prednisone Afib RVR -cardiology following -Cardizem gtt Plan is for home hospice. 232 Clinical Quality Measures DVT/VTE Risk/Contraindication: Risk Factor Score Per Nursin CELIA BARKSDALE DO Jan 09, 2017 07:16
[2017-01-09 08:00] VITALS: BP 115/55
[2017-01-09] MEDS: BENZONATATE 100 MG (TESSALON) CAPSULE PO SCH ×3 (09:29→21:41)
[2017-01-09] MEDS: CALCIUM CARB + VIT D 600 MG (CALCARB + D) TAB PO SCH ×2 (09:30→21:41)
[2017-01-09] MEDS: meTOprolol TARTRATE 25 MG (LOPRESSOR) TABLET PO SCH ×3 (09:30→21:41)
[2017-01-09] MEDS: NICOTINE PATCH REMOVAL TP SCH (09:30)
[2017-01-09] MEDS: predniSONE 10 MG TAB PO SCH (09:30)
[2017-01-09] MEDS: NICOTINE 14 MG (NICODERM) PATCH TD SCH (09:30)
[2017-01-09] MEDS: APIXABAN 2.5 MG (ELIQUIS) TABLET PO SCH ×2 (09:30→21:41)
[2017-01-09] MEDS: KCL 10 MEQ TAB (MICRO K) PO SCH (09:30)
[2017-01-09] MEDS: RAMIPRIL 2.5 MG (ALTACE) CAP PO SCH (09:30)
--- NOTE | 2017-01-09 09:57 | Physical Therapy Daily Note ---
PT Daily Note-Current Subjective Patient agrees to bed exercises only. Pain Numeric Pain Scale: 0-No Pain Location: No Pain Reported Mental Status Patient Orientation: Normal For Age Attachments: Oxygen Transfers Functional [place] Measure 0=Not Assessed/NA 4=Minimal Assistance 1=Total Assistance 5=Supervision or Setup 2=Maximal Assistance 6=Modified [place] 3=Moderate Assistance 7=Complete IndependenceIRFPAI Quality Coding Scale 6 Independent with activity with or without an assistive device 5 Patient requires set up or clean up by helper. Patient completes activity by themselves 4 Supervision or touching assist (CGA). [place] provide cues , steadying assist 3 The helper provides less than half the effort to complete the activity 2 The helper provides more than half the effort to complete the activity 1 Dependent. The helper does all the effort to complete an activity 7 Patient refused to complete or attempt activity 9 The patient did not perform the activity before the current illness or injury 88 Not attempted due to Medical conditions or safety concerns Exercises Supine Ex: Ankle pumps, Quad Set, Heel Slides, Straight leg raise, Hip abd/add Supine Reps: 15 ( x 2 sets) Assessment Patient tolerated treatment well and remains in bed with needs met. PT Director Integrated Goals Long-Term Goals PT Director Integrated Goals Time Frame: Jan 12, 2017 Transfers (B,C,W/C) (FIM): 6 Sit to Lying (QC): 5 Lying-Sitting on Side/Bed(QC): 5 Sit to Stand (QC): 5 Rollin Chair/Ibs-sp-Wuvhg Xfer(QC): 5 Does the Patient Walk: Yes Gait (FIM): 2 Gait distance (FIM): 9=859-10 ft Distance: 125' Walk 50ft with 2 Turns (QC): 5 Walk 150 ft (QC): 5 Gait Level of Assist: 6 Gait Assistive Device: FWW PT Plan Treatment/Plan Treatment Plan: Continue Plan of Care Treatment Plan: Education, Functional Activity Silvana, Functional Strength, Gait , Safety, Therapeutic Exercise, Transfers Treatment Duration: Jan 12, 2017 Frequency: 6 times per week Estimated Hrs Per Day: .25 hour per day Patient and/or Family Agrees t: Yes Time/GCodes Time In: 905 Time Out: 920 Total Billed Treatment Time: 15 Total Billed Treatment 1 visit EX 15 min JEANNE BANDA PT Jan 09, 2017 09:57
[2017-01-09] MEDS ORDERED: HYDR-3812 PO (10:03)
[2017-01-09 10:33] LABS: BASOPHILS % (AUTO) 0 % (0-10); EOSINOPHILS # (AUTO) 0.1 10^3/uL (0.0-0.3); EOSINOPHILS % (AUTO) 1 % (0-10); LYMPHOCYTES # (AUTO) 0.6 X 10^3 (1.0-4.0); LYMPHOCYTES % (AUTO) 5 % (12-44); MEAN CORPUSCULAR HEMOGLOBIN 28 PG (25-34); MEAN CORPUSCULAR HGB CONC 33 G/DL (32-36); MEAN CORPUSCULAR VOLUME 87 FL (80-99); MEAN PLATELET VOLUME 9.3 FL (7.4-10.4); MONOCYTES # (AUTO) 0.7 X 10^3 (0.0-1.0); MONOCYTES % (AUTO) 6 % (0-12); NEUTROPHILS # (AUTO) 11.5 X 10^3 (1.8-7.8); NEUTROPHILS % (AUTO) 89 % (42-75); PLATELET COUNT 323 10^3/uL (130-400); RED BLOOD COUNT 3.29 10^6/uL (4.35-5.85); RED CELL DISTRIBUTION WIDTH 16.1 % (10.0-14.5); WHITE BLOOD COUNT 12.9 10^3/uL (4.3-11.0)
[2017-01-09] MEDS ORDERED: METO-333 PO (10:46)
[2017-01-09] MEDS ORDERED: FURO20TA4 PO (10:46)
[2017-01-09] MEDS ORDERED: APIX2.5T PO (10:46)
--- NOTE | 2017-01-09 11:21 | Progress Note-Hospitalist ---
Standard Progress Note Progress Notes/Assess & Plan Date Seen 01/09/17 Time Seen by Provider: 10:49 Assess & Plan/Chief Complaint The patient has exhibited satisfactory SaO2's on O2 by nasal cannula at 4 L. This will allow her to be discharged to a correction on hospice. Plans have been made and barring change in condition this will happen tomorrow. We had a discussion about medications for chronic disease that might be for the preservation and prolongation of a healthy existence. These would seem inappropriate concerns at this time. Accordingly several of her cardiac drugs will be discontinued as well as multivitamins etc. Hospice has been here and medications have been written in anticipation of tomorrow's discharge. Physical exam: The patient is alert and comfortable. Lungs are clear to auscultation. CV is regular. Abdomen is soft without masses or tenderness. Again no edema is noted. Impression: Metastatic adenocarcinoma of the lung. 2.terminal status with collection of hospice services. Plan: See discharge sequence for medications and instructions Labs Laboratory Tests 01/09/17 10:21 Diagnosis/Problems Diagnosis/Problems (1) Adenocarcinoma of lung Assessment & Plan: Follows with Dr. Bermeo, recently diagnosed with radiation pneumonitis Off abx, doing well Pathology from thoracentesis back and shows malignant pleural effusion Continue to titrate oxygen down Will hold Lasix and watch I/Os, would like to keep her negative if able Arranging for DC with hospice likely next week (2) Atrial fibrillation Assessment & Plan: Cardiology following On Metoprolol and Eliquis Qualifiers: Qualified Codes: I48.0 - Paroxysmal atrial fibrillation (3) Normocytic anemia Status: Chronic Assessment & Plan: Stable s/p 2u transfusion on 12/29 (4) Debility Assessment & Plan: PT/OT Q2 turns Michael to prevent desaturation with ambulation (5) Prophylactic measure Assessment & Plan: Eliquis Reg Diet Saline Lock NATHALIE PATRICIA MD Jan 09, 2017 11:21
[2017-01-09] MEDS: FERROUS SULF 325 MG (IRON) TAB PO SCH (12:06)
--- NOTE | 2017-01-09 12:55 | Occ Therapy Progress Note ---
Therapy Progress Note Attempted to see pt at 1220. Pt declined therapy, c/o fatigue stating that she hadn't gotten much sleep last night. Will check on pt later in after noon. DURGA FAGAN Jan 09, 2017 12:55
[2017-01-09 16:33] VITALS: BP 109/71
[2017-01-09 19:52] VITALS: BP 109/53
[2017-01-09] MEDS: AMITRIPTYLINE 50 MG (ELAVIL) TAB PO SCH (21:41)
[2017-01-09] MEDS: CYCLOBENZAPRINE 10 MG (FLEXERIL) TAB PO SCH (21:42)
[2017-01-10] MEDS: PROMETHAZINE/ CODEINE SYRUP 5 ML UDC PO PRN ×2 (00:23→09:17)
[2017-01-10] MEDS: RT-ALBUTEROL/IPRATROPIUM 3 ML (DUONEB) VIAL INH SCH ×3 (03:13→10:34)
--- NOTE | 2017-01-10 06:54 | Pulmonary Progress Note ---
Subjective Time Seen by Provider: 06:54 Subjective/Events-last exam pt is comfortable on 3-4liter NC Exam Exam Vital Signs Date Time Temp Pulse Resp B/P (MAP) Pulse Ox O2 Delivery O2 Flow Rate FiO2 01/10/17 06:36 93 Nasal Cannula 4.00 01/10/17 03:13 94 Nasal Cannula 4.00 01/09/17 21:53 91 Nasal Cannula 4.00 01/09/17 20:00 Nasal Cannula 4.00 01/09/17 19:52 98.2 98 20 109/53 93 01/09/17 18:55 91 Nasal Cannula 4.00 01/09/17 16:33 97.1 84 20 109/71 93 01/09/17 15:16 93 Nasal Cannula 4.00 01/09/17 10:44 91 Nasal Cannula 4.00 01/09/17 08:02 Nasal Cannula 4.00 01/09/17 08:00 98.5 102 24 115/55 94 01/09/17 07:20 92 Nasal Cannula 4.00 General Appearance: No Apparent Distress, Chronically ill Respiratory: No Accessory Muscle Use, No Respiratory Distress, Rhonci, Wheezing Cardiovascular: Regular Rate, Rhythm, No Edema, No Murmur Extremity: Non Tender, No Calf Tenderness Neurologic/Psychiatric: Alert, Oriented x3 Skin: Normal Color, Warm/Dry Lymphatic: No Adenopathy Results Lab Laboratory Tests 01/09/17 10:21 Assessment/Plan Assessment/Plan Pneumonia HCAP -Abx D/Cd -Titrate oxygen Malignant effusion cytology is positive for adenocarcinoma continue to monitor COPD -SVNS, oxygen Adenocarcinoma of lung stage III s/p chemoradiation followed by adjuvant chemotherapy -Oncology is following radiation pneumonitis dx 1 month ago prednisone Afib RVR -cardiology following -Cardizem gtt Plan is for home hospice. 232 Clinical Quality Measures DVT/VTE Risk/Contraindication: Risk Factor Score Per Nursin CELIA BARKSDALE DO Jan 10, 2017 06:54
[2017-01-10 08:00] VITALS: BP 104/68
[2017-01-10] MEDS: NICOTINE 14 MG (NICODERM) PATCH TD SCH (08:59)
[2017-01-10] MEDS: RAMIPRIL 2.5 MG (ALTACE) CAP PO SCH (08:59)
[2017-01-10] MEDS: BENZONATATE 100 MG (TESSALON) CAPSULE PO SCH (08:59)
[2017-01-10] MEDS: predniSONE 10 MG TAB PO SCH (08:59)
[2017-01-10] MEDS: CALCIUM CARB + VIT D 600 MG (CALCARB + D) TAB PO SCH (08:59)
[2017-01-10] MEDS: KCL 10 MEQ TAB (MICRO K) PO SCH (08:59)
[2017-01-10] MEDS: APIXABAN 2.5 MG (ELIQUIS) TABLET PO SCH (08:59)
[2017-01-10] MEDS: meTOprolol TARTRATE 25 MG (LOPRESSOR) TABLET PO SCH (08:59)
[2017-01-10] MEDS: NICOTINE PATCH REMOVAL TP SCH (08:59)
--- NOTE | 2017-01-10 11:47 | Therapy Team Discharge Summary ---
Therapy Discharge Summary Discharge Recommendations Date of Discharge Occupational Therapy Pt admitted to [facility] following acute hospitalization for pneumonia/lung cancer. On admission pt completed eating with modified independence, grooming with SBA, toileting with total assist, and toilet transfer with minimal assistance. Pt participated in simple ADL tasks and UE exercises at bed level. Pt progress and participation was limited by fatigue. Pt did not meet any OT LTG. Pt discharged to [facility] this date for continued care. D/C SWB OT at this time. Decreased Activ Tolerance, Decreased UE Strength, Impaired Self-Care Skills PT Usp Goals Automation Specialist Goals PT Usp Goals Time Frame: Jan 12, 2017 Transfers (B,C,W/C) (FIM): 6 Sit to Lying (QC): 5 Lying-Sitting on Side/Bed(QC): 5 Sit to Stand (QC): 5 Rollin Chair/[id number]-Vhxrc Xfer(QC): 5 Does the Patient Walk: Yes Gait (FIM): 2 Gait distance (FIM): 3=767-54 ft Distance: 125' Walk 50ft with 2 Turns (QC): 5 Walk 150 ft (QC): 5 Gait Level of Assist: 6 Gait Assistive Device: FWW OT Automation Specialist Goals Usp Goals Time Frame: Jan 12, 2017 Eating (FIM): 6 Eating (QC): 6 Groomin Oral Hygiene (QC): 6 Bathing(FIM): 6 Upper Body Dressing(FIM): 6 Lower Body Dressing(FIM): 6 Toileting(FIM): 6 Toileting Hygiene (QC): 6 Transfers (B,C,W/C) (FIM): 6 Toilet/Commode Transfer(FIM): 6 Toilet/Commode Transfer (QC): 6 Shower Transfer(FIM): 6 Additional Goals: 2-Verbalize Understanding, 3-ImproveStrength/Silvana 1=Demonstrate adherence to instructed precautions during ADL tasks. 2=Patient will verbalize/demonstrate understanding of assistive devices/ modifications for ADL. 3=Patient will improve strength/tolerance for activity to enable patient to perform ADL's. АНДРЕЙ KAMARA OT Jan 10, 2017 11:47
--- NOTE | 2017-01-11 13:40 | Therapy Team Discharge Summary ---
Therapy Discharge Summary Discharge Recommendations Date of Discharge Jan 10, 2017 at 11:35 Therapy D/C Recommendations: Retirement Placement Physical Therapy Patient seen by skilled PT to address functional strength and mobility due to recent diagnosis of metastatic cancer. Patient remains on O2 continuous and limited mobility due to increase SOA with minimal activity. Patient is SBA with all gross motor skills and will dismiss to NH for continued care. Goals address but not met. Occupational Therapy Decreased Activ Tolerance, Decreased UE Strength, Impaired Self-Care Skills PT Fdc Goals Fdc Goals PT Supervisor Taping Goals Time Frame: Jan 12, 2017 Transfers (B,C,W/C) (FIM): 6 Sit to Lying (QC): 5 Lying-Sitting on Side/Bed(QC): 5 Sit to Stand (QC): 5 Rollin Chair/[id number]-Ggkdq Xfer(QC): 5 Does the Patient Walk: Yes Gait (FIM): 2 Gait distance (FIM): 2=027-36 ft Distance: 125' Walk 50ft with 2 Turns (QC): 5 Walk 150 ft (QC): 5 Gait Level of Assist: 6 Gait Assistive Device: FWW OT Fdc Goals Supervisor Taping Goals Time Frame: Jan 12, 2017 Eating (FIM): 6 Eating (QC): 6 Groomin Oral Hygiene (QC): 6 Bathing(FIM): 6 Upper Body Dressing(FIM): 6 Lower Body Dressing(FIM): 6 Toileting(FIM): 6 Toileting Hygiene (QC): 6 Transfers (B,C,W/C) (FIM): 6 Toilet/Commode Transfer(FIM): 6 Toilet/Commode Transfer (QC): 6 Shower Transfer(FIM): 6 Additional Goals: 2-Verbalize Understanding, 3-ImproveStrength/Silvana 1=Demonstrate adherence to instructed precautions during ADL tasks. 2=Patient will verbalize/demonstrate understanding of assistive devices/ modifications for ADL. 3=Patient will improve strength/tolerance for activity to enable patient to perform ADL's. JEANNE BANDA PT Jan 11, 2017 13:39
== END 2017-01-10 11:35 | disposition hospice, inpatient (51) | DRG 190 ==
LOC: 4TH 11:06
PROVIDERS: ADMIT Internal Medicine; ATTEND Internal Medicine
DX: J44.0 Chronic obstructive pulmonary disease with (acute) lower respiratory infection (principal); J18.9 Pneumonia, unspecified organism; C34.2 Malignant neoplasm of middle lobe, bronchus or lung; J91.0 Malignant pleural effusion; C77.1 Secondary and unspecified malignant neoplasm of intrathoracic lymph nodes; J70.0 Acute pulmonary manifestations due to radiation; B37.0 Candidal stomatitis; J44.1 Chronic obstructive pulmonary disease with (acute) exacerbation; Z66 Do not resuscitate; L89.302 Pressure ulcer of unspecified buttock, stage 2; I48.0 Paroxysmal atrial fibrillation; D64.9 Anemia, unspecified; I49.1 Atrial premature depolarization; I10 Essential (primary) hypertension; E78.00 Pure hypercholesterolemia, unspecified; F17.210 Nicotine dependence, cigarettes, uncomplicated; F32.9 Major depressive disorder, single episode, unspecified; N39.3 Stress incontinence (female) (male); R91.8 Other nonspecific abnormal finding of lung field; W88.1XXA Exposure to radioactive isotopes, initial encounter; Z79.899 Other long term (current) drug therapy; Z79.52 Long term (current) use of systemic steroids; Z90.81 Acquired absence of spleen; Z90.49 Acquired absence of other specified parts of digestive tract; Z92.21 Personal history of antineoplastic chemotherapy; Z92.3 Personal history of irradiation
CPT/HCPCS: 36415; 71010; 80048; 80053; 83735; 83880; 84100; 85025; 85027; 86850; 86900; 86901; 86920; 87040; 94640; 94760